=== PATIENT | male | born 1975 | race Asian ===

== ENCOUNTER 2021-06-30 12:46 | Inpatient (IN) | payer OTHER ==
[~2021-06-30] VITALS: Ht 165.1 cm; Wt 54.4 kg
--- NOTE | 2021-06-30 12:55 | NUR ---
[facility] [phone] [facility] [phone]
[2021-06-30] MEDS ORDERED: IV NS 0.9% 1,000 ML BAG IV ONE (13:00)
--- NOTE | 2021-06-30 13:20 | NUR ---
IFC F16 INSERTED. URINE SAMPLE SENT TO LAB
--- NOTE | 2021-06-30 13:24 | NUR ---
MOVE SHEET SUBMITTED.
--- NOTE | 2021-06-30 13:26 | NUR ---
CXR DONE AT BEDSIDE
--- NOTE | 2021-06-30 13:27 | NUR ---
FULL code per charge nurse Hoang De Leon - she will fax the POLST to [phone]
--- NOTE | 2021-06-30 13:30 | NUR ---
COVID ANTIGEN SWAB SENT TO LAB
--- NOTE | 2021-06-30 13:40 | NUR ---
RECTAL TUBE INSERTED
[2021-06-30] MEDS ORDERED: ASCO-352 GT (14:05)
[2021-06-30] MEDS ORDERED: [UNRECOGNIZED DRUG - CODE] SQ (14:05)
[2021-06-30] MEDS ORDERED: AMIO200T5 GT (14:05)
[2021-06-30] MEDS ORDERED: NA P133E RC (14:05)
[2021-06-30] MEDS ORDERED: MAGN400O6 GT (14:05)
[2021-06-30] MEDS ORDERED: NUT.237L67 GT (14:05)
[2021-06-30] MEDS ORDERED: PANT40SU2 GT (14:05)
[2021-06-30] MEDS ORDERED: MELA5TAB GT (14:05)
[2021-06-30] MEDS ORDERED: ALLO100T GT (14:05)
[2021-06-30] MEDS ORDERED: AMIN30LI2 GT (14:05)
[2021-06-30] MEDS ORDERED: ATOR20TA GT (14:05)
[2021-06-30] MEDS ORDERED: HYDR-4076 GT (14:05)
[2021-06-30] MEDS ORDERED: SENN-261 GT (14:05)
[2021-06-30] MEDS ORDERED: CARV3.12 GT (14:05)
[2021-06-30] MEDS ORDERED: BISA10SU11 RC (14:05)
[2021-06-30] MEDS ORDERED: MAG30ORA GT (14:05)
[2021-06-30] MEDS ORDERED: FOLI0.8T2 GT (14:05)
[2021-06-30] MEDS ORDERED: ISOS10TA2 GT (14:05)
[2021-06-30] MEDS ORDERED: AMLO-213 GT (14:05)
[2021-06-30] MEDS ORDERED: PETR113O TP (14:05)
[2021-06-30] MEDS ORDERED: ACET-868 GT (14:05)
[2021-06-30] MEDS ORDERED: ZINC56.713 TP (14:05)
[2021-06-30 14:17] LABS: BASOPHILS # (AUTO) 0.1 K/uL (0.0-0.2); BASOPHILS % (AUTO) 0.7 % (0.0-2.0); EOSINOPHILS % (AUTO) 0.2 % (0.0-6.0); LYMPHOCYTES # (AUTO) 2.9 K/uL (0.8-4.8); LYMPHOCYTES % (AUTO) 14.9 % (20.0-44.0); MEAN CORPUSCULAR HGB CONC 32 g/dl (31.0-36.0); MEAN CORPUSCULAR VOLUME 91 fL (80-96); MONOCYTES # (AUTO) 1.4 K/uL (0.1-1.30); MONOCYTES % (AUTO) 7.3 % (2.0-12.0); NEUTROPHILS # (AUTO) 14.8 K/uL (1.8-8.9); NEUTROPHILS % (AUTO) 76.9 % (43.0-81.0); PLATELET COUNT (AUTO) 366 K/uL (150-450); RED BLOOD CELL COUNT(AUTO) 2.03 MIL/uL (4.5-6.0); WHITE BLOOD COUNT (AUTO) 19.2 K/uL (4.3-11.0)
[2021-06-30] MEDS ORDERED: PANTOPRAZOLE 40 MG VIAL IV ONE (14:30)
[2021-06-30] MEDS ORDERED: PANTOPRAZOLE 40 MG VIAL ONE (14:32)
[2021-06-30 14:47] LABS: ALBUMIN 1.6 g/dL (3.4-5.0); BILIRUBIN,DIRECT 0.1 mg/dL (0.0-0.2); BILIRUBIN,TOTAL 0.3 mg/dL (0.2-1.0); CALCIUM, SERUM 7.7 mg/dL (8.5-10.1); CREATININE 3.1 mg/dL (0.6-1.3); POTASSIUM 3.4 mmol/L (3.5-5.1); TOTAL PROTEIN, SERUM 6.6 g/dL (6.4-8.2)
[2021-06-30 14:51] LABS: BILIRUBIN,URINE NEGATIVE (NEGATIVE); COLOR,URINE YELLOW (YELLOW); LEUKOCYTE ESTERASE ,URINE NEGATIVE (NEGATIVE); NITRITE, URINE NEGATIVE (NEGATIVE); PROTEIN,URINE 30 mg/dl (NEGATIVE); UGLUCOSE NEGATIVE (NEGATIVE); UROBILINOGEN,URINE 0.2 EU/dL (0.2)
[2021-06-30 14:55] LABS: HEMOGLOBIN 5.9 g/dL (13.5-17.5); OCCULT BLOOD STOOL POSITIVE (NEGATIVE)
[2021-06-30 14:56] LABS: HEMATOCRIT 19 % (39-51)
[2021-06-30] MEDS ORDERED: Z GUARD REMEDY 4 OZ OINT TP PRN (15:00)
[2021-06-30] MEDS ORDERED: ONDANSETRON HCL/PF 4 MG/2 ML VIAL IVP PRN (15:00)
[2021-06-30] MEDS ORDERED: ACETAMINOPHEN 325 MG TABLET PO PRN (15:00)
--- NOTE | 2021-06-30 15:01 | NUR ---
RECEIVED A CRITICAL RESULT FROM LAB KAYCEE [id number] BRAY MADE AWARE
[2021-06-30] MEDS ORDERED: VANCOMYCIN 1 GM in IV D5W 250 ML IV ONE (15:30)
[2021-06-30] MEDS ORDERED: CEFEPIME 1 GM in IV D5W 50 ML IV ONE (15:30)
[2021-06-30] MEDS ORDERED: CEFEPIME 1 GM VIAL ONE (15:39)
[2021-06-30] MEDS ORDERED: ONDANSETRON HCL/PF 4 MG/2 ML VIAL ONE (15:40)
[2021-06-30 15:44] LABS: BACTERIA,URINE 1+ /HPF (None Seen); SQUAMOUS EPITHELIAL CELL,UR 0-2 /HPF (None Seen)
[2021-06-30 15:59] LABS: BAND % (MANUAL) 2 % (0.0-5.0); LYMPHOCYTES % (MANUAL) 14 % (16-48); MONOCYTES % (MANUAL) 5 % (0-11.0); NEUTROPHILS % (MANUAL) 78 (42-76); REACTIVE LYMPHOCYTES 1 % (0-0)
--- NOTE | 2021-06-30 16:17 | NUR ---
CALLED NEPHOROLOGY CALLING SELVIN [phone] WILL BE PAGED.
[2021-06-30] MEDS ORDERED: CEFEPIME 1 GM in IV D5W 50 ML IV SCH (16:30)
--- NOTE | 2021-06-30 16:39 | NUR ---
maxipime 1g not administered duplicate order. dr gomes made aware.
[2021-06-30] MEDS ORDERED: VANCOMYCIN 500 MG in IV D5W 100 ML IV PRN (17:00)
--- NOTE | 2021-06-30 17:03 | NUR ---
NEPHOROLOGY DR. ROBYN DOMINGUEZ [phone]
--- NOTE | 2021-06-30 18:42 | NUR ---
GOING TO 312.2 AFTER SHIFT
--- NOTE | 2021-06-30 19:57 | NUR ---
REPORT GIVEN TO AMISHA LUNDBERG.
[2021-06-30 20:00] VITALS: BP 119/75
--- NOTE | 2021-06-30 20:15 | NUR ---
TELE/RN ADMITTING NOTE RECEIVED REPORT FROM MOLDER BENCH ALANA. PATIENT ARRIVED TO UNIT VIA GURNEY AND 2 STAFF MEMBERS. PATIENT IS BEING ADMITTED WITH DX OF ACUTE LOWER GI BLEED. PATIENT IS ALERT AND ORIENTED X 1 AT BASELINE. ABLE TO ANSWER SIMPLE YES/NO QUESTIONS. CONTINUES ON O2 4L VIA NC WITH NO S/SX OF RESPIRATORY DISTRESS NOTED. IV ACCESS TO RIGHT AC #18G, LEFT AC #20G AND LEFT HAND #20G ALL INTACT, PATENT AND SALINE LOCKED. RIGHT CHEST WALL PERMA CATH IN PLACE FOR HD. DRESSING IS CLEAN, DRY AND INTACT. CONTINUES WITH 1ST UNIT OF PRBC WITH NO S/SX OF ADVERSE REACTIONS NOTED. PATIENT IS NPO AT THIS TIME. GTUBE IN PLACE WITH DRESSING CLEAN, DRY AND INTACT. FLUSHED WITH 100CC H2O WITH NO RESISTANCE NOTED. NO RESIDUAL AT THIS TIME. SKIN CHECK PERFORMED ON ADMISSION WITH HEALING ABRASIONS X 3 TO LEFT THIGH. PICTURE TAKEN AND PLACED IN CHART. WOUND CONSULT ORDERED. AREA LEFT OPEN TO AIR - NO DRAINAGE NOTED. CONTACTED [facility] AND SPOKE WITH NURSE RENDON REGARDING PATIENTS STATUS. PATIENT IS VACCINATED AGAINST COVID 19 X 2 DOSES. AT FACILITY, PATIENT HAD GT FEED NEPRO @ 70ML/HR X 14HRS. PATIENT CONNECTED TO TELE MONITOR WITH CURRENT READING SR. PATIENT ORIENTED TO ROOM, CALL LIGHT AND UNIT. CALL LIGHT WITHIN REACH. ASPIRATION, FALL AND SAFETY PRECAUTIONS MAINTAINED. WILL CONTINUE TO MONITOR.
--- NOTE | 2021-06-30 20:17 | NUR ---
pt transferred to 3w per acls protocol.
[2021-06-30 22:00] VITALS: BP 119/75
[2021-06-30 22:21] VITALS: BP 108/65
[2021-06-30 22:36] VITALS: BP 100/60
[2021-06-30 23:21] VITALS: BP 110/65
[2021-07-01] VITALS (8 sets, daily range): BP systolic 102–126; BP diastolic 59–79
--- NOTE | 2021-07-01 05:45 | NUR ---
TELE/RN NOTE CONTACTED PATIENT'S FABY BARRETO. OBTAINED CONSENT FOR HEMODIALYSIS AND GAVE UPDATE ON PATIENT. HD CONSENT COSIGNED WITH KRISTIAN LUNDBERG.
--- NOTE | 2021-07-01 06:30 | NUR ---
TELE/RN NOTE PATIENT CURRENTLY SLEEPING IN BED. ALERT AND ORIENTED TO NAME. ABLE TO ANSWER SIMPLE YES/NO QUESTIONS. CONTINUES ON O2 4L VIA NC WITH NO S/SX OF RESPIRATORY DISTRESS NOTED. IV ACCESS TO RIGHT AC #18G, LEFT AC #20G AND LEFT HAND #20G INTACT, PATENT AND SALINE LOCKED. RIGHT CHEST WALL PERMACATH IN PLACE FOR HD. GOFF CATHETER DRAINING CLEAR, YELLOW URINE TO GRAVITY. OUTPUT THIS SHIFT IS 350ML. FLEXISEAL IN PLACE WITH NO STOOL NOTED. CONTINUES ON NPO STATUS. CALL LIGHT WITHIN REACH. ASPIRATION, FALL AND SAFETY PRECAUTIONS MAINTAINED. WILL ENDORSE PLAN OF CARE TO ONCOMING SHIFT. Addendum: 07/01/21 at 0653 by AMISHA TURNER RN TELE MONITOR CURRENTLY READING SR HR 77
[2021-07-01 06:55] LABS: BASOPHILS # (AUTO) 0.1 K/uL (0.0-0.2); BASOPHILS % (AUTO) 0.8 % (0.0-2.0); EOSINOPHILS % (AUTO) 0.8 % (0.0-6.0); HEMATOCRIT 23 % (39-51); HEMOGLOBIN 7.5 g/dL (13.5-17.5); LYMPHOCYTES # (AUTO) 1.6 K/uL (0.8-4.8); LYMPHOCYTES % (AUTO) 10.2 % (20.0-44.0); MEAN CORPUSCULAR HGB CONC 33 g/dl (31.0-36.0); MEAN CORPUSCULAR VOLUME 89 fL (80-96); MONOCYTES # (AUTO) 1.2 K/uL (0.1-1.30); MONOCYTES % (AUTO) 7.5 % (2.0-12.0); NEUTROPHILS # (AUTO) 12.8 K/uL (1.8-8.9); NEUTROPHILS % (AUTO) 80.7 % (43.0-81.0); PLATELET COUNT (AUTO) 289 K/uL (150-450); RED BLOOD CELL COUNT(AUTO) 2.53 MIL/uL (4.5-6.0); WHITE BLOOD COUNT (AUTO) 15.9 K/uL (4.3-11.0)
--- NOTE | 2021-07-01 07:30 | NUR ---
RN OPENING NOTES PATIENT CURRENTLY SLEEPING IN BED. A/O TO SELF. ABLE TO ANSWER SIMPLE YES/NO QUESTIONS. CONTINUES ON O2 4L VIA NC WITH NO S/SX OF RESPIRATORY DISTRESS NOTED. IV ACCESS TO RIGHT AC #18G, LEFT AC #20G AND LEFT HAND #20G INTACT, PATENT AND SALINE LOCKED. RIGHT CHEST WALL PERMACATH IN PLACE FOR HD. PENDING HD TODAY. GOFF CATHETER DRAINING CLEAR, YELLOW URINE TO GRAVITY. OUTPUT THIS SHIFT IS. FLEXISEAL IN PLACE WITH NO STOOL NOTED. CONTINUES ON NPO STATUS. CALL LIGHT WITHIN REACH. ASPIRATION, FALL AND SAFETY PRECAUTIONS MAINTAINED. WILL CONTINUE TO MONITOR
[2021-07-01] MEDS: CARVEDILOL 3.125 MG TABLET GT SCH ×2 (09:00→17:00)
[2021-07-01] MEDS ORDERED: hydrALAZINE HCL 25 MG TABLET GT PRN (09:00)
[2021-07-01] MEDS: ISOSORBIDE DINITRATE (10MG) 10 MG TABLET GT SCH ×3 (09:00→17:00)
[2021-07-01] MEDS: AMLODIPINE BESYLATE 10 MG TABLET GT SCH (09:00)
[2021-07-01] MEDS: AMIODARONE HCL 200 MG TABLET GT SCH ×2 (09:00→17:00)
[2021-07-01 09:31] LABS: ALBUMIN 1.5 g/dL (3.4-5.0); BILIRUBIN,TOTAL 0.3 mg/dL (0.2-1.0); CALCIUM, SERUM 7.1 mg/dL (8.5-10.1); CREATININE 3.7 mg/dL (0.6-1.3); MAGNESIUM 2.4 mg/dL (1.8-2.4); PHOSPHORUS 7.5 mg/dL (2.5-4.9); POTASSIUM 4.2 mmol/L (3.5-5.1)
[2021-07-01] MEDS: PANTOPRAZOLE 40 MG/PACK PACK GT SCH ×2 (10:46→18:26)
[2021-07-01] MEDS: ALLOPURINOL 100 MG TABLET GT SCH (10:46)
--- NOTE | 2021-07-01 13:11 | NUR ---
RN NOTES MORNING BP MEDS HELD. CURRENT BP 108/60 WITH 62 HR. PATIENT PENDING DIALYSIS ORDER. NO S/SX OF PAIN OR DISTRESS NOTED AT THIS TIME. NO COMPLAINT OF CHEST PAIN. CHARGE NURSE FORTUNATO MADE AWARE. WILL CONTINUE TO MONITOR
--- NOTE | 2021-07-01 17:00 | NUR ---
RN NOTES MEDICATIONS ARE HELD D/T HEMODIALYSIS ONGOING.
[2021-07-01 17:22] LABS: IRON, SERUM 26 ug/dl (50-175); TOTAL IRON BINDING CAPACITY 139 ug/dl (250-450)
--- NOTE | 2021-07-01 17:45 | NUR ---
RN NOTES HEMODIALYSIS COMPLETE. 2L OUTPUT TOTAL. NO COMPLICATIONS NOTED.
[2021-07-01 18:05] LABS: FERRITIN 1827 ng/mL (8-388)
[2021-07-01] MEDS: CEFEPIME 1 GM in IV D5W 50 ML IV SCH (18:26)
--- NOTE | 2021-07-01 18:55 | NUR ---
RN CLOSING NOTES PATIENT CURRENTLY SLEEPING IN BED. ABLE TO BE WAKEN. CONTINUES ON O2 4L VIA NC WITH NO S/SX OF RESPIRATORY DISTRESS NOTED. IV ACCESS TO RIGHT AC #18G, LEFT AC #20G AND LEFT HAND #20G INTACT, PATENT AND SALINE LOCKED. RIGHT CHEST WALL PERMACATH IN PLACE FOR HD. HD DONE TODAY WITH 2L OUTPUT. TOLERATED WELL. GOFF CATHETER DRAINING CLEAR, YELLOW URINE TO GRAVITY. OUTPUT THIS SHIFT IS 400ML. FLEXISEAL IN PLACE WITH NO STOOL OUTPUT TODAY. CONTINUES ON NPO STATUS. PENDING GI CONSULT. ALL ORDERS CARRIED OUT AND NEEDS MET. CALL LIGHT WITHIN REACH. ASPIRATION, FALL AND SAFETY PRECAUTIONS MAINTAINED. WILL ENDORSE PLAN OF CARE TO REGISTERED NURSE RENAL NURSE
--- NOTE | 2021-07-01 19:30 | NUR ---
RN OPENING NOTES PATIENT CURRENTLY SLEEPING IN BED. ABLE TO BE WAKEN. CONTINUES ON O2 4L VIA NC WITH NO S/SX OF RESPIRATORY DISTRESS NOTED. IV ACCESS TO RIGHT AC #18G, LEFT AC #20G AND LEFT HAND #20G INTACT, PATENT AND SALINE LOCKED. RIGHT CHEST WALL PERMACATH IN PLACE FOR HD. HD DONE TODAY WITH 2L OUTPUT. TOLERATED WELL. GOFF CATHETER DRAINING CLEAR, YELLOW URINE TO GRAVITY. FLEXISEAL IN PLACE WITH NO STOOL OUTPUT NOTED AT THIS TIME. NPO STATUS PENDING GI CONSULT DUE TO LOWER ABDOMINAL BLEEDING. ALL NEEDS MET AT THIS TIME. CALL LIGHT WITHIN REACH. ASPIRATION, FALL AND SAFETY PRECAUTIONS MAINTAINED.WILL CONTINUE TO MONITOR.
[2021-07-02] VITALS: BP 120/79
[2021-07-02 04:00] VITALS: BP 122/76
--- NOTE | 2021-07-02 06:48 | NUR ---
RN CLOSING NOTES PATIENT CURRENTLY SLEEPING IN BED. ABLE TO BE WAKEN. ON O2 2L VIA NC WITH NO S/SX OF RESPIRATORY DISTRESS NOTED. IV ACCESS TO RIGHT AC #18G, LEFT AC #20G AND LEFT HAND #20G INTACT, PATENT AND SALINE LOCKED. RIGHT CHEST WALL PERMACATH IN PLACE FOR HD. HD DONE YESTERDAY WITH 2L OUTPUT. TOLERATED WELL. PT TO GAVE DIALYSIS TODAY WELL. GOFF CATHETER DRAINING CLEAR, YELLOW URINE TO GRAVITY. FLEXISEAL IN PLACE WITH NO STOOL OUTPUT NOTED. NPO STATUS PENDING GI CONSULT DUE TO LOWER ABDOMINAL BLEEDING. ALL NEEDS MET AT THIS TIME. CALL LIGHT WITHIN REACH. ASPIRATION, FALL AND SAFETY PRECAUTIONS MAINTAINED.WILL ENDORSE CRAE TO DAY SHIFT NURSE.
--- NOTE | 2021-07-02 07:20 | NUR ---
RN OPENING NOTES RECEIVED PATIENT IN BED WITH EYES CLOSED, ABLE TO BE WAKEN. ON 2L OF O2 VIA NC WITH NO S/SX OF RESPIRATORY DISTRESS NOTED. IV ACCESS TO RIGHT AC #18G, LEFT AC #20G AND LEFT HAND #20G INTACT, PATENT AND SALINE LOCKED. RIGHT CHEST WALL PERMACATH IN PLACE FOR HD. HD DONE TODAY WITH 2L OUTPUT. TOLERATED WELL. GOFF CATHETER DRAINING CLEAR, YELLOW URINE TO GRAVITY. FLEXISEAL IN PLACE WITH NO STOOL OUTPUT NOTED AT THIS TIME. SAFETY MEASURES IN PLACE: BED IN THE LOWEST POSITION, WHEELS LOCKED, SIDE RAILS UP X2, CALL LIGHT WITHIN REACH. WILL CONTINUE TO MONITOR.
[2021-07-02 08:46] LABS: CALCIUM, SERUM 7.4 mg/dL (8.5-10.1); CREATININE 2.3 mg/dL (0.6-1.3)
[2021-07-02] MEDS: AMIODARONE HCL 200 MG TABLET GT SCH ×3 (09:00→17:00)
[2021-07-02] MEDS: ISOSORBIDE DINITRATE (10MG) 10 MG TABLET GT SCH ×4 (09:00→17:00)
[2021-07-02] MEDS: CARVEDILOL 3.125 MG TABLET GT SCH ×3 (09:00→17:00)
[2021-07-02] MEDS: AMLODIPINE BESYLATE 10 MG TABLET GT SCH ×2 (09:00→10:05)
[2021-07-02] MEDS: PROSTAT (PYXIS) 30 ML UDC GT SCH (09:00)
--- NOTE | 2021-07-02 09:00 | NUR ---
RN NOTES PATIENT REMAINS NPO STATUS. RECEIVED ORDER FOR HEMODIALYSIS TODAY. MORNING MEDICATIONS HELD PER NPO STATUS AND EXPECTED HEMODIALYSIS TREATMENT. PATIENTS CURRENT BP 107/70 WITH HR OF 71. NO S/SX OF DISCOMFORT OR DISTRESS NOTED AT THIS TIME. WILL CONTINUE MONITORING
[2021-07-02] MEDS: PANTOPRAZOLE 40 MG/PACK PACK GT SCH ×2 (10:04→17:00)
[2021-07-02] MEDS: ALLOPURINOL 100 MG TABLET GT SCH (10:05)
[2021-07-02] MEDS: CEFEPIME 1 GM in IV D5W 50 ML IV SCH (16:51)
[2021-07-02] MEDS ORDERED: EPOETIN ALFA-EPBX 4,000 UNIT/ML VIAL IV SCH (18:00)
--- NOTE | 2021-07-02 18:50 | NUR ---
RN CLOSING NOTES PATIENT IN BED, AWAKE. HEMODIALYSIS ONGOING. NO COMPLICATIONS NOTED AT THIS TIME. TOLERATING WELL. ALL ORDERS CARRIED OUT TODAY AND NEEDS MET. WILL ENDORSE TO OPERATOR ELECTRONIC WARFARE NURSE FOR JIMY
[2021-07-02] MEDS ORDERED: ALBUMIN 25% 25 GM in PREMIX 1 EA IV PRN (19:00)
[2021-07-02 20:00] VITALS: BP 110/76
[2021-07-02] MEDS ORDERED: VANCOMYCIN 1 GM in IV D5W 250 ML IV ONE (20:00)
--- NOTE | 2021-07-02 20:00 | NUR ---
ELECTRONIC GLUING MACHINE OPERATOR NOTES RECEIVED LAYING COMFORTABLY ON BED,A/O X1,HEMODIALYSIS IN PROGRESS,HD NURSE AT BEDSIDE.SALINE LOCK LEFT AND RIGHT ARM INTACT AND PATENT,WITH RIGHT CHEST WALL PERMA CATH HD ACCESS.GOFF CATH IN PLACE WITH SCANT OUTPUT.FLEXI SEAL IN PLACE.NO OUTPUT NOTED.WILL CONTINUE TO MONITOR STATUS.
--- NOTE | 2021-07-02 21:00 | NUR ---
TOBACCO CHECKOUT CLERK NOTES REPORTED BY JORI REICH,TELE READING CONVERTED TO A-FIB,HR OF 130.HD WITH WILL BE DONE IN 10 MINUTES.
--- NOTE | 2021-07-02 21:15 | NUR ---
EDUCATOR SENIOR CLINICAL NOTES COMPLETED HD TREATMENT TODAY,1 LITER TAKEN OUT.NO SOB NOTED, CALM AND QUIET ON BED.
--- NOTE | 2021-07-02 22:30 | NUR ---
TARE WEIGHER NOTES TELE READING AT THIS TIME [id number],PATIENT RESTING COMFORTABLY ON BED.DENIES ANY CHEST DISCOMFORTS.
[2021-07-03] VITALS: BP 112/71
[2021-07-03 04:00] VITALS: BP 106/71
[2021-07-03] MEDS ORDERED: VANCOMYCIN 500 MG in IV D5W 100 ML IV PRN (06:00)
--- NOTE | 2021-07-03 06:38 | NUR ---
RAILROAD POLICE NOTES FAIRLY RESTED AT NIGHT,HD TREATMENT TOLERATED WELL,GOFF CATH IN PLACE,FLEXI SEAL IN PLACE WITH SCANTY OUTPUT ON TUBE,IN NO ACUTE DISTRESS.WILL ENDORSE TO DAY NURSE FOR JIMY.
[2021-07-03 07:14] LABS: CALCIUM, SERUM 7.4 mg/dL (8.5-10.1); CREATININE 2.1 mg/dL (0.6-1.3); POTASSIUM 3.8 mmol/L (3.5-5.1)
[2021-07-03 08:00] VITALS: BP 118/77
--- NOTE | 2021-07-03 08:00 | NUR ---
RN OPENING NOTE Patient in bed, asleep. Non-verbal. On O2 at 2 LPM via NC, no SOB or s/s of distress noted. IV access on LAC intact and patent. Azevedo catheter in place draining to a blood tinged urine. Felxiseal in place, intact. Safety precautions in place: bed in low, locked position; siderails up x 2; call light within reach. Will continue to monitor.
[2021-07-03] MEDS: PROSTAT (PYXIS) 30 ML UDC GT SCH (09:00)
[2021-07-03 09:32] LABS: BASOPHILS # (AUTO) 0.1 K/uL (0.0-0.2); BASOPHILS % (AUTO) 1.3 % (0.0-2.0); EOSINOPHILS % (AUTO) 2.1 % (0.0-6.0); HEMATOCRIT 25 % (39-51); HEMOGLOBIN 8.4 g/dL (13.5-17.5); LYMPHOCYTES % (AUTO) 11.9 % (20.0-44.0); MEAN CORPUSCULAR HGB CONC 34 g/dl (31.0-36.0); MEAN CORPUSCULAR VOLUME 89 fL (80-96); MONOCYTES # (AUTO) 0.9 K/uL (0.1-1.30); MONOCYTES % (AUTO) 10.7 % (2.0-12.0); NEUTROPHILS # (AUTO) 6.1 K/uL (1.8-8.9); PLATELET COUNT (AUTO) 429 K/uL (150-450); RED BLOOD CELL COUNT(AUTO) 2.78 MIL/uL (4.5-6.0); WHITE BLOOD COUNT (AUTO) 8.3 K/uL (4.3-11.0)
[2021-07-03] MEDS: PANTOPRAZOLE 40 MG/PACK PACK GT SCH ×2 (09:33→17:15)
[2021-07-03] MEDS: ALLOPURINOL 100 MG TABLET GT SCH (09:34)
[2021-07-03] MEDS: CARVEDILOL 3.125 MG TABLET GT SCH ×2 (09:34→17:16)
[2021-07-03] MEDS: AMLODIPINE BESYLATE 10 MG TABLET GT SCH (09:34)
[2021-07-03] MEDS: AMIODARONE HCL 200 MG TABLET GT SCH ×2 (09:34→17:15)
[2021-07-03] MEDS: ISOSORBIDE DINITRATE (10MG) 10 MG TABLET GT SCH ×3 (09:34→17:15)
[2021-07-03] MEDS: CEFEPIME 1 GM in IV D5W 50 ML IV SCH (15:19)
[2021-07-03 16:00] VITALS: BP 118/73
[2021-07-03] MEDS ORDERED: PEG 3350/NA SULF,BICARB,CL/KCL 4,000 ML BOTTLE PO ONE (19:30)
[2021-07-03 20:00] VITALS: BP 121/80
--- NOTE | 2021-07-03 20:00 | NUR ---
MS RN NOTES RECEIVED ON BED SLEEPING,AROUSABLE TO VERBAL STIMULI,BREATHING NON LABORED,GOFF CATH IN PLACE DRAINING CLEAR YELLOW URINE OUTPUT.WITH FLEXI SEAL IN PLACE,DRAINS SMALL OUTPUT.WITH RIGHT CHEST WALL PERMA CATH FOR HD ACCESS.SALINE LOCK RIGHT AND LEFT ARM INTACT AND PATENT.ON CLEAR LIQUID ORDERED,WILL START ON GOLYTELY/GT,GOING FOR COLONOSCOPY TOMORROW BY DR BASURTO.WILL CONTINUE TO MONITOR STATUS,
--- NOTE | 2021-07-03 20:03 | NUR ---
RN CLOSING NOTE Patient in bed, resting. Patient remained stable the whole shift. No active bleeding noted. Due meds given. Patient kept clean and dry. Safety precautions in place: bed in low, locked position; siderails up x 2; call light within reach. Will endorse to cutter and presser nurse for JIMY.
--- NOTE | 2021-07-03 20:05 | NUR ---
MS RN NOTES SPOKE TO HARJIT BARRETO,GOT TELEPHONE CONSENT FOR COLONOCOSPY,WITNESSED BY KELSEY LUNDBERG.
[2021-07-03] MEDS ORDERED: PEG 3350/NA SULF,BICARB,CL/KCL 4,000 ML BOTTLE ONE (20:46)
--- NOTE | 2021-07-03 20:52 | NUR ---
MS RN NOTES STARTED ON TO GIVE GOLYTELY/GT ORDERED.,WILL MONITOR FOR FLUID OVERLOAD
--- NOTE | 2021-07-04 | NUR ---
MS RN NOTES TOLERATED ONLY 1500 ON GOLYTELY,HAD BM,GOFF DRAINS 350ML OF URINE,NPO STATUS GOING FOR COLONOSCOPY UNDER DR BASURTO,CONSENT ON CHART,CALL LIGHT IN REACH,NEEDS ATTENDED.
[2021-07-04 07:42] LABS: CALCIUM, SERUM 8.2 mg/dL (8.5-10.1); CREATININE 3.1 mg/dL (0.6-1.3); POTASSIUM 3.8 mmol/L (3.5-5.1)
--- NOTE | 2021-07-04 07:48 | NUR ---
MS RN OPENING NOTES RECEIVED PATIENT IN BED, AWAKE, A/O X1. PATIENT ON OXYGEN THERAPY AT 2LPM VIA NC WITH NO S/SX OF RESPIRATORY DISTRESS NOTED. IV ACCESS TO RIGHT AC #18G, LEFT AC #20G AND LEFT HAND #20G INTACT, PATENT AND SALINE LOCKED. RIGHT CHEST WALL PERMACATH IN PLACE FOR HD. GOFF CATHETER DRAINING CLEAR, YELLOW URINE TO GRAVITY. FLEXISEAL IN PLACE WITH NO STOOL OUTPUT NOTED AT THIS TIME. SAFETY MEASURES IN PLACE: BED IN THE LOWEST POSITION, WHEELS LOCKED, SIDE RAILS UP X2, CALL LIGHT WITHIN REACH. WILL CONTINUE TO MONITOR PATIENT. NPO STATUS FOR PROCEDURE.
[2021-07-04 07:52] VITALS: BP 112/73
[2021-07-04] MEDS: AMIODARONE HCL 200 MG TABLET GT SCH ×2 (08:42→16:46)
[2021-07-04] MEDS: CARVEDILOL 3.125 MG TABLET GT SCH ×2 (08:43→16:47)
[2021-07-04] MEDS: AMLODIPINE BESYLATE 10 MG TABLET GT SCH (08:44)
[2021-07-04] MEDS: ISOSORBIDE DINITRATE (10MG) 10 MG TABLET GT SCH ×3 (08:44→16:47)
[2021-07-04] MEDS: PANTOPRAZOLE 40 MG/PACK PACK GT SCH ×2 (08:45→16:46)
[2021-07-04] MEDS: PROSTAT (PYXIS) 30 ML UDC GT SCH (08:45)
[2021-07-04] MEDS: ALLOPURINOL 100 MG TABLET GT SCH (08:45)
[2021-07-04] MEDS ORDERED: ANESTHESIA TRAY IN PYXIS 1 EA TRAY MC ONE (10:01)
--- NOTE | 2021-07-04 10:52 | NUR ---
MS RN NOTES PATIENT LEFT FOR PROCEDURE
--- NOTE | 2021-07-04 12:07 | NUR ---
MS RN NOTES PATIENT BACK FROM PROCEDURE. AWAKE, A/O X1. VITAL SIGNS BP: 159/69, HR: 73 O2 100% RR 18 WILL CONTINUE TO MONITOR PATIENT.
[2021-07-04] MEDS: CEFEPIME 1 GM in IV D5W 50 ML IV SCH (14:44)
[2021-07-04 16:39] VITALS: BP 146/63
[2021-07-04 16:47] VITALS: BP 130/74
--- NOTE | 2021-07-04 17:01 | NUR ---
MS TEENAGE BABYSITTER NOTES PATIENT DISCHARGED BACK TO SNF ([facility]). PATIENT IS MEDICALLY STABLE. FAMILY AT BEDSIDE. ALL DISCHARGE PAPERWORK READY AND PROVIDED TO FAMILY TO SIGN. DISCHARGE INSTRUCTIONS PROVIDED. PATIENT HAD NO BELONGINGS. OGFF CATH WILL STAY IN PLACE. ONE IV ACCESS REMAINS WITH PATIENT TO CONTINUE IV ANTIBIOTICS AT THE FACILITY. 2 OTHER IV ACCESSES REMOVED. G-TUBE IN PLACE AND INTACT. PATIENT LEFT THE UNIT VIA GURNEY ACCOMPANIED BY 2 project management it specialist AT 1703.
== END 2021-07-04 18:19 | DRG 254 ==
LOC: ER 12:54 → TELE 19:22 → MED 07-03 15:01
PROVIDERS: ADMIT Internal Medicine; ATTEND Internal Medicine
PROC: 30233N1 Transfusion of Nonautologous Red Blood Cells into Peripheral Vein, Percutaneous Approach (ICD-10-PCS; principal; 2021-06-30)
PROC: 0DJD8ZZ Inspection of Lower Intestinal Tract, Via Natural or Artificial Opening Endoscopic (ICD-10-PCS; 2021-07-04)
PROC: 5A1D70Z Performance of Urinary Filtration, Intermittent, Less than 6 Hours Per Day (ICD-10-PCS; 2021-07-04)
DX: K64.8 Other hemorrhoids (principal); J96.21 Acute and chronic respiratory failure with hypoxia; I21.A1 Myocardial infarction type 2; R53.2 Functional quadriplegia; K57.31 Diverticulosis of large intestine without perforation or abscess with bleeding; D62 Acute posthemorrhagic anemia; G93.1 Anoxic brain damage, not elsewhere classified; I12.0 Hypertensive chronic kidney disease with stage 5 chronic kidney disease or end stage renal disease; I48.91 Unspecified atrial fibrillation; N18.6 End stage renal disease; Z99.2 Dependence on renal dialysis; J45.909 Unspecified asthma, uncomplicated; K62.5 Hemorrhage of anus and rectum; I77.6 Arteritis, unspecified; R13.10 Dysphagia, unspecified; Z86.74 Personal history of sudden cardiac arrest
CPT/HCPCS: 36415; 71045-TC; 80048-TC; 80053-TC; 80076-TC; 80202-TC; 81001; 82272-TC; 82728-TC; 82962-TC; 83540-TC; 83605-TC; 83735-TC; 83880; 84100-TC; 84484-TC; 85025-TC; 85730-TC; 86706; 86850-TC; 87040-TC; 87081-TC; 87340; 90935-TC; 93307-TC; A4216; C9113; C9803; G0378; J0690; J0692; J0885; J2405; J3370; J3490; J7030; J7060; P9016; P9047

== ENCOUNTER 2022-02-27 14:31 | Inpatient (IN) | payer OTHER ==
[~2022-02-27] VITALS: Ht 165.1 cm; Wt 42.2 kg
[~2022-02-27 14:31] MED LIST: ACET-868 GT; ALLO100T GT; AMLO-213 GT; ASPI-1169 GT; ATOR20TA GT; BISA10SU11 RC; CARV3.12 GT; CLON0.1T GT; HEPA50007 SQ; INSU100I47 SQ; LANS30CA56 GT; MAG30ORA GT; MAGN400O6 GT; NA P133E RC; NUT.237L67 GT; [UNRECOGNIZED DRUG - CODE] IV
--- NOTE | 2022-02-27 14:55 | NUR ---
TECH AT BEDSIDE FOR EKG
--- NOTE | 2022-02-27 15:04 | NUR ---
URINE SAMPLE COLLECTED AND SENT TO LAB
--- NOTE | 2022-02-27 15:20 | NUR ---
placed on 2l o2 via nc, saturating at 97%.
[2022-02-27 15:26] LABS: BASOPHILS # (AUTO) 0.1 K/uL (0.0-0.2); BASOPHILS % (AUTO) 1.1 % (0.0-2.0); EOSINOPHILS % (AUTO) 0.2 % (0.0-6.0); HEMATOCRIT 26 % (39-51); HEMOGLOBIN 8.6 g/dL (13.5-17.5); LYMPHOCYTES # (AUTO) 1.9 K/uL (0.8-4.8); LYMPHOCYTES % (AUTO) 15.7 % (20.0-44.0); MEAN CORPUSCULAR HGB CONC 33 g/dl (31.0-36.0); MEAN CORPUSCULAR VOLUME 92 fL (80-96); MONOCYTES # (AUTO) 1.2 K/uL (0.1-1.30); MONOCYTES % (AUTO) 10.4 % (2.0-12.0); NEUTROPHILS # (AUTO) 8.6 K/uL (1.8-8.9); NEUTROPHILS % (AUTO) 72.6 % (43.0-81.0); PLATELET COUNT (AUTO) 764 K/uL (150-450); RED BLOOD CELL COUNT(AUTO) 2.88 MIL/uL (4.5-6.0); WHITE BLOOD COUNT (AUTO) 11.8 K/uL (4.3-11.0)
[2022-02-27 15:32] LABS: ALANINE AMINOTRANSFERASE 54 U/L (12-78); ALBUMIN 3.1 g/dL (3.4-5.0); ALKALINE PHOSPHATASE 80 U/L (46-116); ASPARTATE AMINOTRANSFERASE 44 U/L (15-37); BILIRUBIN,DIRECT 0.1 mg/dL (0.0-0.2); BILIRUBIN,TOTAL 0.3 mg/dL (0.2-1.0); CALCIUM, SERUM 9.2 mg/dL (8.5-10.1); CARBON DIOXIDE 19 mmol/L (21-32); CHLORIDE 107 mmol/L (98-107); CREATININE 3.4 mg/dL (0.6-1.3); GLUCOSE 102 mg/dL (74-106); POTASSIUM 5.5 mmol/L (3.5-5.1); SODIUM SERUM 140 mmol/L (136-145); TOTAL PROTEIN, SERUM 8.6 g/dL (6.4-8.2)
[2022-02-27 15:35] LABS: UREA NITROGEN, BLOOD 87 mg/dL (7-18)
[2022-02-27 15:37] LABS: BILIRUBIN,URINE NEGATIVE (NEGATIVE); COLOR,URINE YELLOW (YELLOW); LEUKOCYTE ESTERASE ,URINE TRACE (NEGATIVE); NITRITE, URINE NEGATIVE (NEGATIVE); PH,URINE 5.5 (5.0-8.0); PROTEIN,URINE 2+ mg/dl (NEGATIVE); UGLUCOSE NEGATIVE (NEGATIVE); UROBILINOGEN,URINE 0.2 EU/dL (0.2)
[2022-02-27 15:48] LABS: BACTERIA,URINE 1+ /HPF (None Seen)
[2022-02-27 15:49] LABS: COARSE GRANULAR CASTS,URINE Few /LPF (None Seen); URINE AMORPHOUS URATE Few /HPF (None Seen)
[2022-02-27 15:50] LABS: YEAST,URINE Few /HPF (None Seen)
[2022-02-27] MEDS ORDERED: CEFTRIAXONE 1GM BAG (ER ONLY) 1 GM/50 ML PIGGYBACK IV ONE (16:30)
--- NOTE | 2022-02-27 16:30 | NUR ---
COVID SWAB COLLECTED AND SENT TO LAB
[2022-02-27] MEDS ORDERED: Z GUARD REMEDY 4 OZ OINT TP PRN (17:30)
[2022-02-27] MEDS ORDERED: ONDANSETRON HCL/PF 4 MG/2 ML VIAL IVP PRN (17:30)
[2022-02-27] MEDS ORDERED: NA PHOS,M-B/NA PHOS,DI-BA 1 EA ENEMA RC PRN (17:30)
[2022-02-27] MEDS ORDERED: BISACODYL SUPP (10 MG) 10 MG/SUPP.RECT SUPP.RECT RC PRN (17:30)
[2022-02-27] MEDS ORDERED: MAGNESIUM HYDROXIDE 30 ML UDC PO PRN (17:30)
[2022-02-27] MEDS ORDERED: DEXTROSE 50%-WATER 50 ML DISP.SYRIN IV PRN (17:30)
[2022-02-27] MEDS ORDERED: NEPRO VAN 237 ML CAN GT PRN (17:30)
[2022-02-27] MEDS ORDERED: ACETAMINOPHEN 325 MG TABLET PO PRN (17:30)
[2022-02-27] MEDS ORDERED: CLONIDINE HCL 0.1 MG TABLET GT PRN (17:30)
[2022-02-27] MEDS ORDERED: MAG HYDROX/AL HYDROX/SIMETH 30 ML UDC PO PRN (17:30)
[2022-02-27 18:43] LABS: BAND % (MANUAL) 1 % (0.0-5.0); LYMPHOCYTES % (MANUAL) 17 % (16-48); MONOCYTES % (MANUAL) 10 % (0-11.0); NEUTROPHILS % (MANUAL) 72 (42-76)
--- NOTE | 2022-02-27 18:43 | NUR ---
GOT BED ASSIGNMENT > CHANGE OF SHIFT 314-2
--- NOTE | 2022-02-27 19:42 | NUR ---
REPORT GIVEN TO SARAVANAN Tolentino RN FOR JIMY
--- NOTE | 2022-02-27 19:50 | NUR ---
TELE ADMISSION NOTE RECEIVED PATIENT FROM ER. REPORT WAS GIVEN BY TOÑO BLEVINS. PATIENT IS NON-VERBAL, UNABLE TO OBTAIN PATIENT'S INFORMATION FROM HIMSELF. PT'S HEALTH INFORMATION WAS OBTAINED THROUGH PATIENT'S CHART. V/S WERE TAKEN WHEN PATIENT ARRIVES. PATIENT IS ON 2 LPM OXYGEN, NO S/S OF DISTRESS, NO SOB; TOLERATES WELL. HE IS ON EXTERNAL TELE MONITOR, SHOWING SINUS RHYTHM AT 90S. PATIENT HAS A GOFF CATHETER, CLEAR YELLOW COLOR URINE DRAINING BY THE GRAVITY INTO THE BAG. SKIN IS INTACT. NO S/S OF HAVING PAIN. IV ACCESS IS AT HIS RIGHT WRIST, #24G, SL. PATIENT HAS A G-TUBE, FLUSHED WITH 30 CC OF WATER. NO KINK OR CLOGGED. WILL CONTINUE MONITOR PATIENT'S CONDITION DURING THE SHIFT.
--- NOTE | 2022-02-27 20:05 | NUR ---
PT TRANSFERRED TO 314-2 VIA ACLS PROTOCOL. VSS. PT TOLERATED TRANSFER WELL.
[2022-02-27] MEDS: MEROPENEM 500 MG in IV NS 0.9% 50 ML IV SCH (20:54)
[2022-02-27] MEDS ORDERED: VANCOMYCIN 0.75 GM in IV D5W 250 ML IV SCH (21:00)
--- NOTE | 2022-02-27 21:51 | NUR ---
CENTRIFUGAL SUPERVISOR NOTE CHECKED PATIENT BS , IT IS 83. GIVE PATIENT 118 ML OF APPLE JUICE THROUGH G-TUBE. WILL RECHECK THE BS IN 30 MINUTES.
[2022-02-27] MEDS: BLOOD SUGAR DIAGNOSTIC 1 EACH STRIP IN SCH ×2 (21:55→23:22)
[2022-02-27] MEDS: HEPARIN SODIUM, PORCINE 5000 UNITS/1 ML VIAL SQ SCH (22:00)
[2022-02-27] MEDS: ATORVASTATIN 10 MG TABLET GT SCH (22:03)
--- NOTE | 2022-02-27 23:23 | NUR ---
LACE BURN OUT TENDER NOTE RECHECK THE BLOOD SUGAR, IT IS 155. PATIENT IS CALM AND SLEEPING.
--- NOTE | 2022-02-27 23:50 | NUR ---
BS IS 155. SLIDING SCALE INSULIN NOT GIVEN BECAUSE PATIENT IS NOT ON FEEDING.; AND HIS BS WAS 83 BEFORE GIVING HIM APPLE JUICE AT 2130 ON .
[2022-02-28 04:00] VITALS: BP 141/91
[2022-02-28] MEDS: BLOOD SUGAR DIAGNOSTIC 1 EACH STRIP IN SCH ×4 (05:59→23:57)
[2022-02-28 06:30] LABS: BASOPHILS # (AUTO) 0.1 K/uL (0.0-0.2); BASOPHILS % (AUTO) 0.9 % (0.0-2.0); EOSINOPHILS % (AUTO) 0.2 % (0.0-6.0); HEMATOCRIT 24 % (39-51); HEMOGLOBIN 7.8 g/dL (13.5-17.5); LYMPHOCYTES # (AUTO) 1.2 K/uL (0.8-4.8); LYMPHOCYTES % (AUTO) 9.2 % (20.0-44.0); MEAN CORPUSCULAR HGB CONC 32 g/dl (31.0-36.0); MEAN CORPUSCULAR VOLUME 92 fL (80-96); MONOCYTES % (AUTO) 7.4 % (2.0-12.0); NEUTROPHILS # (AUTO) 10.7 K/uL (1.8-8.9); NEUTROPHILS % (AUTO) 82.3 % (43.0-81.0); PLATELET COUNT (AUTO) 672 K/uL (150-450); RED BLOOD CELL COUNT(AUTO) 2.63 MIL/uL (4.5-6.0)
[2022-02-28 07:01] LABS: CALCIUM, SERUM 9.1 mg/dL (8.5-10.1); CREATININE 2.8 mg/dL (0.6-1.3); MAGNESIUM 3.3 mg/dL (1.8-2.4); PHOSPHORUS 6.1 mg/dL (2.5-4.9); POTASSIUM 4.8 mmol/L (3.5-5.1)
--- NOTE | 2022-02-28 07:30 | NUR ---
RN Opening Note Patient non verbal, not able to express his own concerns. Patient responds to name and simple questions. Discussed plan of care. Patient with no signs of distress or discomfort, IV with no signs of infiltration. Using FLACC patient score is 0/10. Will continue to monitor throughout shift and provide care as needed. All safety precautions taken, call light and table within reach, bed at lowest position.
--- NOTE | 2022-02-28 07:57 | NUR ---
TELE CLOSING NOTE PATIENT IS SLEEPING IN BED. CONTRACTED FOUR EXTREMITIES. PATIENT IS ON 2 LPM OXYGEN, NO S/S OF DISTRESS, NO SOB; TOLERATES WELL. HE IS ON EXTERNAL TELE MONITOR, SHOWING SINUS RHYTHM AT 90S. PATIENT HAS A GOFF CATHETER, CLEAR YELLOW COLOR URINE DRAINING BY THE GRAVITY INTO THE BAG. SKIN IS INTACT. NO S/S OF HAVING PAIN. IV ACCESS IS AT HIS RIGHT WRIST, #24G, SL. PATENT AND INTACT. PATIENT HAS G-TUBE FEEDING @40 ML/HR. TOLERATED WELL. G-TUBE IS PATENT AND INTACT. NO KINK OR CLOGGED. WILL ENDORSE NEXT SHIFT NURSE FOR CONTINUE PATIENT CARE.
[2022-02-28 08:00] VITALS: BP 142/90
[2022-02-28] MEDS ORDERED: D5W IV SCH ×4 (09:00)
[2022-02-28] MEDS ORDERED: GENTAMICIN IV SCH ×4 (09:00)
[2022-02-28] MEDS: ALLOPURINOL 100 MG TABLET GT SCH (09:34)
[2022-02-28] MEDS: ASPIRIN 81 MG TAB.CHEW GT SCH (09:34)
[2022-02-28] MEDS: PANTOPRAZOLE 40 MG VIAL IV SCH (09:35)
[2022-02-28] MEDS: CARVEDILOL 3.125 MG TABLET GT SCH ×2 (09:35→16:42)
[2022-02-28] MEDS: AMLODIPINE BESYLATE 10 MG TABLET GT SCH (09:35)
[2022-02-28] MEDS: HEPARIN SODIUM, PORCINE 5000 UNITS/1 ML VIAL SQ SCH ×2 (09:37→21:17)
[2022-02-28] MEDS: MEROPENEM 500 MG in IV NS 0.9% 50 ML IV SCH ×2 (10:06→19:58)
[2022-02-28 16:00] VITALS: BP 130/81
--- NOTE | 2022-02-28 18:07 | NUR ---
RN Closing Note Patient responds to name, not able to express his concerns. Will endorse report to night nurse for continuity of care. Patient remained safe and stable throughout shift. Will continue to monitor throughout shift and provide care as needed. All safety precautions taken, call light and table within reach, bed at lowest position.
--- NOTE | 2022-02-28 19:10 | NUR ---
RN OPENING NOTES PATIENT IS IN BED SLEEPING. PATIENT IS NON-VERBAL. EASILY BEING AROUSED BY TOUCHING. IV ACCESS IS AT HIS RIGHT WRIST, #22G, PATENT AND INTACT. G-TUBE IS RUNNING JEVITY 1.2 @40 ML/HR. NO RESIDUAL. TOLERATED WELL. PATIENT IS ON 2 LPM OXYGEN, NO S/S DISTRESS OR SOB. SAFETY MEASURES IN PLACE: BED IN LOW POSITION, LOCKED,; CALL LIGHT IS IN REACH; SIDE RAILS UP X 3. WILL CONTINUE WATCHING THE PATIENT'S CONDITION AND PROVIDE CARE FOR HIS NEEDS.
[2022-02-28 20:00] VITALS: BP 124/82
[2022-02-28] MEDS: ATORVASTATIN 10 MG TABLET GT SCH (21:18)
[2022-02-28] MEDS: VANCOMYCIN 500 MG in IV D5W 100 ML IV SCH (21:19)
[2022-03-01] VITALS: BP 132/86
[2022-03-01] MEDS: JEVITY 1.2 CAL 1,000 ML BOTTLE GT PRN (02:00)
[2022-03-01 04:00] VITALS: BP 144/84
[2022-03-01] MEDS: ACETAMINOPHEN 325 MG TABLET MC PRN ×3 (04:48→15:27)
--- NOTE | 2022-03-01 04:58 | NUR ---
HR GENERALIST NOTE PATIENT IS HAVING FEVER, TEMP: 100.9 F ORALLY. V/S ARE: BP 144/84, HR: 116, RR: 18, O2 SAT IS 99% WITH 2 LPM NC. GIVEN PRN MEDICATION TYLENOL 650 MG FOR FEVER. CHARGE NURSE, AZRA, NOTIFIED.
[2022-03-01] MEDS: BLOOD SUGAR DIAGNOSTIC 1 EACH STRIP IN SCH ×3 (05:21→17:28)
[2022-03-01 07:22] LABS: CALCIUM, SERUM 9.5 mg/dL (8.5-10.1); CREATININE 2.7 mg/dL (0.6-1.3); POTASSIUM 5.4 mmol/L (3.5-5.1)
--- NOTE | 2022-03-01 07:35 | NUR ---
PLANT OPERATOR/SHIFT SUPERVISOR CLOSING NOTES PATIENT IS IN BED SLEEPING. HE IS EASILY BEING AROUSED BY TOUCHING. IV ACCESS IS AT HIS RIGHT WRIST, #22G,SL, PATENT AND INTACT. G-TUBE IS RUNNING JEVITY 1.2 @40 ML/HR. NO RESIDUAL. TOLERATED WELL. PATIENT IS ON 2 LPM OXYGEN, NO S/S DISTRESS OR SOB. PATIENT STARTED HAVING FEVER AT AROUND 0420. TYLENOL 650 MG WAS GIVEN THROUGH G-TUBE. SAFETY MEASURES IN PLACE: BED IN LOW POSITION, LOCKED,; CALL LIGHT IS IN REACH; SIDE RAILS UP X 3. WILL ENDORSE NEXT SHIFT NURSE FOR CONTINUING CARE OF THE PATIENT.
[2022-03-01 08:00] VITALS: BP 134/88
[2022-03-01 08:09] LABS: BASOPHILS # (AUTO) 0.1 K/uL (0.0-0.2); BASOPHILS % (AUTO) 1.9 % (0.0-2.0); EOSINOPHILS % (AUTO) 0.6 % (0.0-6.0); HEMATOCRIT 27 % (39-51); HEMOGLOBIN 8.6 g/dL (13.5-17.5); LYMPHOCYTES % (AUTO) 12.9 % (20.0-44.0); MEAN CORPUSCULAR HGB CONC 32 g/dl (31.0-36.0); MEAN CORPUSCULAR VOLUME 92 fL (80-96); MONOCYTES # (AUTO) 0.6 K/uL (0.1-1.30); MONOCYTES % (AUTO) 8.6 % (2.0-12.0); NEUTROPHILS # (AUTO) 5.7 K/uL (1.8-8.9); PLATELET COUNT (AUTO) 661 K/uL (150-450); RED BLOOD CELL COUNT(AUTO) 2.89 MIL/uL (4.5-6.0); WHITE BLOOD COUNT (AUTO) 7.5 K/uL (4.3-11.0)
[2022-03-01 08:19] LABS: ALBUMIN 2.9 g/dL (3.4-5.0); BILIRUBIN,DIRECT 0.1 mg/dL (0.0-0.2); BILIRUBIN,TOTAL 0.2 mg/dL (0.2-1.0); TOTAL PROTEIN, SERUM 8.1 g/dL (6.4-8.2)
[2022-03-01] MEDS: AMLODIPINE BESYLATE 10 MG TABLET GT SCH (08:33)
[2022-03-01] MEDS: PANTOPRAZOLE 40 MG VIAL IV SCH (08:33)
[2022-03-01] MEDS: ASPIRIN 81 MG TAB.CHEW GT SCH (08:34)
[2022-03-01] MEDS: CARVEDILOL 3.125 MG TABLET GT SCH ×2 (08:34→16:32)
[2022-03-01] MEDS: ALLOPURINOL 100 MG TABLET GT SCH (08:34)
[2022-03-01] MEDS: MEROPENEM 500 MG in IV NS 0.9% 50 ML IV SCH ×2 (08:35→19:32)
[2022-03-01] MEDS: HEPARIN SODIUM, PORCINE 5000 UNITS/1 ML VIAL SQ SCH ×2 (08:37→21:27)
[2022-03-01 11:56] LABS: CALCIUM, SERUM 9.2 mg/dL (8.5-10.1); POTASSIUM 5.5 mmol/L (3.5-5.1)
[2022-03-01 12:03] LABS: ALBUMIN 2.8 g/dL (3.4-5.0); BILIRUBIN,TOTAL 0.2 mg/dL (0.2-1.0)
[2022-03-01] MEDS ORDERED: DEXTROSE 50%-WATER 50 ML DISP.SYRIN IVP ONE (14:00)
[2022-03-01] MEDS ORDERED: INSULIN REGULAR, HUMAN 100 UNIT/ML 3 ML VIAL IV ONE (14:00)
[2022-03-01 15:57] VITALS: BP 135/82
--- NOTE | 2022-03-01 18:33 | NUR ---
RN Closing Note Patient responds to name, not able to express his concerns. Will endorse report to night nurse for continuity of care. Patient remained safe and stable throughout shift. Per physicians orders administered insulin and dextrosed to lower K+. Patient monitored and glucose is stable. All safety precautions taken, will endorse to night nurse for continuity of care. All safety precautions taken, call light and table within reach, bed at lowest position.
--- NOTE | 2022-03-01 19:05 | NUR ---
DIESEL LOCOMOTIVE CRANE OPERATOR OPENING NOTES PATIENT IS IN BED SLEEPING. PATIENT IS NON-VERBAL. EASILY BEING AROUSED BY TOUCHING. IV ACCESS IS AT HIS RIGHT WRIST, #22G, PATENT AND INTACT. G-TUBE IS RUNNING JEVITY 1.2 @40 ML/HR. NO RESIDUAL. TOLERATED WELL. PATIENT IS ON 2 LPM OXYGEN VIA NC, NO S/S DISTRESS OR SOB. SAFETY MEASURES IN PLACE: BED IN LOW POSITION, LOCKED,; CALL LIGHT IS IN REACH; BED ALARM IS ON, SIDE RAILS UP X 3. WILL CONTINUE WATCHING THE PATIENT'S CONDITION AND PROVIDE CARE FOR HIS NEEDS.
[2022-03-01 20:00] VITALS: BP 126/82
[2022-03-01] MEDS: VANCOMYCIN 500 MG in IV D5W 100 ML IV SCH (20:16)
[2022-03-01] MEDS: ATORVASTATIN 10 MG TABLET GT SCH (21:27)
[2022-03-02] VITALS: BP 136/87
[2022-03-02] MEDS: BLOOD SUGAR DIAGNOSTIC 1 EACH STRIP IN SCH ×5 (00:06→23:46)
[2022-03-02] MEDS: JEVITY 1.2 CAL 1,000 ML BOTTLE GT PRN (01:55)
[2022-03-02 04:00] VITALS: BP 139/92
--- NOTE | 2022-03-02 06:00 | NUR ---
COMMUTER PILOT NOTE PATIENT'S HR IS AROUND 110S - 120S. CHECKED THE PATIENT AND VITAL SIGNS WERE TAKEN. TEMP: 102.8 F, AXILLARY; BP: 139/94; HR: 127. PATIENT IS HAVING FEVER. NOTIFIED CHARGE NURSEHERBERT, THAT THE PATIENT IS HAVING FEVER. TYLENOL 650 MG GIVEN TO THE PATIENT THROUGH G-TUB. THREE ICE PACK PROVIDE TO THE PATIENT, TWO OF THE ICE PACK WAS PUT UNDER EACH ARMPIT, ANOTHER ONE IS PUT ON HIS CHEST. BS: 91. PATIENT IS STABLE. CHARGE NURSEHERBERT, NOTIFIED. WILL CONTINUE MONITOR PATIENT'S CONDITION.
[2022-03-02] MEDS: ACETAMINOPHEN 325 MG TABLET MC PRN ×2 (06:06→21:17)
--- NOTE | 2022-03-02 07:45 | NUR ---
COOK 3 PASTRY CLOSING NOTE CHANGE SHIFT REPORT GIVEN TO DAY SHIFT RN. PATIENT IS STAY IN BED, WITH 2 LPM OF OXYGEN. NO S/S OF SOB OR DISTRESS. TUBE FEEDING HAS BEEN RUNNING AT 40 ML/HOUR THROUGHOUT THE SHIFT. ZERO RESIDUE. TOLERATED WELL. SL IS ON HIS RIGHT HAND, PATENT AND INTACT. ENDORSE THE DAY SHIFT NURSE TO PROVIDE CONTINUE PATIENT CARE AND MONITOR PATIENT'S BODY TEMPERATURE CLOSELY.
[2022-03-02 07:52] LABS: ALBUMIN 2.9 g/dL (3.4-5.0); BILIRUBIN,TOTAL 0.3 mg/dL (0.2-1.0); CALCIUM, SERUM 9.3 mg/dL (8.5-10.1); POTASSIUM 4.9 mmol/L (3.5-5.1)
[2022-03-02 07:54] LABS: BASOPHILS # (AUTO) 0.2 K/uL (0.0-0.2); BASOPHILS % (AUTO) 2.5 % (0.0-2.0); EOSINOPHILS % (AUTO) 0.4 % (0.0-6.0); HEMATOCRIT 27 % (39-51); HEMOGLOBIN 8.6 g/dL (13.5-17.5); LYMPHOCYTES # (AUTO) 1.3 K/uL (0.8-4.8); LYMPHOCYTES % (AUTO) 16.4 % (20.0-44.0); MEAN CORPUSCULAR HGB CONC 33 g/dl (31.0-36.0); MEAN CORPUSCULAR VOLUME 92 fL (80-96); MONOCYTES # (AUTO) 0.7 K/uL (0.1-1.30); MONOCYTES % (AUTO) 8.6 % (2.0-12.0); NEUTROPHILS # (AUTO) 5.7 K/uL (1.8-8.9); NEUTROPHILS % (AUTO) 72.1 % (43.0-81.0); PLATELET COUNT (AUTO) 619 K/uL (150-450); RED BLOOD CELL COUNT(AUTO) 2.89 MIL/uL (4.5-6.0)
[2022-03-02] MEDS: MEROPENEM 500 MG in IV NS 0.9% 50 ML IV SCH ×2 (07:57→20:06)
[2022-03-02 08:00] VITALS: BP 126/88
[2022-03-02] MEDS: HEPARIN SODIUM, PORCINE 5000 UNITS/1 ML VIAL SQ SCH ×2 (09:53→21:20)
[2022-03-02] MEDS: PANTOPRAZOLE 40 MG/PACK PACK GT SCH (09:54)
[2022-03-02] MEDS: AMLODIPINE BESYLATE 10 MG TABLET GT SCH (09:54)
[2022-03-02] MEDS: ASPIRIN 81 MG TAB.CHEW GT SCH (09:55)
[2022-03-02] MEDS: ALLOPURINOL 100 MG TABLET GT SCH (09:55)
[2022-03-02] MEDS: CARVEDILOL 3.125 MG TABLET GT SCH ×2 (09:55→16:42)
[2022-03-02 12:00] VITALS: BP 134/86
[2022-03-02 16:00] VITALS: BP 128/89
--- NOTE | 2022-03-02 18:32 | NUR ---
New Azevedo Insertion Inserted new Azevedo as ordered by physician. Followed instructions and included sterile technique. 650 ml urine output in old Azevedo. Will monitor for urine output.
--- NOTE | 2022-03-02 18:34 | NUR ---
RN Closing Note Patient responds to name, not able to express his concerns. Will endorse report to night nurse for continuity of care. Patient remained safe and stable throughout shift. Per physicians orders changed urine koo cath., urine output is under 50ml. Monitored throughout shift and administered medications as ordered. All safety precautions taken, will endorse to night nurse for continuity of care. All safety precautions taken, call light and table within reach, bed at lowest position.
[2022-03-02 20:00] VITALS: BP 144/80
--- NOTE | 2022-03-02 20:00 | NUR ---
AIRPLANE REFUELER OPENING NOTES RECEIVED PATIENT IS IN BED SLEEPING. PATIENT IS NON-VERBAL. EASILY BEING AROUSED BY TOUCHING. IV ACCESS IS AT HIS RIGHT WRIST, #22G, PATENT AND INTACT. G-TUBE IS RUNNING JEVITY 1.2 @40 ML/HR. NO RESIDUAL. TOLERATED WELL. PATIENT IS ON 2 LPM OXYGEN VIA NC, NO S/S DISTRESS OR SOB. SAFETY MEASURES IN PLACE: BED IN LOW POSITION, LOCKED,; CALL LIGHT IS IN REACH; BED ALARM IS ON, SIDE RAILS UP X 3. WILL CONTINUE WATCHING THE PATIENT'S CONDITION AND PROVIDE CARE FOR HIS NEEDS.
[2022-03-02] MEDS: ATORVASTATIN 10 MG TABLET GT SCH (21:13)
--- NOTE | 2022-03-02 22:00 | NUR ---
PATIENT HAS FEVER 103.8. GIVEN SPONGE BATH AND ICE PACK PLACED ON AXILLA AND GROIN AREA. MINIMAL DRAPES. KEPT COMFORTABLE. WILL CONTINUE TO MONITOR. Addendum: 03/03/22 at 0123 by CORA CAMPBELL RN GIVEN TYLENOL 650MG TABLET PRN FOR FEVER VIA G-TUBE.
--- NOTE | 2022-03-03 01:43 | NUR ---
RN NOTES TEMPERATURE TAKEN ORALLY, 97 F. NO FEVER. KEPT COMFORTABLE.
[2022-03-03] MEDS: BLOOD SUGAR DIAGNOSTIC 1 EACH STRIP IN SCH ×3 (06:05→18:12)
[2022-03-03] MEDS ORDERED: DOSE PER PHARMACY MICAFUNGIN 1 EA XX PRN (07:00)
[2022-03-03 07:08] LABS: BASOPHILS # (AUTO) 0.2 K/uL (0.0-0.2); BASOPHILS % (AUTO) 2.2 % (0.0-2.0); EOSINOPHILS % (AUTO) 0.3 % (0.0-6.0); HEMATOCRIT 27 % (39-51); HEMOGLOBIN 8.7 g/dL (13.5-17.5); LYMPHOCYTES # (AUTO) 1.5 K/uL (0.8-4.8); LYMPHOCYTES % (AUTO) 17.5 % (20.0-44.0); MEAN CORPUSCULAR HGB CONC 32 g/dl (31.0-36.0); MEAN CORPUSCULAR VOLUME 94 fL (80-96); MONOCYTES # (AUTO) 0.7 K/uL (0.1-1.30); MONOCYTES % (AUTO) 8.3 % (2.0-12.0); NEUTROPHILS # (AUTO) 6.1 K/uL (1.8-8.9); NEUTROPHILS % (AUTO) 71.7 % (43.0-81.0); PLATELET COUNT (AUTO) 586 K/uL (150-450); WHITE BLOOD COUNT (AUTO) 8.6 K/uL (4.3-11.0)
--- NOTE | 2022-03-03 07:30 | NUR ---
INSTANTIZER OPERATOR OPENING NOTE RECEIVED PATIENT IN BED AWAKE, NON VERBAL. NO S/S OF SOB OR DISTRESS NOTED. ON GTUBE FEEDING OF JEVITY 1.2 AT RUNNING AT 40 ML/HOUR . PLACEMENT CHECKED.INTACT. NO RESIDUAL NOTED. TOLERATED WELL. IV ACCESS ON RIGHT WRIST #24 PATENT AND INTACT.ALL NEEDS ATTENDED. ALL SAFETY MEASURES IN PLACE. BED LOCKED IN THE LOWEST POSITION. CALL LIGHT AND TABLE IN EASY REACH. HOB ELEVATED FOR ASPIRATION PRECAUTION. WILL CONTINUE TO MONITOR CLOSELY.
[2022-03-03 07:34] LABS: ALBUMIN 3.1 g/dL (3.4-5.0); BILIRUBIN,TOTAL 0.3 mg/dL (0.2-1.0); CALCIUM, SERUM 9.7 mg/dL (8.5-10.1); CREATININE 3.2 mg/dL (0.6-1.3); POTASSIUM 5.1 mmol/L (3.5-5.1); TOTAL PROTEIN, SERUM 8.3 g/dL (6.4-8.2)
--- NOTE | 2022-03-03 07:56 | NUR ---
SENIOR CLINICAL RESEARCH SCIENTIST CLOSING NOTE PATIENT IS LYING AWAKE IN BED. A/O X1, NON VERBAL. BREATHING ROOM AIR, EVEN AND UNLABORED WITH NO S/S OF SOB OR DISTRESS. G-TUBE FEEDING RUNNING AT 40 ML/HOUR THROUGHOUT THE SHIFT. ZERO RESIDUE. TOLERATED WELL. IV ACCESS AT RIGHT WRIST #24 SALINE LOCK, PATENT AND INTACT. ENDORSE TO DAY SHIFT NURSE FOR JIMY.
[2022-03-03] MEDS: MEROPENEM 500 MG in IV NS 0.9% 50 ML IV SCH ×2 (08:24→20:39)
[2022-03-03] MEDS: ASPIRIN 81 MG TAB.CHEW GT SCH (08:33)
[2022-03-03] MEDS: PANTOPRAZOLE 40 MG/PACK PACK GT SCH (08:33)
[2022-03-03] MEDS: ALLOPURINOL 100 MG TABLET GT SCH (08:34)
[2022-03-03] MEDS: CARVEDILOL 3.125 MG TABLET GT SCH ×2 (08:34→16:30)
[2022-03-03] MEDS: AMLODIPINE BESYLATE 10 MG TABLET GT SCH (08:34)
[2022-03-03] MEDS: HEPARIN SODIUM, PORCINE 5000 UNITS/1 ML VIAL SQ SCH ×2 (08:41→21:22)
[2022-03-03 09:57] VITALS: BP 134/91
[2022-03-03] MEDS: MICAFUNGIN SODIUM 100 MG in IV NS 0.9% 100 ML IV SCH (10:27)
[2022-03-03] MEDS ORDERED: IV 1/2NS 1000 ML 1,000 ML IV ONE (14:00)
[2022-03-03] MEDS: NEPRO 1,000 ML BOTTLE GT SCH (15:17)
[2022-03-03] MEDS: ACETAMINOPHEN 325 MG TABLET MC PRN (16:29)
[2022-03-03] MEDS: INSULIN REGULAR, HUMAN 100 UNIT/ML 3 ML VIAL SQ PRN (18:32)
--- NOTE | 2022-03-03 19:15 | NUR ---
RN OPENING: RECEIVED AWAKE ON BED, ON SEMI FOWLERS POSITION, CONTACT PRECAUTION OBSERVED, A/OX1 TO SELF ONLY, NON VERBAL,ON ROOM AIR, ON TELE MONITOR SINUS RHYTHM 85, INCONTINENT/CONTINENT B/B, ON GOFF CATH DRAINING INTO DARK YELLOWISH COLORED URINE, SLIGHTLY CLOUDY, IV CANNULA RW G#24 WITH IVF 1/2 NS AT 75 ML/HR, G-TUBE IN SITE WITH FEEDING OF NEPHRO 1.8 AT 50 ML/HR STARTED AT 1518 THIS AFTERNOON, NPO ,ASPIRATION PRECAUTION OBSERVED. K AND NA RESULTS NEPHRO WAS AWARE, EKG WAS DONE IN MORNING,PER ENDORSEMENT. NON LABORED BREATHING, NO FACIAL GRIMACE, ORIENTED TO UNIT AND STAFF, KEPT CALL LIGHT WITHIN EASY REACH.
--- NOTE | 2022-03-03 19:30 | NUR ---
SELF PAY SPECIALIST CLOSING NOTE PATIENT IN BED AWAKE, NON VERBAL. NO S/S OF SOB OR DISTRESS NOTED. ON GTUBE FEEDING OF NEPRO 1.8 AT 50 ML/HR. PLACEMENT CHECKED.INTACT. NO RESIDUAL NOTED. TOLERATED WELL. IV ACCESS ON RIGHT WRIST #24 PATENT AND INTACT.RUNNING 1/2 NS AT 75 ML/HR. ORDER WAS OBTAIND FROM DR DOMINGUEZ FOR POTASSIUM AND SODIUM ELEVATION AND BEING TACHYCARDIC. ALL DUE MEDS GIVEN ORDERED.ALL NEEDS ATTENDED. ALL SAFETY MEASURES IN PLACE. BED LOCKED IN THE LOWEST POSITION. CALL LIGHT AND TABLE IN EASY REACH. HOB ELEVATED FOR ASPIRATION PRECAUTION. WILL ENDORSE FOR JIMY.
[2022-03-03 20:00] VITALS: BP 115/76
[2022-03-03] MEDS: ATORVASTATIN 10 MG TABLET GT SCH (21:23)
[2022-03-04] VITALS: BP 111/81
[2022-03-04] MEDS: BLOOD SUGAR DIAGNOSTIC 1 EACH STRIP IN SCH ×4 (00:45→17:13)
--- NOTE | 2022-03-04 00:45 | NUR ---
RN NOTES: TURNING AND REPOSITIONING DONE, BLOOD SUGAR CHECK-84, NO INSULIN PER SCALE.
[2022-03-04 04:00] VITALS: BP 123/81
--- NOTE | 2022-03-04 05:31 | NUR ---
RN NOTES: BLOOD SUGAR CHECKED-92, MORNING CARE DONE, CLEAN, CHANGE AND REPOSITIONED.
[2022-03-04 06:45] LABS: BASOPHILS # (AUTO) 0.2 K/uL (0.0-0.2); BASOPHILS % (AUTO) 1.7 % (0.0-2.0); EOSINOPHILS % (AUTO) 0.3 % (0.0-6.0); HEMATOCRIT 26 % (39-51); HEMOGLOBIN 8.2 g/dL (13.5-17.5); LYMPHOCYTES # (AUTO) 1.6 K/uL (0.8-4.8); LYMPHOCYTES % (AUTO) 16.7 % (20.0-44.0); MEAN CORPUSCULAR HGB CONC 32 g/dl (31.0-36.0); MEAN CORPUSCULAR VOLUME 94 fL (80-96); MONOCYTES # (AUTO) 0.7 K/uL (0.1-1.30); MONOCYTES % (AUTO) 7.4 % (2.0-12.0); NEUTROPHILS % (AUTO) 73.9 % (43.0-81.0); PLATELET COUNT (AUTO) 468 K/uL (150-450); RED BLOOD CELL COUNT(AUTO) 2.73 MIL/uL (4.5-6.0); WHITE BLOOD COUNT (AUTO) 9.5 K/uL (4.3-11.0)
--- NOTE | 2022-03-04 06:45 | NUR ---
RN NOTES: AWAKE MOST OF THE TIME, WATCHING TV, G-TUBE FEEDING IS ONGOING NEPHRO 1.8 AT 50 ML/HR, IVF STILL ONGOING, REPOSITIONED,BLOOD TEST DONE IN THE MORNING, ASPIRATION PRECAUTION OBSERVED, TO F/U CXR, IV/ATB GIVEN ORDERED, NO RESPIRATORY DISTRESS, ENDORSED FOR CONTINUITY OF CARE.
[2022-03-04 07:07] LABS: ALBUMIN 2.8 g/dL (3.4-5.0); BILIRUBIN,TOTAL 0.2 mg/dL (0.2-1.0); CALCIUM, SERUM 9.4 mg/dL (8.5-10.1); CREATININE 3.1 mg/dL (0.6-1.3); POTASSIUM 4.7 mmol/L (3.5-5.1); TOTAL PROTEIN, SERUM 7.7 g/dL (6.4-8.2)
--- NOTE | 2022-03-04 07:25 | NUR ---
LONG LINE TEAMSTER OPENING: RECEIVED AWAKE ON BED, NO VERBAL , ON SEMI FOWLERS POSITION, CONTACT PRECAUTION OBSERVED, A/OX1 TO SELF ONLY, NON VERBAL,ON ROOM AIR, ON TELE MONITOR SINUS RHYTHM 82, INCONTINENT/CONTINENT B/B, ON GOFF CATH DRAINING WITH CLEAR YELLOW COLORED , IV CANNULA RW G#24 WITH IVF 1/2 NS AT 75 ML/HR, G-TUBE IN SITE WITH FEEDING OF NEPHRO 1.8 AT 50 ML/HR ,ASPIRATION PRECAUTION OBSERVED. NON LABORED BREATHING, NO FACIAL GRIMACE, SAFETY PRECAUTIONS , SR UP X 21 , BED IN LOWEST POSITION , WILL CONTINUE TO MONITOR
[2022-03-04 08:00] VITALS: BP 125/81
[2022-03-04] MEDS: MEROPENEM 500 MG in IV NS 0.9% 50 ML IV SCH ×2 (08:31→20:20)
[2022-03-04] MEDS: AMLODIPINE BESYLATE 10 MG TABLET GT SCH (09:17)
[2022-03-04] MEDS: PANTOPRAZOLE 40 MG/PACK PACK GT SCH (09:17)
[2022-03-04] MEDS: CARVEDILOL 3.125 MG TABLET GT SCH ×2 (09:18→17:11)
[2022-03-04] MEDS: ALLOPURINOL 100 MG TABLET GT SCH (09:18)
[2022-03-04] MEDS: ASPIRIN 81 MG TAB.CHEW GT SCH (09:19)
[2022-03-04] MEDS: HEPARIN SODIUM, PORCINE 5000 UNITS/1 ML VIAL SQ SCH ×2 (09:20→21:09)
[2022-03-04] MEDS: MICAFUNGIN SODIUM 100 MG in IV NS 0.9% 100 ML IV SCH (09:22)
[2022-03-04 12:00] VITALS: BP 132/82
[2022-03-04] MEDS: INSULIN REGULAR, HUMAN 100 UNIT/ML 3 ML VIAL SQ PRN (13:29)
[2022-03-04 16:00] VITALS: BP 122/74
[2022-03-04] MEDS: NEPRO 1,000 ML BOTTLE GT SCH (17:59)
--- NOTE | 2022-03-04 18:31 | NUR ---
MERCHANDISE BUYER CLOSING NOTES : PATIENT AWAKE ON BED, NON VERBAL , ON SEMI FOWLERS POSITION, CONTACT PRECAUTION OBSERVED, A/OX1 TO SELF ONLY, ,ON ROOM AIR, ON TELE MONITOR SINUS RHYTHM 87, INCONTINENT/CONTINENT B/B, ON GOFF CATH DRAINING WITH CLEAR YELLOW COLORED , IV CANNULA RW G#24 SL , ALL DUE MEDS ORDERED , SEEN BY ID WITH NEW ORDER , G-TUBE IN SITE WITH FEEDING OF NEPHRO 1.8 AT 50 ML/HR ,ASPIRATION PRECAUTION OBSERVED. NON LABORED BREATHING, NO FACIAL GRIMACE, SAFETY PRECAUTIONS , SR UP X 21 , BED IN LOWEST POSITION , ENDORSED TO NEXT SHIFT
--- NOTE | 2022-03-04 19:30 | NUR ---
noc rn opening received patient in bed, with eyes closed, easy to arouse. patient no s/s of apparent distress on room air. not exhibiting pain via flacc. patient contracted. tele monitor reading sr with 87 bpm. GTF running Nepro @50 mls/hr. IV antibiotic just finished running at this time. call light within reach. safety in place. will continue with the plan of care for patient.
[2022-03-04 20:00] VITALS: BP 107/68
[2022-03-04] MEDS: ATORVASTATIN 10 MG TABLET GT SCH (22:06)
[2022-03-05] VITALS: BP 114/72
[2022-03-05] MEDS: BLOOD SUGAR DIAGNOSTIC 1 EACH STRIP IN SCH ×4 (00:04→17:32)
[2022-03-05] MEDS: INSULIN REGULAR, HUMAN 100 UNIT/ML 3 ML VIAL SQ PRN ×2 (00:29→06:13)
[2022-03-05] MEDS: ACETAMINOPHEN 325 MG TABLET MC PRN ×2 (04:24→16:35)
--- NOTE | 2022-03-05 04:24 | NUR ---
noc rn note low grade fever of 99.9. given tylenol PRN as ordered. cooling measures in place.
[2022-03-05 05:00] VITALS: BP 139/83
[2022-03-05 07:07] LABS: BASOPHILS # (AUTO) 0.1 K/uL (0.0-0.2); EOSINOPHILS % (AUTO) 0.6 % (0.0-6.0); HEMATOCRIT 25 % (39-51); HEMOGLOBIN 8.3 g/dL (13.5-17.5); LYMPHOCYTES # (AUTO) 1.4 K/uL (0.8-4.8); LYMPHOCYTES % (AUTO) 18.5 % (20.0-44.0); MEAN CORPUSCULAR HGB CONC 33 g/dl (31.0-36.0); MEAN CORPUSCULAR VOLUME 93 fL (80-96); MONOCYTES # (AUTO) 0.5 K/uL (0.1-1.30); MONOCYTES % (AUTO) 7.3 % (2.0-12.0); NEUTROPHILS # (AUTO) 5.3 K/uL (1.8-8.9); NEUTROPHILS % (AUTO) 71.6 % (43.0-81.0); PLATELET COUNT (AUTO) 369 K/uL (150-450); RED BLOOD CELL COUNT(AUTO) 2.71 MIL/uL (4.5-6.0); WHITE BLOOD COUNT (AUTO) 7.4 K/uL (4.3-11.0)
--- NOTE | 2022-03-05 07:41 | NUR ---
NOC RN CLOSING NOTE NEEDS ATTENDED. REPORT GIVEN TO TOÑO LAL FOR CONTINUITY OF PATIENT CARE.
--- NOTE | 2022-03-05 08:01 | NUR ---
BACK JOINER OPENING NOTE Patietn in bed, asleep. A/O x 1. On room air, breathing evenly and unlabored. Iv access on Right wrist #24 SL, intact and patent. Azevedo catheter in place draining to a yellow colored urine. G-tube in place running Nepro at 50 ml/hr. On tele monitoring showing SR, HR 84. Patient remains on contact isolation. Safety precautions in place: be din low, locked position; siderails up x 2; call light within reach. Will continue to monitor.
[2022-03-05 08:18] VITALS: BP 135/90
[2022-03-05] MEDS: MEROPENEM 500 MG in IV NS 0.9% 50 ML IV SCH (08:28)
[2022-03-05 08:52] LABS: ALANINE AMINOTRANSFERASE 391 U/L (12-78); ALBUMIN 2.8 g/dL (3.4-5.0); ALKALINE PHOSPHATASE 161 U/L (46-116); ASPARTATE AMINOTRANSFERASE 526 U/L (15-37); BILIRUBIN,TOTAL 0.2 mg/dL (0.2-1.0); CALCIUM, SERUM 9.6 mg/dL (8.5-10.1); CARBON DIOXIDE 22 mmol/L (21-32); CREATININE 2.9 mg/dL (0.6-1.3); GLUCOSE 110 mg/dL (74-106); POTASSIUM 4.4 mmol/L (3.5-5.1); SODIUM SERUM 155 mmol/L (136-145); TOTAL PROTEIN, SERUM 7.4 g/dL (6.4-8.2); UREA NITROGEN, BLOOD 71 mg/dL (7-18)
[2022-03-05] MEDS: CARVEDILOL 3.125 MG TABLET GT SCH ×2 (09:02→16:17)
[2022-03-05] MEDS: ALLOPURINOL 100 MG TABLET GT SCH (09:02)
[2022-03-05] MEDS: ASPIRIN 81 MG TAB.CHEW GT SCH (09:02)
[2022-03-05] MEDS: PANTOPRAZOLE 40 MG/PACK PACK GT SCH (09:02)
[2022-03-05] MEDS: AMLODIPINE BESYLATE 10 MG TABLET GT SCH (09:03)
[2022-03-05] MEDS: HEPARIN SODIUM, PORCINE 5000 UNITS/1 ML VIAL SQ SCH ×2 (09:04→21:15)
[2022-03-05 10:42] LABS: BILIRUBIN,DIRECT 0.1 mg/dL (0.0-0.2); BILIRUBIN,TOTAL 0.2 mg/dL (0.2-1.0)
[2022-03-05 12:12] VITALS: BP 115/68
--- NOTE | 2022-03-05 14:00 | NUR ---
RN NOTE DTI noted on patient's Right foot, great toe and 2nd toe. Area feels warm to touch, pulse present. Photos taken and placed in chart. Wound care consult requested.
[2022-03-05] MEDS: IV D5W 1,000 ML IV SCH (14:38)
[2022-03-05 16:01] VITALS: BP 129/52
--- NOTE | 2022-03-05 18:48 | NUR ---
LEAD PASTOR CLOSING NOTE Patient in bed, resting. A/O x 1. On room air, breathing evenly and unlabored. IV access on Right wrist #24 infusing D5W at 75 ml/hr. Azevedo catheter in place draining to a yellow colored urine with an output of 600 cc. G-tube in place running Nepro at 50 ml/hr. On tele monitoring showing SR, HR 92. Patient remains on contact isolation. Kept clean and dry. Due meds given. Turned and repositioned, as tolerated. Safety precautions in place: be din low, locked position; siderails up x 2; call light within reach. Will endorse to hotel night auditor nurse for JIMY.
--- NOTE | 2022-03-05 19:30 | NUR ---
noc rn opening received patient in bed, with eyes closed, easy to arouse. patient no s/s of apparent distress on room air. not exhibiting pain via flacc. patient contracted. tele monitor reading sr with 95 bpm. GTF running Nepro @50 mls/hr. IV D5W running @75mls/hr. call light within reach. safety in place. will continue with the plan of care for patient.
[2022-03-05 20:00] VITALS: BP 126/79
[2022-03-06] VITALS: BP 128/79
[2022-03-06] MEDS: BLOOD SUGAR DIAGNOSTIC 1 EACH STRIP IN SCH ×5 (00:25→23:43)
[2022-03-06] MEDS: INSULIN REGULAR, HUMAN 100 UNIT/ML 3 ML VIAL SQ PRN ×3 (00:26→23:43)
[2022-03-06 04:00] VITALS: BP 119/73
[2022-03-06] MEDS: ACETAMINOPHEN 325 MG TABLET MC PRN (04:54)
--- NOTE | 2022-03-06 04:55 | NUR ---
noc rn note given tylenol at this time for pain.
[2022-03-06] MEDS: IV D5W 1,000 ML IV SCH ×2 (04:58→17:59)
--- NOTE | 2022-03-06 06:29 | NUR ---
noc rn note patient G tube got ripped while rn trying to pull Pilo valve. Made Charge nurse Martina aware. Per Charge will call GI this am. G-tube remains intact in the stoma. D5W running at this time.
[2022-03-06 07:08] LABS: CALCIUM, SERUM 9.2 mg/dL (8.5-10.1); CREATININE 2.5 mg/dL (0.6-1.3); POTASSIUM 4.5 mmol/L (3.5-5.1)
--- NOTE | 2022-03-06 07:30 | NUR ---
RN Receiving Report. Not able to assess patients mental status. Pt sleeping not easily aroused. IV with no signs of infiltration. Patient looks comfortable and clean, no signs of distress or discomfort. All safety precautions taken, call light and table within reach, bed at lowest position.
[2022-03-06 07:34] LABS: BASOPHILS # (AUTO) 0.2 K/uL (0.0-0.2); BASOPHILS % (AUTO) 1.8 % (0.0-2.0); EOSINOPHILS % (AUTO) 0.8 % (0.0-6.0); HEMATOCRIT 25 % (39-51); HEMOGLOBIN 8.4 g/dL (13.5-17.5); LYMPHOCYTES # (AUTO) 1.3 K/uL (0.8-4.8); LYMPHOCYTES % (AUTO) 15.5 % (20.0-44.0); MEAN CORPUSCULAR HGB CONC 33 g/dl (31.0-36.0); MEAN CORPUSCULAR VOLUME 93 fL (80-96); MONOCYTES # (AUTO) 0.6 K/uL (0.1-1.30); MONOCYTES % (AUTO) 7.7 % (2.0-12.0); NEUTROPHILS # (AUTO) 6.3 K/uL (1.8-8.9); NEUTROPHILS % (AUTO) 74.2 % (43.0-81.0); PLATELET COUNT (AUTO) 335 K/uL (150-450); RED BLOOD CELL COUNT(AUTO) 2.71 MIL/uL (4.5-6.0); WHITE BLOOD COUNT (AUTO) 8.4 K/uL (4.3-11.0)
[2022-03-06 08:00] VITALS: BP 121/81
[2022-03-06 08:09] LABS: ALBUMIN 2.8 g/dL (3.4-5.0); BILIRUBIN,TOTAL 0.2 mg/dL (0.2-1.0); TOTAL PROTEIN, SERUM 7.5 g/dL (6.4-8.2)
--- NOTE | 2022-03-06 08:13 | NUR ---
Non Admin Meds Not able to administer GTube meds, Gtube not available at the moment. Per night nurse, and charge nurse were made aware
[2022-03-06] MEDS: AMLODIPINE BESYLATE 10 MG TABLET GT SCH (09:00)
[2022-03-06] MEDS: ASPIRIN 81 MG TAB.CHEW GT SCH (09:00)
[2022-03-06] MEDS: PANTOPRAZOLE 40 MG/PACK PACK GT SCH (09:00)
[2022-03-06] MEDS: CARVEDILOL 3.125 MG TABLET GT SCH ×2 (09:00→17:00)
[2022-03-06] MEDS: ALLOPURINOL 100 MG TABLET GT SCH (09:00)
[2022-03-06] MEDS: HEPARIN SODIUM, PORCINE 5000 UNITS/1 ML VIAL SQ SCH (09:11)
--- NOTE | 2022-03-06 09:33 | NUR ---
WOUND CARE CONSULT: PT PRESENTS CACHECTIC WITH SACRAL SCARRING, INCONTINENCE ASSOCIATED SKIN DAMAGE OVER SCARRING, MULTIPLE AREAS OF SCARRING AND SKIN DISCOLORATION WELL OPEN AREAS TO RT GREAT TOE AND 2ND TOE. PT NOTED TO BE MOVING HIS FEET IN THE BED AND ALSO NOTED TO HAVE SEVERE LOWER EXTREMITY CONTRACTURES. DPM CONSULT CALLED TO DR BROWN. RECOMMENDATIONS MADE FOR SKIN PROTECTION. DISCUSSED WITH NURSING STAFF. IN AGREEMENT WITH PLAN OF CARE. Addendum: 03/06/22 at 0943 by DONNA ALONZO WNDNU FIRST STEP LOW AIRLOSS MATTRESS ORDERED.
[2022-03-06 16:00] VITALS: BP 113/76
--- NOTE | 2022-03-06 18:38 | NUR ---
RN Closing Note Patient responds to name, not able to express his concerns. Will endorse report to night nurse for continuity of care. Patient remained safe and stable throughout shift. Monitored throughout shift and administered medications as ordered. All safety precautions taken, will endorse to night nurse for continuity of care. All safety precautions taken, call light and table within reach, bed at lowest position.
[2022-03-06 20:00] VITALS: BP 123/79
--- NOTE | 2022-03-06 20:18 | NUR ---
CHIEF FISHERY DIVISION OPENING NOTE PATIENT AWAKE IN BED, ALERT TO NAME. PT STABLE ON RA, NO S/S OF DISTRESS OR SOB NOTED, BREATHING EVEN AND UNLABORED. PATIENT ON EXTERNAL VELOCITY SHOOTER READING SINUS RHYTHM, HR: 85. IV ACCESS ON RIGHT WRIST #24G INTACT AND INFUSING D52 @ 75 ML/HR. PT GT FEEDING ON HOLD AWAITING GTUBE REPLACEMENT. SAFETY MEASURES IN PLACE: CALL LIGHT WITHIN REACH, SIDE RAILS UP X 3, BED LOCKED IN LOWEST POSITION, BED ALARM ON. WILL CONTINUE TO MONITOR PATIENT
[2022-03-07] VITALS: BP 130/83
[2022-03-07 04:00] VITALS: BP 132/78
[2022-03-07] MEDS: IV D5W 1,000 ML IV SCH (06:02)
[2022-03-07 06:18] LABS: BILIRUBIN,DIRECT 0.1 mg/dL (0.0-0.2); BILIRUBIN,TOTAL 0.4 mg/dL (0.2-1.0); TOTAL PROTEIN, SERUM 7.7 g/dL (6.4-8.2)
[2022-03-07 06:27] LABS: BASOPHILS # (AUTO) 0.1 K/uL (0.0-0.2); BASOPHILS % (AUTO) 1.9 % (0.0-2.0); HEMATOCRIT 25 % (39-51); HEMOGLOBIN 8.3 g/dL (13.5-17.5); LYMPHOCYTES # (AUTO) 1.3 K/uL (0.8-4.8); LYMPHOCYTES % (AUTO) 17.9 % (20.0-44.0); MEAN CORPUSCULAR HGB CONC 33 g/dl (31.0-36.0); MEAN CORPUSCULAR VOLUME 91 fL (80-96); MONOCYTES # (AUTO) 0.6 K/uL (0.1-1.30); MONOCYTES % (AUTO) 8.4 % (2.0-12.0); NEUTROPHILS # (AUTO) 5.2 K/uL (1.8-8.9); NEUTROPHILS % (AUTO) 70.8 % (43.0-81.0); PLATELET COUNT (AUTO) 332 K/uL (150-450); RED BLOOD CELL COUNT(AUTO) 2.74 MIL/uL (4.5-6.0); WHITE BLOOD COUNT (AUTO) 7.3 K/uL (4.3-11.0)
[2022-03-07] MEDS: INSULIN REGULAR, HUMAN 100 UNIT/ML 3 ML VIAL SQ PRN (06:48)
[2022-03-07] MEDS: BLOOD SUGAR DIAGNOSTIC 1 EACH STRIP IN SCH ×3 (06:48→17:53)
--- NOTE | 2022-03-07 06:53 | NUR ---
STAFFING MGR CLOSING NOTE PATIENT AWAKE IN BED, ALERT TO NAME. PT STABLE ON RA, NO S/S OF DISTRESS OR SOB NOTED, BREATHING EVEN AND UNLABORED. PATIENT ON EXTERNAL MILL WORK READING SINUS RHYTHM, HR:82. IV ACCESS ON RIGHT WRIST #24G LEAKING, ATTEMPTED TO INSERT NEW IV X 2, UNSUCCESSFUL. PT GT FEEDING ON HOLD AWAITING GTUBE REPLACEMENT, PATIENT KEPT NPO. NO SIGNIFICANT CHANGES THIS SHIFT, PT SLEPT WELL. PATIENT NEEDS MET THROUGHOUT SHIFT. SAFETY MEASURES IN PLACE: CALL LIGHT WITHIN REACH, SIDE RAILS UP X 3, BED LOCKED IN LOWEST POSITION, BED ALARM ON. WILL ENDORSE TO DAYSHIFT RN FOR CONTINUITY OF CARE
--- NOTE | 2022-03-07 07:45 | NUR ---
RN Opening Note. Patient AOx1, not able to assess patients status. Pt sleeping not easily aroused. IV with no signs of infiltration. Patient looks comfortable and clean, no signs of distress or discomfort. All safety precautions taken, call light and table within reach, bed at lowest position. Made patient aware of plan of care, he says "ok".
[2022-03-07 08:00] VITALS: BP 124/84
[2022-03-07 08:28] LABS: ALBUMIN 3.1 g/dL (3.4-5.0); BILIRUBIN,TOTAL 0.4 mg/dL (0.2-1.0); CALCIUM, SERUM 10.1 mg/dL (8.5-10.1); CREATININE 2.5 mg/dL (0.6-1.3); MAGNESIUM 2.4 mg/dL (1.8-2.4); PHOSPHORUS 3.5 mg/dL (2.5-4.9); POTASSIUM 4.4 mmol/L (3.5-5.1); TOTAL PROTEIN, SERUM 7.9 g/dL (6.4-8.2)
[2022-03-07] MEDS: ALLOPURINOL 100 MG TABLET GT SCH (09:00)
[2022-03-07] MEDS: PANTOPRAZOLE 40 MG/PACK PACK GT SCH (09:00)
[2022-03-07] MEDS: CARVEDILOL 3.125 MG TABLET GT SCH ×2 (09:00→17:00)
[2022-03-07] MEDS: ASPIRIN 81 MG TAB.CHEW GT SCH (09:00)
[2022-03-07] MEDS: AMLODIPINE BESYLATE 10 MG TABLET GT SCH (09:00)
[2022-03-07 16:14] VITALS: BP 116/79
--- NOTE | 2022-03-07 18:23 | NUR ---
RN Closing Note Patient responds to name, not able to express his concerns. Pending GTube placement and evaluation. Some medications were not administered due to G-Tube not available. Will endorse report to night nurse for continuity of care. Patient remained safe and stable throughout shift. Monitored throughout shift and administered medications as ordered. All safety precautions taken, will endorse to night nurse for continuity of care. All safety precautions taken, call light and table within reach, bed at lowest position.
[2022-03-07 20:00] VITALS: BP 129/95
--- NOTE | 2022-03-07 20:00 | NUR ---
MUFFLE WORKER OPENING NOTE PATIENT AWAKE IN BED, ALERT TO NAME. PT STABLE ON RA, NO S/S OF DISTRESS OR SOB NOTED, BREATHING EVEN AND UNLABORED. PATIENT ON EXTERNAL COMMERCIAL HORTICULTURE INSTRUCTOR READING SINUS RHYTHM, HR: 90. PATIENT STILL NPO, AWAITING G-TUBE REPLACEMENT. IV ACCESS ON LEFT FOREARM #22G INTACT AND SALINE LOCKED. GOFF CATHETER IN PLACE AND DRAINING YELLOW URINE. SAFETY MEASURES IN PLACE: CALL LIGHT WITHIN REACH, SIDE RAILS UP X 2, BED LOCKED IN LOWEST POSITION, BED ALARM ON, HOB ELEVATED. WILL CONTINUE TO MONITOR PATIENT
--- NOTE | 2022-03-07 20:14 | NUR ---
ELECTROPLATER AUTOMATIC NOTE PATIENT STILL AWAITING GTUBE REPLACEMENT, PATIENT NPO. IV FLUIDS DC'ED DURING DAYSHIFT AND PATIENT IS DIABETIC. CONTACTED SEWING MACHINE MECHANIC MD GWEN REYES REGARDING THIS, ORDER FOR D5 1/2 NS @ 75 ML/HR AND DC FLUIDS AFTER THAT. ORDER CONFIRMED AND CARRIED OUT
[2022-03-07] MEDS ORDERED: IV D5/0.45 NACL 1,000 ML IV ONE (20:30)
[2022-03-08] VITALS: BP 133/86
[2022-03-08] MEDS: BLOOD SUGAR DIAGNOSTIC 1 EACH STRIP IN SCH ×5 (00:17→23:43)
[2022-03-08] MEDS: INSULIN REGULAR, HUMAN 100 UNIT/ML 3 ML VIAL SQ PRN ×3 (00:17→23:43)
[2022-03-08 04:00] VITALS: BP 134/91
[2022-03-08 06:28] LABS: BASOPHILS # (AUTO) 0.1 K/uL (0.0-0.2); BASOPHILS % (AUTO) 1.1 % (0.0-2.0); EOSINOPHILS % (AUTO) 1.5 % (0.0-6.0); HEMATOCRIT 26 % (39-51); HEMOGLOBIN 8.5 g/dL (13.5-17.5); LYMPHOCYTES % (AUTO) 17.1 % (20.0-44.0); MEAN CORPUSCULAR HGB CONC 33 g/dl (31.0-36.0); MEAN CORPUSCULAR VOLUME 91 fL (80-96); MONOCYTES # (AUTO) 0.6 K/uL (0.1-1.30); MONOCYTES % (AUTO) 9.3 % (2.0-12.0); NEUTROPHILS # (AUTO) 4.3 K/uL (1.8-8.9); PLATELET COUNT (AUTO) 321 K/uL (150-450); RED BLOOD CELL COUNT(AUTO) 2.83 MIL/uL (4.5-6.0)
--- NOTE | 2022-03-08 06:57 | NUR ---
MANAGER IT TRAINING CLOSING NOTE PATIENT SLEEPING IN BED, ALERT TO NAME. PT STABLE ON RA, NO S/S OF DISTRESS OR SOB NOTED, BREATHING EVEN AND UNLABORED. PATIENT ON EXTERNAL WINDLASSER READING SINUS RHYTHM, HR:78. IV ACCESS ON LEFT FOREARM #22G INTACT. PT GT FEEDING ON HOLD AWAITING GTUBE REPLACEMENT, PATIENT KEPT NPO. CONSENT FOR GTUBE REPLACEMENT OBTAINED FROM VIA PHONE CONSENT. NO SIGNIFICANT CHANGES THIS SHIFT, PT SLEPT WELL. PATIENT NEEDS MET THROUGHOUT SHIFT. SAFETY MEASURES IN PLACE: CALL LIGHT WITHIN REACH, SIDE RAILS UP X 3, BED LOCKED IN LOWEST POSITION, BED ALARM ON. WILL ENDORSE TO DAYSHIFT RN FOR CONTINUITY OF CARE
[2022-03-08 07:09] LABS: BILIRUBIN,TOTAL 0.4 mg/dL (0.2-1.0); CALCIUM, SERUM 9.4 mg/dL (8.5-10.1); CREATININE 2.3 mg/dL (0.6-1.3); MAGNESIUM 2.2 mg/dL (1.8-2.4); PHOSPHORUS 4.1 mg/dL (2.5-4.9); POTASSIUM 4.1 mmol/L (3.5-5.1); TOTAL PROTEIN, SERUM 7.6 g/dL (6.4-8.2)
[2022-03-08 07:17] LABS: BILIRUBIN,DIRECT 0.1 mg/dL (0.0-0.2); BILIRUBIN,TOTAL 0.4 mg/dL (0.2-1.0); TOTAL PROTEIN, SERUM 7.7 g/dL (6.4-8.2)
[2022-03-08 08:00] VITALS: BP 131/93
[2022-03-08] MEDS: ASPIRIN 81 MG TAB.CHEW GT SCH ×2 (08:15→08:57)
[2022-03-08] MEDS: AMLODIPINE BESYLATE 10 MG TABLET GT SCH ×2 (08:15→08:57)
[2022-03-08] MEDS: PANTOPRAZOLE 40 MG/PACK PACK GT SCH ×2 (08:15→08:57)
[2022-03-08] MEDS: ALLOPURINOL 100 MG TABLET GT SCH ×2 (08:16→08:57)
[2022-03-08] MEDS: CARVEDILOL 3.125 MG TABLET GT SCH ×3 (08:16→17:00)
[2022-03-08 15:55] VITALS: BP 124/81
--- NOTE | 2022-03-08 18:39 | NUR ---
RN Closing Note Patient responds to name, not able to express his concerns. Pending GTube placement and evaluation. Some medications were not administered due to G-Tube not available, MD notified. Will endorse report to night nurse for continuity of care. Patient remained safe and stable throughout shift. Monitored throughout shift and administered medications as ordered. All safety precautions taken, will endorse to night nurse for continuity of care. All safety precautions taken, call light and table within reach, bed at lowest position.
--- NOTE | 2022-03-08 19:30 | NUR ---
CLINICAL BIOSTATISTICS DIRECTOR OPENING NOTE RECEIVED PATIENT IN BED, AWAKE, A/O X 1, RESPONDS TO TOUCH AND NAME. CURRENTLY ON RA, TOLERATING WELL. NO S/SX OF ACUTE RESPI DISTRESS NOTED. NO SOB UPON ASSESSMENT. BREATHING IS EVEN AND UNLABORED. ON EXTERNAL FLOOR HAND READING SINUS RHYTHM, HR 90s. IV ACCESS NOTED ON LEFT FOREARM #22G, PATENT AND INTACT, SL. PATIENT STILL NPO, FOR G-TUBE REPLACEMENT TOMORROW MORNING. GOFF CATHETER IN PLACE, DRAINING YELLOW URINE BY GRAVITY. ALL SAFETY MEASURES IN PLACE: CALL LIGHT WITHIN REACH, SIDE RAILS UP X 2, BED LOCKED IN LOWEST POSITION, BED ALARM ON, HOB ELEVATED. WILL CONTINUE TO MONITOR PATIENT
[2022-03-08 20:00] VITALS: BP 120/86
[2022-03-09] VITALS: BP 120/85
[2022-03-09 04:00] VITALS: BP 127/84
[2022-03-09] MEDS: BLOOD SUGAR DIAGNOSTIC 1 EACH STRIP IN SCH ×4 (05:11→23:16)
[2022-03-09] MEDS: INSULIN REGULAR, HUMAN 100 UNIT/ML 3 ML VIAL SQ PRN (05:11)
--- NOTE | 2022-03-09 06:04 | NUR ---
RN NOTE NO SIGNIFICANT CHANGES T/O THE NIGHT. ALL NEEDS ATTENDED TO. TURNED AND REPOSITIONED. WILL ENDORSE TO AM SHIFT NURSE FOR JIMY.
--- NOTE | 2022-03-09 07:50 | NUR ---
RN OPENING NOTE PATIENT AWAKE IN BED RESTING A/O X 1. NO S/S OF PAIN NOTED AT THIS TIME. ON ROOM AIR, NO DISTRESS OR SHORTNESS OF BREATH NOTED. IV ACCESS LFA #22G, INTACT, PATENT AND FLUSHING WELL. PATIENT WITH EXTERNAL CHANNEL MARKETING PROGRAM MANAGER WITH CURRENT READING OF SR AND HR OF 95, NO CARDIAC DISTRESS NOTED. PATIENT HAVE A GOFF CATHETER, IN PLACE AND DRAINING WELL. FALL AND SAFETY MEASURES IN PLACE, BED ALARM ON, BED IN LOW AND LOCK POSITION, CALL LIGHT AND TABLE WITHIN EASY REACH, SIDE RAILS X2. WILL CONTINUE TO MONITOR.
[2022-03-09 08:00] VITALS: BP 120/85
[2022-03-09] MEDS: METOCLOPRAMIDE HCL 10 MG/2 ML VIAL IV SCH ×3 (08:56→17:05)
[2022-03-09] MEDS: ALLOPURINOL 100 MG TABLET GT SCH (10:21)
[2022-03-09] MEDS: AMLODIPINE BESYLATE 10 MG TABLET GT SCH (10:22)
[2022-03-09] MEDS: CARVEDILOL 3.125 MG TABLET GT SCH ×2 (10:22→17:05)
[2022-03-09] MEDS: NEPRO 1,000 ML BOTTLE GT SCH (10:23)
[2022-03-09] MEDS: PANTOPRAZOLE 40 MG/PACK PACK GT SCH (10:23)
[2022-03-09] MEDS: ASPIRIN 81 MG TAB.CHEW GT SCH (10:23)
[2022-03-09 16:00] VITALS: BP 123/80
--- NOTE | 2022-03-09 18:52 | NUR ---
RN CLOSING NOTE PATIENT AWAKE IN BED RESTING A/O X 1. NO S/S OF PAIN NOTED AT THIS TIME. ON ROOM AIR, NO DISTRESS OR SHORTNESS OF BREATH NOTED. IV ACCESS LFA #22G, INTACT, PATENT AND FLUSHING WELL. PATIENT WITH EXTERNAL FIRESETTER WITH CURRENT READING OF ST AND HR OF 105, NO CARDIAC DISTRESS NOTED. PATIENT HAVE A GOFF CATHETER, IN PLACE AND DRAINING WELL, OUTPUT 250ML. PATIENT HAVE A G-TUBE, IN PLACE, FEEDING RUNNING NEPRO @ 30ML/HR GOAL 50ML/HR. PATIENT WAS TURNED AND REPOSITIONED PER PROTOCOL. WOUND CARE IMPLEMENTED. SCHEDULE MEDICATIONS ADMINISTERED. FALL AND SAFETY MEASURES IN PLACE, BED ALARM ON, BED IN LOW AND LOCK POSITION, CALL LIGHT AND TABLE WITHIN EASY REACH, SIDE RAILS X2. WILL ENDORSE TO AUTO ELECTRICIAN.
--- NOTE | 2022-03-09 19:30 | NUR ---
CHIMNEY MECHANIC OPENING NOTE RECEIVED PATIENT IN BED, WITH HOB ELEVATED, ALERT AND ORIENTED X1. AFEBRILE AND NOT IN ANY FORM OF ACUTE DISTRESS. BREATHING EVEN AND NON LABORED. WITH INTACT G-TUBE RUNNING WITH NEPHRO AT 50ML/HR. WITH GOFF CATHETER, DRAINING WITH YELLOW URINE OUTPUT, NO HEMATURIA OR SEDIMENTS NOTED. WITH IV ACCESS ON LEFT FOREARM 22G SL. SAFETY MEASURES IN PLACE. KEPT BED IN LOCKED AND IN LOW POSITION. SIDE RAILS UP X2. CALL LIGHT WITHIN EASY REACH.
[2022-03-09 20:00] VITALS: BP 122/78
[2022-03-10] VITALS: BP 128/87
[2022-03-10 04:00] VITALS: BP 121/83
[2022-03-10] MEDS: BLOOD SUGAR DIAGNOSTIC 1 EACH STRIP IN SCH ×3 (05:34→17:43)
--- NOTE | 2022-03-10 06:43 | NUR ---
DRY KILN LOADER CLOSING NOTE PATIENT IN BED, WITH HOB ELEVATED, ASLEEP BUT EASY TO AROUSE AND RESPONDS TO VERBAL AND TACTILE STIMULI. AFEBRILE AND NOT IN ANY FORM OF ACUTE DISTRESS. BREATHING EVEN AND NON LABORED. WITH INTACT G-TUBE RUNNING WITH NEPHRO AT 35ML/HR. WITH GOFF CATHETER, INTACT AND DRAINING WELL WITH YELLOW URINE OUTPUT, NO HEMATURIA OR SEDIMENTS NOTED. WITH IV ACCESS ON LEFT FOREARM 22G SL. ON TELE MONITORING WITH CURRENT READING OF ST 110. MONITORED FOR ANY S/SX. OF HYPO/HYPERGLYCEMIA. SAFETY MEASURES IN PLACE. KEPT BED IN LOCKED AND IN LOW POSITION. SIDE RAILS UP X2. CALL LIGHT WITHIN EASY REACH. CONSTANT VISUAL CHECK DONE TO ENSURE SAFETY. ALL NURSING NEEDS ATTENDED. ENDORSED TO INCOMING SHIFT FOR CONTINUITY OF CARE.
[2022-03-10 06:58] LABS: ALBUMIN 3.3 g/dL (3.4-5.0); BILIRUBIN,DIRECT 0.1 mg/dL (0.0-0.2); BILIRUBIN,TOTAL 0.2 mg/dL (0.2-1.0); TOTAL PROTEIN, SERUM 8.3 g/dL (6.4-8.2)
[2022-03-10 08:00] VITALS: BP 129/88
--- NOTE | 2022-03-10 08:10 | NUR ---
RN OPENING NOTE PATIENT AWAKE IN BED RESTING A/O X 1. NO S/S OF PAIN NOTED AT THIS TIME. ON ROOM AIR, NO DISTRESS OR SHORTNESS OF BREATH NOTED. IV ACCESS LFA #22G, INTACT, PATENT AND FLUSHING WELL. PATIENT WITH EXTERNAL OUTER DIAMETER GRINDER WITH CURRENT READING OF ST AND HR OF 110, NO CARDIAC DISTRESS NOTED. PATIENT HAVE A GOFF CATHETER, IN PLACE AND DRAINING WELL. PATIENT HAVE A G-TUBE, FEEDING RUNNING NEPHRO AT 35ML/HR, TOLERATING WELL. FALL AND SAFETY MEASURES IN PLACE, BED ALARM ON, BED IN LOW AND LOCK POSITION, CALL LIGHT AND TABLE WITHIN EASY REACH, SIDE RAILS X2. WILL CONTINUE TO MONITOR.
[2022-03-10] MEDS: METOCLOPRAMIDE HCL 10 MG/2 ML VIAL IV SCH ×3 (09:02→17:42)
[2022-03-10] MEDS: ASPIRIN 81 MG TAB.CHEW GT SCH (09:02)
[2022-03-10] MEDS: PANTOPRAZOLE 40 MG/PACK PACK GT SCH (09:02)
[2022-03-10] MEDS: CARVEDILOL 3.125 MG TABLET GT SCH ×2 (09:03→17:42)
[2022-03-10] MEDS: AMLODIPINE BESYLATE 10 MG TABLET GT SCH (09:03)
[2022-03-10] MEDS: ALLOPURINOL 100 MG TABLET GT SCH (09:03)
[2022-03-10 11:33] LABS: BASOPHILS # (AUTO) 0.1 K/uL (0.0-0.2); BASOPHILS % (AUTO) 1.1 % (0.0-2.0); EOSINOPHILS % (AUTO) 0.4 % (0.0-6.0); HEMATOCRIT 30 % (39-51); HEMOGLOBIN 9.8 g/dL (13.5-17.5); LYMPHOCYTES # (AUTO) 1.4 K/uL (0.8-4.8); LYMPHOCYTES % (AUTO) 15.3 % (20.0-44.0); MEAN CORPUSCULAR HGB CONC 32 g/dl (31.0-36.0); MEAN CORPUSCULAR VOLUME 91 fL (80-96); MONOCYTES # (AUTO) 0.7 K/uL (0.1-1.30); MONOCYTES % (AUTO) 7.4 % (2.0-12.0); NEUTROPHILS # (AUTO) 7.2 K/uL (1.8-8.9); NEUTROPHILS % (AUTO) 75.8 % (43.0-81.0); PLATELET COUNT (AUTO) 433 K/uL (150-450); RED BLOOD CELL COUNT(AUTO) 3.33 MIL/uL (4.5-6.0); WHITE BLOOD COUNT (AUTO) 9.5 K/uL (4.3-11.0)
--- NOTE | 2022-03-10 15:15 | NUR ---
called pt's Breanna Sebastian for update about RR no answer, left msg to call back.
--- NOTE | 2022-03-10 15:40 | NUR ---
pt's spouse called back, updated with pt's condition and new orders. She conformed that pt is DNR/DNI.
--- NOTE | 2022-03-10 15:40 | NUR ---
RN NOTE WHILE ID WAS AT BED SIDE WE ASSESSED PATIENT AND PATIENT WAS DIAPHORETIC AND SATURATION WAS DECREASING. RESPIRATORY THERAPIST WAS CALLED. RAPID RESPONSE WAS CALLED AT 1557. PATIENT SATURATION WAS ON THE 80'S, BLOOD SUGAR 156, HR:150. BP WAS TAKEN MANUALLY 106/78. ON MONITOR PATIENT WAS ST HR 140. PATIENT WAS PUT ON NON-REBREATHER MASK SATURATION INCREASED TO 92% AT 1510. PATIENT WAS SUCTION BY RT, PATIENT HAD A LOT OF SECRETION, BY 1520 PATIENT SATURATION IMPROVE TO 97%, BP WAS STABLE, HR 125, CHEST X-RAY, ARTERIAL BLOOD GAS, BLOOD CULTURE, EKG, LACTIC ACID AND PROCALCITONIN WAS ORDERED. FAMILY WAS CONTACTED AND INFORMED. AT THE MOMENT PATIENT IS IN BED RESTING COMFORTABLY. WILL CONTINUE TO MONITOR.
[2022-03-10 16:00] VITALS: BP 112/83
[2022-03-10 17:17] LABS: CREATININE 3.5 mg/dL (0.6-1.3)
[2022-03-10] MEDS: VANCOMYCIN 500 MG in IV D5W 100 ML IV SCH (17:42)
--- NOTE | 2022-03-10 17:45 | NUR ---
TOÑO NOTES PATIENT IS HAVING FEVER 100.3 F. APPLIED ICE PACK AT [place] AREA. TOLERATED WELL. GIVEN TYLENOL 650MG VIA G-TUBE. WILL CONTINUE TO MONITOR. Addendum: 03/10/22 at 2032 by CORA CAMPBELL RN TIME CORRECTION: 19:45
--- NOTE | 2022-03-10 18:09 | NUR ---
ABG order canceled by dr. Hartman.
[2022-03-10] MEDS: LEVOFLOXACIN 500 MG /D5W 100ML 500 MG in PREMIX 1 EA IV SCH (19:08)
--- NOTE | 2022-03-10 19:27 | NUR ---
RN CLOSING NOTE PATIENT AWAKE IN BED RESTING A/O X 1. NO S/S OF PAIN NOTED AT THIS TIME. ON 12L OXYGEN VIA MASK, NO DISTRESS OR SHORTNESS OF BREATH NOTED. IV ACCESS LFA #22G, INTACT, PATENT AND FLUSHING WELL. PATIENT WITH EXTERNAL PROCESS INSPECTOR WITH CURRENT READING OF ST AND HR OF 102, NO CARDIAC DISTRESS NOTED. PATIENT HAVE A GOFF CATHETER, IN PLACE AND DRAINING WELL. PATIENT HAVE A G-TUBE, IN PLACE, FEEDING HELD FOR NOW. PATIENT WAS TURNED AND REPOSITIONED PER PROTOCOL. WOUND CARE IMPLEMENTED. SCHEDULE MEDICATIONS ADMINISTERED. FALL AND SAFETY MEASURES IN PLACE, BED ALARM ON, BED IN LOW AND LOCK POSITION, CALL LIGHT AND TABLE WITHIN EASY REACH, SIDE RAILS X2. WILL ENDORSE TO PRICING LEAD.
[2022-03-10 19:51] VITALS: BP 106/78
[2022-03-10] MEDS: ACETAMINOPHEN 325 MG TABLET MC PRN (19:56)
[2022-03-10 20:00] VITALS: BP 114/81
--- NOTE | 2022-03-10 20:00 | NUR ---
BACK TENDER INSULATION BOARD OPENING NOTE RECEIVED PATIENT AWAKE IN BED RESTING, WITH AT BEDSIDE. A/O X 1. NO S/S OF PAIN NOTED AT THIS TIME. ON 12L OXYGEN VIA MASK, NO DISTRESS OR SHORTNESS OF BREATH NOTED. IV ACCESS LFA #22G, INTACT, PATENT AND FLUSHING WELL. PATIENT WITH EXTERNAL SAMPLE TESTER GRINDER WITH CURRENT READING OF ST AND HR OF 100, NO CARDIAC DISTRESS NOTED. PATIENT HAVE A GOFF CATHETER, IN PLACE AND DRAINING WELL. PATIENT HAVE A G-TUBE, IN PLACE, FEEDING HELD FOR NOW. FALL AND SAFETY MEASURES IN PLACE, BED ALARM ON, BED IN LOW AND LOCK POSITION, CALL LIGHT AND TABLE WITHIN EASY REACH, SIDE RAILS X2. WILL CONTINUE TO MONITOR.
--- NOTE | 2022-03-10 22:10 | NUR ---
PATIENT'S TEMP 98.7. KEPT COMFORTABLE. WILL CONTINUE TO MONITOR.
[2022-03-11] VITALS: BP 106/88
[2022-03-11] MEDS: BLOOD SUGAR DIAGNOSTIC 1 EACH STRIP IN SCH ×5 (06:41→23:25)
[2022-03-11 07:06] LABS: CALCIUM, SERUM 10.4 mg/dL (8.5-10.1); POTASSIUM 4.5 mmol/L (3.5-5.1)
[2022-03-11 07:07] LABS: ALBUMIN 3.2 g/dL (3.4-5.0); BILIRUBIN,TOTAL 0.5 mg/dL (0.2-1.0); MAGNESIUM 2.6 mg/dL (1.8-2.4); TOTAL PROTEIN, SERUM 8.2 g/dL (6.4-8.2)
--- NOTE | 2022-03-11 07:31 | NUR ---
CABLE ASSEMBLER AND SWAGER CLOSING NOTE PATIENT IN BED, WITH HOB ELEVATED, ASLEEP BUT EASY TO AROUSE AND RESPONDS TO VERBAL AND TACTILE STIMULI. AFEBRILE AND NOT IN ANY FORM OF ACUTE DISTRESS. BREATHING EVEN AND NON LABORED. HOLD FEEDING AT THIS TIME. WITH GOFF CATHETER, INTACT AND DRAINING WELL WITH YELLOW URINE OUTPUT, NO HEMATURIA OR SEDIMENTS NOTED. WITH IV ACCESS ON LEFT FOREARM 22G SL. ON TELE MONITORING WITH CURRENT READING OF ST 103. MONITORED FOR ANY S/SX. OF HYPO/HYPERGLYCEMIA. SAFETY MEASURES IN PLACE. KEPT BED IN LOCKED AND IN LOW POSITION. SIDE RAILS UP X2. CALL LIGHT WITHIN EASY REACH. CONSTANT VISUAL CHECK DONE TO ENSURE SAFETY. ALL NURSING NEEDS ATTENDED. ENDORSED TO INCOMING SHIFT FOR CONTINUITY OF CARE.
--- NOTE | 2022-03-11 07:44 | NUR ---
MEN'S AND BOYS' CLOTHING SALESPERSON OPENING NOTE RECEIVED PATIENT AWAKE IN BED RESTING. A/O X 1. NO S/S OF PAIN VIA FLACC, NO ACUTE DISTRESS NOTED AT THIS TIME, AFEBRILE. PT IS ON 15L OXYGEN VIA MASK, NO S/S OF SOB NOTED. IV ACCESS LFA #22G, INTACT, PATENT AND FLUSHING WELL. TELE MONITOR READS SINUS TACH, HR- 104. FC CATH NOTED DRAINING CLEAR YELLOW URINE. G-TUBE IN PLACE NOTED, FEEDING HELD FOR NOW PER MD. SAFETY MEASURES IN PLACE, HOB ELEVATED AT 40 DEGREES AT ALL TIMES, LOCKED AT LOWEST POSITION. CALL LIGHT AND TABLE WITHIN EASY REACH, SIDE RAILS X2. WILL CONTINUE WITH PLAN OF CARE DURING SHIFT.
[2022-03-11 08:00] VITALS: BP 121/84
[2022-03-11] MEDS: ALLOPURINOL 100 MG TABLET GT SCH (08:39)
[2022-03-11] MEDS: METOCLOPRAMIDE HCL 10 MG/2 ML VIAL IV SCH ×3 (08:39→16:11)
[2022-03-11] MEDS: ASPIRIN 81 MG TAB.CHEW GT SCH (08:39)
[2022-03-11] MEDS: AMLODIPINE BESYLATE 10 MG TABLET GT SCH (08:39)
[2022-03-11] MEDS: PANTOPRAZOLE 40 MG/PACK PACK GT SCH (08:39)
[2022-03-11] MEDS: CARVEDILOL 3.125 MG TABLET GT SCH ×2 (08:40→16:08)
[2022-03-11 09:21] LABS: BASOPHILS # (AUTO) 0.1 K/uL (0.0-0.2); BASOPHILS % (AUTO) 0.4 % (0.0-2.0); HEMATOCRIT 29 % (39-51); HEMOGLOBIN 9.3 g/dL (13.5-17.5); LYMPHOCYTES # (AUTO) 1.6 K/uL (0.8-4.8); LYMPHOCYTES % (AUTO) 8.3 % (20.0-44.0); MEAN CORPUSCULAR HGB CONC 32 g/dl (31.0-36.0); MEAN CORPUSCULAR VOLUME 92 fL (80-96); MONOCYTES # (AUTO) 0.9 K/uL (0.1-1.30); MONOCYTES % (AUTO) 4.7 % (2.0-12.0); NEUTROPHILS # (AUTO) 17.1 K/uL (1.8-8.9); NEUTROPHILS % (AUTO) 86.6 % (43.0-81.0); PLATELET COUNT (AUTO) 398 K/uL (150-450); RED BLOOD CELL COUNT(AUTO) 3.16 MIL/uL (4.5-6.0); WHITE BLOOD COUNT (AUTO) 19.7 K/uL (4.3-11.0)
[2022-03-11 12:00] VITALS: BP 107/74
[2022-03-11] MEDS: INSULIN REGULAR, HUMAN 100 UNIT/ML 3 ML VIAL SQ PRN ×3 (12:06→23:25)
[2022-03-11] MEDS: IPRATROPIUM NEB FS 0.5 MG/2.5 ML AMPUL.NEB NEB SCH ×2 (13:54→19:57)
[2022-03-11] MEDS: LEVALBUTEROL HCL NEB 1.25 MG/0.5 ML VIAL.NEB NEB SCH ×2 (13:54→19:58)
--- NOTE | 2022-03-11 14:45 | NUR ---
ELECTRICAL PROSPECTING SUPERVISOR NOTES: TUBE FEEDING RESUMED, OK PER MD NEPHANDREW AT 35ML/HR.
[2022-03-11 16:00] VITALS: BP 120/86
[2022-03-11] MEDS: VANCOMYCIN 500 MG in IV D5W 100 ML IV SCH (16:10)
--- NOTE | 2022-03-11 19:19 | NUR ---
SET BUILDER CLOSING NOTES: PATIENT SLEEPING, EASILY ROUSED. A/O X 1. NO S/S OF PAIN VIA FLACC, NO ACUTE DISTRESS NOTED AT THIS TIME, AFEBRILE. PT IS ON 15L OXYGEN VIA MASK, NO S/S OF SOB NOTED. IV ACCESS LFA #22G, INTACT, PATENT AND FLUSHING WELL. TELE MONITOR READS SINUS TACH, HR- 102. FC CATH NOTED DRAINING CLEAR YELLOW URINE, DRAINED 400 CC DURING SHIFT. G-TUBE FEEDING RESUMED AT 35ML/HR PER MD. SCHEDULED MEDS GIVEN, KEPT PT CLEAN, DRY AND COMFORTABLE. SAFETY MEASURES IN PLACE, HOB ELEVATED AT 40 DEGREES AT ALL TIMES, LOCKED AT LOWEST POSITION. CALL LIGHT AND TABLE WITHIN EASY REACH, SIDE RAILS X2, WILL ENDORSED TO PM SHIFT.
--- NOTE | 2022-03-11 19:34 | NUR ---
CONSULTING PSYCHIATRIST OPENING NOTE RECEIVED PATIENT AWAKE IN BED RESTING. A/O X 1. NO S/S OF PAIN VIA FLACC, NO ACUTE DISTRESS NOTED AT THIS TIME, AFEBRILE. PT IS ON 15L OXYGEN VIA MASK, NO S/S OF SOB NOTED. IV ACCESS LFA #22G, INTACT, PATENT AND FLUSHING WELL. TELE MONITOR READS SINUS TACH, HR- 104. FC CATH NOTED DRAINING CLEAR YELLOW URINE. G-TUBE IN PLACE NOTED, FEEDING RESUMED TO NEPHRO 35ML/HR. SAFETY MEASURES IN PLACE, HOB ELEVATED AT 40 DEGREES AT ALL TIMES, LOCKED AT LOWEST POSITION. CALL LIGHT AND TABLE WITHIN EASY REACH, SIDE RAILS X2. WILL CONTINUE WITH PLAN OF CARE DURING SHIFT.
--- NOTE | 2022-03-11 20:00 | NUR ---
RN NOTES PATIENT IS DESATURATING 02SAT OF 78-80% USING SIMPLE FACEMASK AT 8LPM. SWITCHED TO NON-REBREATHER MASK AT 15LPM. 02 SAT 88-90% AT THIS TIME. BREATHING TREATMENT DONE BY RT. 02 SAT REMAINS THE SAME. PATIENT IS TRYING TO COUGH SECRETIONS BUT UNABLE TO EXPECTORATE. WILL DO NASOTRACHEAL SUCTION BY RT NEEDED, MD ORDERED.
--- NOTE | 2022-03-11 21:35 | NUR ---
RT Stat ABG completed, Results given to utility bag assembler Grace and TOÑO Albright
--- NOTE | 2022-03-11 21:46 | NUR ---
RT * late entry * Pt recvd at start of shift just placed on NRB 100% Fio2 because pt had taken of his simple mask. Pt desaturated, slowly improved, scheduled breathing tx given and CPT performed on Left and Right side at this time. RN at bedside.
[2022-03-11 21:58] LABS: ABG BASE EXCESS -7.5 mmol/L; ABG OXYGEN SATURATION 84.5 % (92.0-98.5); ABG PCO2 26.9 mmHg (35.0-45.0); ABG PH 7.395 (7.350-7.450); ABG PO2 49.2 mmHg (75.0-100.0); AaDO2 636.9 mmHg; COHb 0.3 % (0.5-1.5); O2Hb 84.2 % (94.0-97.0); SITE, ABG Right Radial; VENT MODE, BG NRB 100%
--- NOTE | 2022-03-11 22:02 | NUR ---
RN NOTES RECEIVED ENDORSEMENT REPORT FROM [facility] FROM 3W. ALL PERTINENT ADMISSION INFO REGARDING PT NOTED. WILL WAIT FOR PT TO BE TRANSFERRED TO UNIT AND ADDRESS NEEDS ACCORDINGLY. WHEEL CUTTER MADE AWARE.
[2022-03-11 22:10] VITALS: BP 108/75
--- NOTE | 2022-03-11 22:15 | NUR ---
PATIENT STILL DESATURATING, 02 SATURATION READS 88% WITH 02 SUPPLEMENTATION OF 15LPM VIA NON-REBREATHER MASK. WILL TRANSFER TO [facility] TO INITIATE HIGH FLOW NASAL CANNULA, MD ORDERED.
--- NOTE | 2022-03-11 22:15 | NUR ---
RN NOTES RECEIVED PT FROM 3W VIA BED ACCOMPANIED BY 2 3W STAFF AND TRANSFERRED TO BED VIA 2-3 PERSON ASSIST. PT IS A/OX1; NON VERBAL AND CONTRACTED; WITH RESPIRATIONS NOTED TO BE LABORED. RT INTIIAL HOOKED PT ON HIGH FLOW 40L AND FIO2 100%, SATURATION REMAINS BELOW 90%;87%. NRB MASK ON 15L PLACED TO BY RT. COMPREHENSIVE PHYSICAL ASSESSMENT AND PATIENT CARE DONE. CALL LIGHT WITHIN REACH, SAFETY MEASURES AND ISOLATION PRECAUTION IN PLACE, WILL CONTINUE MONITOR AND ASSESS THROUGHOUT THE SHIFT. WILL CARRY OUT MD ORDERS ACCORDINGLY. BUSINESS MACHINE OPERATOR MADE AWARE.
[2022-03-11] MEDS: NEPRO 1,000 ML BOTTLE GT SCH (22:19)
--- NOTE | 2022-03-11 22:30 | NUR ---
RT PT WAS TRANSFERRED TO [facility], I PLACED PT ON HFNC PER MD ORDER WITH SETTINGS OF 40 LPM 100% FIO2. NRB 100% ADDED IN ADDITION TO HFNC. TOÑO SORIANO AT BEDSIDE.
--- NOTE | 2022-03-11 22:45 | NUR ---
RN NOTES INFORMED ONCALL (DR. REYES) REGARDING PT STATUS UPDATE, ON HIGH FLOW 40L 100% AND NRB MASK 15L SATURATION RUNNING BETWEEN 85-90%, MOSTLY SUSTAINING AT 87% AT THIS TIME, PT DNR. NO NEW ORDERS AT THIS TIME. WILL CONTINUE TO MONITOR AND ASSESS THROUGHOUT THE SHIFT. SALESPERSON SHOES WELL AWARE.
--- NOTE | 2022-03-11 22:50 | NUR ---
RN NOTES PT FEEDING HELD AT THIS TIME, PT STILL UNSTABLE. WILL RESUME ONCE PT NOT IN DISTRESS AND STABLE TO TOLERATE FEEDING. WILL CONTINUE TO ASSESS AND MONITOR THROUGHOUT THE SHIFT. WIRED MUSIC OPERATOR MADE AWARE.
[2022-03-11] MEDS: IV D5/0.45 NACL 1,000 ML IV PRN (22:53)
[2022-03-11] MEDS: ACETAMINOPHEN 325 MG TABLET MC PRN (22:54)
--- NOTE | 2022-03-11 23:00 | NUR ---
RN NOTES OLD IV ACCESS NO LONGER WORKING. SECURED NEW IV LINE ON L FA#22, PATENT INTACT AND FLUSHING WELL. MAINTAINER OPERATOR WELL AWARE.
[2022-03-12] VITALS: BP 117/84
[2022-03-12] MEDS: LEVALBUTEROL HCL NEB 1.25 MG/0.5 ML VIAL.NEB NEB SCH ×4 (01:59→20:33)
[2022-03-12] MEDS: IPRATROPIUM NEB FS 0.5 MG/2.5 ML AMPUL.NEB NEB SCH ×4 (01:59→20:33)
[2022-03-12 04:00] VITALS: BP 111/79
--- NOTE | 2022-03-12 04:00 | NUR ---
RN NOTES PATIENT REMAINED TO BE IN NO SIGNS OF ACUTE RESPIRATORY DISTRESS , VITAL SIGNS STABLE AT THIS TIME. REGULAR TURNING AND REPOSITIONING DONE AND AM PATIENT CARE RENDERED WILL CONTINUE TO MONITOR AND REASSESS FOR ANY CHANGES THROUGHOUT THE SHIFT.
--- NOTE | 2022-03-12 05:15 | NUR ---
RN NOTES RT COORDINATED HIGHFLOW NEW SETTINGS: 40L 70%FIO2; TOLERATING WELL >95%. RN ACKNOWLEDGED. WILL CONTINUE TO MONITOR AND ASSESS.
[2022-03-12] MEDS: BLOOD SUGAR DIAGNOSTIC 1 EACH STRIP IN SCH ×3 (05:25→17:34)
[2022-03-12] MEDS: INSULIN REGULAR, HUMAN 100 UNIT/ML 3 ML VIAL SQ PRN (05:28)
--- NOTE | 2022-03-12 05:31 | NUR ---
Fio2 titrated to 70%, TOÑO camarillo informed.
--- NOTE | 2022-03-12 06:48 | NUR ---
RN CLOSING NOTE: PATIENT REMAINS IN ROOM IN NO SIGNS OF RESPIRATORY DISTRESS, PATIENT NOW ON HIGH FLOW WITH SETTINGS OF 40L 70%FIO2; TOLERATING WELL SATURATING @ >95% SP02. SAFETY MEASURES IMPLEMENTED, BED IN LOWEST POSITION, LOCKED, SIDE RAILS UP, CALL LIGHT WITHIN REACH. ALL NEEDS AND ORDERS ADDRESSED DURING THE SHIFT. IV ACCESS MAINTAINED INTACT, SECURED AND FLUSHING WELL. IV FLUIDS TUBE FEEDING RUNNING PER ORDER. ALL DUE MEDS GIVEN ORDERED & SCHEDULED ; PATIENT TOLERATED WELL. PATIENT KEPT CLEAN AND COMFORTABLE WITHIN THE SHIFT. PATIENT ENDORSED TO INCOMING SHIFT RN WITH STABLE VITAL SIGN AND FOR CONTINUITY OF CARE.
[2022-03-12 07:15] LABS: CALCIUM, SERUM 9.5 mg/dL (8.5-10.1); CREATININE 4.1 mg/dL (0.6-1.3); MAGNESIUM 2.8 mg/dL (1.8-2.4); PHOSPHORUS 5.4 mg/dL (2.5-4.9); POTASSIUM 4.4 mmol/L (3.5-5.1)
[2022-03-12 07:56] LABS: BASOPHILS % (AUTO) 0.1 % (0.0-2.0); HEMATOCRIT 30 % (39-51); HEMOGLOBIN 9.4 g/dL (13.5-17.5); LYMPHOCYTES # (AUTO) 0.7 K/uL (0.8-4.8); LYMPHOCYTES % (AUTO) 3.4 % (20.0-44.0); MEAN CORPUSCULAR HGB CONC 32 g/dl (31.0-36.0); MEAN CORPUSCULAR VOLUME 92 fL (80-96); MONOCYTES # (AUTO) 0.9 K/uL (0.1-1.30); MONOCYTES % (AUTO) 4.2 % (2.0-12.0); NEUTROPHILS # (AUTO) 19.3 K/uL (1.8-8.9); NEUTROPHILS % (AUTO) 92.3 % (43.0-81.0); PLATELET COUNT (AUTO) 405 K/uL (150-450); RED BLOOD CELL COUNT(AUTO) 3.22 MIL/uL (4.5-6.0); WHITE BLOOD COUNT (AUTO) 20.9 K/uL (4.3-11.0)
[2022-03-12 08:00] VITALS: BP 117/76
--- NOTE | 2022-03-12 08:00 | NUR ---
DEMETRIUS RN NOTE PATIENT IN BED , ALERT ORIENTED X1 , ON TELE MONITOR SR HR 80 . WITH HIGH FLOW O2 ORDERED 40% FIO2 70% AT THIS TIME, SATURATION 100 % AT THIS TIME, LT FA HL INTACT AND FLUSHED HD WELL ON IVF ORDERED BED IN LOWEST AND LOCKED POSITION CALL LIGHT WITHIN REACH , WILL CONT TO MONITOR CLOSELY, WITH GOFF CATH TO GRAVITY WIT YELLOW COLOR URINE,BED IN LOWEST AND LOCKED POSITION
[2022-03-12] MEDS: CARVEDILOL 3.125 MG TABLET GT SCH ×2 (09:06→16:21)
[2022-03-12] MEDS: PANTOPRAZOLE 40 MG/PACK PACK GT SCH (09:07)
[2022-03-12] MEDS: METOCLOPRAMIDE HCL 10 MG/2 ML VIAL IV SCH ×3 (09:07→16:22)
[2022-03-12] MEDS: ALLOPURINOL 100 MG TABLET GT SCH (09:07)
[2022-03-12] MEDS: ASPIRIN 81 MG TAB.CHEW GT SCH (09:07)
[2022-03-12] MEDS: AMLODIPINE BESYLATE 10 MG TABLET GT SCH (09:08)
[2022-03-12] MEDS: IV D5/0.45 NACL 1,000 ML IV PRN (09:29)
--- NOTE | 2022-03-12 11:56 | NUR ---
DEMETRIUS RN NOTES MID LINE NURSE AT BEDSIDE RIGHT UPPER ARM MIDLINE INSERTED
[2022-03-12 12:00] VITALS: BP 101/64
--- NOTE | 2022-03-12 12:21 | NUR ---
DEMETRIUS NURSE NOTE RT AT BEDSIDE CHANGED FIO2 TO 50%, SATURATION 100% AT THIS TIME, WILL MONITOR
--- NOTE | 2022-03-12 13:55 | NUR ---
DEMETRIUS RN NOTE REPORTED TO DR HAMMER TROPONIN 92 ORDERED REPAY IN 6 HOUR, NEXT TIME WILL DO AT 1999, ORDER CARRIED OUT
--- NOTE | 2022-03-12 14:42 | NUR ---
DEMETRIUS RN NOTE DR MADRID NOTIFIED THAT BNP IS [id number]. ORDERED 2DECHO AND STOP IVF. ORDER CARRIED OUT.
--- NOTE | 2022-03-12 15:01 | NUR ---
DEMETRIUS RN NOTE NOTIFIED TO [facility] PHARMACY CASHIER THAT WBC TODAY 20.9 ON VANCO AND LEVAQUIN, BLOOD CX DONE ON 03/10/22 ,NO NEW ORDER GIVEN AT THIS TIME WILL F\U
[2022-03-12] MEDS: VANCOMYCIN 500 MG in IV D5W 100 ML IV SCH (15:04)
[2022-03-12 16:00] VITALS: BP 100/65
[2022-03-12] MEDS: LEVOFLOXACIN 500 MG /D5W 100ML 500 MG in PREMIX 1 EA IV SCH (16:22)
--- NOTE | 2022-03-12 16:43 | NUR ---
lulú rn note dr fagan embedded software manager notified that bun 94 creat 4.1 aware that urine out put 1200 ml for today no new order given at this time Addendum: 03/12/22 at 1732 by NATHAN JOSE RN correction charting urine output for today 600 ml ,will inform dr fagan
--- NOTE | 2022-03-12 17:38 | NUR ---
DEMETRIUS RN NOTE DUPLEX STUDY DONE AND 2D ECHO DONE , NOT IN DISTRESS
[2022-03-12] MEDS: ACETAMINOPHEN 325 MG TABLET MC PRN (17:48)
--- NOTE | 2022-03-12 18:30 | NUR ---
DEMETRIUS RN NOTES PT IN A BAD RESTING, ON HIGH FLOW, 40L FIO2 50%, SATURATION 100%. PT ON TELEMONITOR, SR HR 80. PT HAS GOFF CATHETER WITH YELLOW COLOR URINE NOTED. YULIANA MIDLINE INPLACE AND FLUSH WELL.T 100.0, TYLENOL GIVEN, COOLING MEASURES PROVIDED. CONTINUING ON G -TUBE FEEDING ORDERED,TOLERATING WELL. CALL LIGHT WITHIN REACH. BED IN LOWEST POSITION, SAFETY MEASURES IMPLEMENTED. CONTINUE MONITORING.
[2022-03-12 20:00] VITALS: BP 122/82
--- NOTE | 2022-03-12 20:00 | NUR ---
DEMETRIUS RN NOTE PT IN BED AWAKE. A/O X 1, NO DISTRESS OR DISCOMFORT NOTED. NO S/S OF PAIN NOTED. ON HF 40L 50% FIO2 O2 SAT 100%. ON TELE SR HR 88. PT ON GT FEEDING 40 ML/HR, 0 ML RESIDUAL NOTED. YULIANA WITH MIDLINE INTACT AND PATENT. F/C INTACT AND PATENT DRAINING YELLOWISH COLOR URINE. ALL NEEDS ATTENDED. KEPT HIS HOB ELEVATED. KEPT HIM DRY AND CLEAN. VSS. CONTINUE TO MONITOR HIM.
--- NOTE | 2022-03-12 20:38 | NUR ---
DEMETRIUS RN NOTE TRANSPORT DRIVER MARTÍNEZ INFORMED TROP IS 82 WHICH IS TRENDING DOWN.
--- NOTE | 2022-03-12 20:45 | NUR ---
DEMETRIUS RN NOTE PT RT HF SETTINGS CHANGED TO 30L FIO2 40% O2 SAT 100%.
[2022-03-12] MEDS: HEPARIN SODIUM, PORCINE 5000 UNITS/1 ML VIAL SQ SCH (21:23)
--- NOTE | 2022-03-12 22:00 | NUR ---
DEMETRIUS RN NOTE RT CHANGED THE HF SETTINGS TO 25L FIO2 40%, O2 SAT 100%.
--- NOTE | 2022-03-12 22:00 | NUR ---
DEMETRIUS RN NOTE PT IS KEPT ON GETTING CONGESTED. DEEP SUCTIONING DONE MODERATE AMOUNT OF WHITISH/YELLOWISH SECRETION NOTED. KEPT HIS HOB ELEVATED TO 40 DEGREES. RT ALSO DID FREQUENT SUCTIONING.
[2022-03-13] VITALS: BP 113/83
[2022-03-13] MEDS: BLOOD SUGAR DIAGNOSTIC 1 EACH STRIP IN SCH ×4 (00:23→17:45)
[2022-03-13] MEDS: IPRATROPIUM NEB FS 0.5 MG/2.5 ML AMPUL.NEB NEB SCH ×4 (02:25→19:58)
[2022-03-13] MEDS: LEVALBUTEROL HCL NEB 1.25 MG/0.5 ML VIAL.NEB NEB SCH ×4 (02:25→19:58)
--- NOTE | 2022-03-13 02:35 | NUR ---
DEMETRIUS RN NOTE RT READJUSTED HF RATE TO 30L 40% FIO2 DUE TO PT DESATURATING TO 89. NOW IS 95%
[2022-03-13 04:00] VITALS: BP 118/76
[2022-03-13 06:01] LABS: CALCIUM, SERUM 9.7 mg/dL (8.5-10.1); CREATININE 3.4 mg/dL (0.6-1.3); MAGNESIUM 2.5 mg/dL (1.8-2.4); PHOSPHORUS 3.4 mg/dL (2.5-4.9); POTASSIUM 3.4 mmol/L (3.5-5.1)
[2022-03-13 06:56] LABS: BASOPHILS % (AUTO) 0.1 % (0.0-2.0); EOSINOPHILS % (AUTO) 0.1 % (0.0-6.0); HEMATOCRIT 25 % (39-51); HEMOGLOBIN 8.1 g/dL (13.5-17.5); LYMPHOCYTES # (AUTO) 0.4 K/uL (0.8-4.8); LYMPHOCYTES % (AUTO) 2.6 % (20.0-44.0); MEAN CORPUSCULAR HGB CONC 33 g/dl (31.0-36.0); MEAN CORPUSCULAR VOLUME 91 fL (80-96); MONOCYTES # (AUTO) 0.8 K/uL (0.1-1.30); MONOCYTES % (AUTO) 5.5 % (2.0-12.0); NEUTROPHILS # (AUTO) 12.6 K/uL (1.8-8.9); NEUTROPHILS % (AUTO) 91.7 % (43.0-81.0); PLATELET COUNT (AUTO) 429 K/uL (150-450); RED BLOOD CELL COUNT(AUTO) 2.69 MIL/uL (4.5-6.0); WHITE BLOOD COUNT (AUTO) 13.7 K/uL (4.3-11.0)
[2022-03-13 08:00] VITALS: BP 114/69
[2022-03-13] MEDS: AMLODIPINE BESYLATE 10 MG TABLET GT SCH (09:07)
[2022-03-13] MEDS: ALLOPURINOL 100 MG TABLET GT SCH (09:07)
[2022-03-13] MEDS: PANTOPRAZOLE 40 MG/PACK PACK GT SCH (09:07)
[2022-03-13] MEDS: CARVEDILOL 3.125 MG TABLET GT SCH ×2 (09:08→16:35)
[2022-03-13] MEDS: HEPARIN SODIUM, PORCINE 5000 UNITS/1 ML VIAL SQ SCH ×2 (09:08→21:46)
[2022-03-13] MEDS: METOCLOPRAMIDE HCL 10 MG/2 ML VIAL IV SCH ×3 (09:08→16:35)
[2022-03-13] MEDS: ASPIRIN 81 MG TAB.CHEW GT SCH (09:10)
[2022-03-13 12:00] VITALS: BP 102/69
[2022-03-13] MEDS: IV D5/0.45 NACL 1,000 ML IV PRN (12:07)
[2022-03-13 16:00] VITALS: BP 106/74
[2022-03-13] MEDS: VANCOMYCIN 500 MG in IV D5W 100 ML IV SCH (16:29)
[2022-03-13] MEDS: NEPRO 1,000 ML BOTTLE GT SCH (17:29)
[2022-03-13 20:00] VITALS: BP 110/69
[2022-03-14] VITALS: BP 117/74
[2022-03-14] MEDS: BLOOD SUGAR DIAGNOSTIC 1 EACH STRIP IN SCH ×5 (01:14→23:58)
[2022-03-14] MEDS: INSULIN REGULAR, HUMAN 100 UNIT/ML 3 ML VIAL SQ PRN ×3 (01:15→18:13)
[2022-03-14] MEDS: IPRATROPIUM NEB FS 0.5 MG/2.5 ML AMPUL.NEB NEB SCH ×2 (02:17→07:32)
[2022-03-14] MEDS: LEVALBUTEROL HCL NEB 1.25 MG/0.5 ML VIAL.NEB NEB SCH ×2 (02:18→07:32)
[2022-03-14] MEDS: IV D5/0.45 NACL 1,000 ML IV PRN ×2 (02:28→16:49)
[2022-03-14 04:00] VITALS: BP 117/75
[2022-03-14 06:36] LABS: BASOPHILS % (AUTO) 0.4 % (0.0-2.0); EOSINOPHILS % (AUTO) 0.6 % (0.0-6.0); HEMATOCRIT 23 % (39-51); HEMOGLOBIN 7.3 g/dL (13.5-17.5); LYMPHOCYTES # (AUTO) 0.8 K/uL (0.8-4.8); LYMPHOCYTES % (AUTO) 8.9 % (20.0-44.0); MEAN CORPUSCULAR HGB CONC 33 g/dl (31.0-36.0); MEAN CORPUSCULAR VOLUME 92 fL (80-96); MONOCYTES # (AUTO) 0.6 K/uL (0.1-1.30); MONOCYTES % (AUTO) 6.1 % (2.0-12.0); NEUTROPHILS # (AUTO) 7.6 K/uL (1.8-8.9); PLATELET COUNT (AUTO) 376 K/uL (150-450); RED BLOOD CELL COUNT(AUTO) 2.46 MIL/uL (4.5-6.0)
[2022-03-14 06:58] LABS: CALCIUM, SERUM 9.2 mg/dL (8.5-10.1); CREATININE 2.6 mg/dL (0.6-1.3); MAGNESIUM 2.4 mg/dL (1.8-2.4); PHOSPHORUS 2.6 mg/dL (2.5-4.9); POTASSIUM 3.2 mmol/L (3.5-5.1)
--- NOTE | 2022-03-14 07:37 | NUR ---
RN CLOSING NOTE A/OX1, NODES, MUMBLES. ON HF 30l AT 40%. TITRATED DOWN TO 25L 40%. O2 SAT 100%. NO SOB NOTED. PATIENT SECRETIONS ARE VERY THICK CHEUNG/ YELLOW. ORAL CARE DONE. SINUS RHYTHM ON THE MONITOR. NO S/S PAIN NOTED. TURNED Q2, WOUND CARE DONE ORDERED. GT NO RESIDUAL, INCREASED NEPRO TO 50ML/HR. BLOOD SUGAR MONITOR. IVF RUNNING. GOFF CATH MAINTAINED. NO BM. PLAN OF CARE TO CONTINUE TO TITRATE O2 AT TOLERATED, ABX ORDERED.
--- NOTE | 2022-03-14 07:49 | NUR ---
RN OPENING NOTE PT IN BED AWAKE. A/O X 1, NO DISTRESS OR DISCOMFORT NOTED. NO S/S OF PAIN NOTED. ON HF 40L 50% FIO2 O2 SAT 100%. ON TELE. PT ON GT FEEDING 40 ML/HR, 0 ML RESIDUAL NOTED. YULIANA WITH MIDLINE INTACT AND PATENT. F/C INTACT AND PATENT DRAINING YELLOWISH COLOR URINE. ALL SAFETY MEASURES IN PLACE PER HOSPITAL POLICY.
[2022-03-14 08:00] VITALS: BP 123/75
[2022-03-14] MEDS: METOCLOPRAMIDE HCL 10 MG/2 ML VIAL IV SCH ×3 (08:27→16:52)
[2022-03-14] MEDS: PANTOPRAZOLE 40 MG/PACK PACK GT SCH (08:27)
[2022-03-14] MEDS: CARVEDILOL 3.125 MG TABLET GT SCH ×2 (08:28→16:53)
[2022-03-14] MEDS: ASPIRIN 81 MG TAB.CHEW GT SCH (08:28)
[2022-03-14] MEDS: AMLODIPINE BESYLATE 10 MG TABLET GT SCH (08:28)
[2022-03-14] MEDS: ALLOPURINOL 100 MG TABLET GT SCH (08:28)
[2022-03-14] MEDS: HEPARIN SODIUM, PORCINE 5000 UNITS/1 ML VIAL SQ SCH ×2 (08:31→22:00)
[2022-03-14 08:56] LABS: ALBUMIN 2.5 g/dL (3.4-5.0); BILIRUBIN,DIRECT 0.1 mg/dL (0.0-0.2); BILIRUBIN,TOTAL 0.1 mg/dL (0.2-1.0)
[2022-03-14 12:00] VITALS: BP 101/57
[2022-03-14] MEDS ORDERED: POTASSIUM CHLORIDE 20 MEQ POWDER PACKET GT ONE (12:00)
[2022-03-14 16:00] VITALS: BP 115/68
[2022-03-14] MEDS: LEVOFLOXACIN 500 MG /D5W 100ML 500 MG in PREMIX 1 EA IV SCH (16:51)
[2022-03-14] MEDS: NEPRO 1,000 ML BOTTLE GT SCH (18:03)
--- NOTE | 2022-03-14 18:42 | NUR ---
RN CLOSING NOTED AOX1, NODES, MUMBLES. ON HF 30l AT 40%. . O2 SAT 100%. NO SOB NOTED. PATIENT SECRETIONS ARE VERY THICK CHEUNG/ YELLOW. ORAL CARE DONE. SINUS RHYTHM ON THE MONITOR. NO S/S PAIN NOTED. TURNED Q2, WOUND CARE DONE ORDERED. GT NO RESIDUAL, INCREASED NEPRO TO 50ML/HR. BLOOD SUGAR MONITOR. IVF RUNNING. GOFF CATH MAINTAINED. NO BM. PLAN OF CARE TO CONTINUE TO TITRATE O2 AT TOLERATED, SAFETY MEASURES FOR HOSPITAL POLICY IN PLACE.
--- NOTE | 2022-03-14 19:40 | NUR ---
DEMETRIUS RN OPENING NOTE RECEIVED PT IN BED AWAKE. A/O X 1, NO DISTRESS OR DISCOMFORT NOTED. NO S/S OF PAIN NOTED. ON HF 40L 50% FIO2 O2 SAT 100%. ON TELE. PT ON GT FEEDING 50 ML/HR, 0 ML RESIDUAL NOTED. YULIANA WITH MIDLINE INTACT AND PATENT. RUNNING D5 1/2 NS AT 75 ML/HR, F/C INTACT AND PATENT DRAINING YELLOWISH COLOR URINE. NOTED WITH L HAND RESTRAINTS, ALL SAFETY MEASURES IN PLACE, BED IN LOWEST AND LOCKED POSITION, BED ALARM ON, WILL CONTINUE TO MONITOR THROUGHOUT THE SHIFT.
[2022-03-14 20:00] VITALS: BP 109/66
[2022-03-14] MEDS: ACETAMINOPHEN 325 MG TABLET MC PRN (23:58)
[2022-03-15] VITALS: BP 123/77
--- NOTE | 2022-03-15 | NUR ---
RN NOTE BS CHECKED AT 97 MG/DL, NO COVERAGE GIVEN PER SLIDING SCALE. WILL CONT TO MONITOR.
--- NOTE | 2022-03-15 03:45 | NUR ---
RN NOTE NOTED PT DESATING LOW 81%, CALLED RT, PT WAS SUCTION AND O2 SENSOR CHANGED. PT TOLERATED WELL NOW SATING 100% VIA HFNC AT 20L/MN
[2022-03-15 04:00] VITALS: BP 101/64
[2022-03-15] MEDS: IV D5/0.45 NACL 1,000 ML IV PRN ×2 (04:27→18:54)
[2022-03-15] MEDS: BLOOD SUGAR DIAGNOSTIC 1 EACH STRIP IN SCH ×3 (06:02→17:28)
[2022-03-15 06:37] LABS: BASOPHILS # (AUTO) 0.1 K/uL (0.0-0.2); BASOPHILS % (AUTO) 0.7 % (0.0-2.0); EOSINOPHILS % (AUTO) 1.1 % (0.0-6.0); HEMATOCRIT 23 % (39-51); HEMOGLOBIN 7.6 g/dL (13.5-17.5); LYMPHOCYTES # (AUTO) 0.9 K/uL (0.8-4.8); LYMPHOCYTES % (AUTO) 10.2 % (20.0-44.0); MEAN CORPUSCULAR HGB CONC 33 g/dl (31.0-36.0); MEAN CORPUSCULAR VOLUME 91 fL (80-96); MONOCYTES # (AUTO) 0.7 K/uL (0.1-1.30); MONOCYTES % (AUTO) 7.1 % (2.0-12.0); NEUTROPHILS # (AUTO) 7.5 K/uL (1.8-8.9); NEUTROPHILS % (AUTO) 80.9 % (43.0-81.0); PLATELET COUNT (AUTO) 407 K/uL (150-450); RED BLOOD CELL COUNT(AUTO) 2.57 MIL/uL (4.5-6.0); WHITE BLOOD COUNT (AUTO) 9.3 K/uL (4.3-11.0)
--- NOTE | 2022-03-15 06:42 | NUR ---
DEMETRIUS RN CLOSING NOTE PT REMAINS ON BED AWAKE. A/O X 1, NOT IN DISTRESS OR DISCOMFORT, NO S/S OF PAIN NOTED. ON HF 20L 50% FIO2 O2 SAT 100%. ON TELE. PT ON GT FEEDING 50 ML/HR, 0 ML RESIDUAL NOTED. YULIANA MIDLINE AND K HAND IV #22G INTACT AND PATENT RUNNING D5 1/2 NS AT 75 ML/HR, F/C INTACT AND PATENT DRAINING URINE TO GRAVITY. NOTED WITH L HAND RESTRAINTS, ALL DUE MEDS GIVEN, KEPT DRY AND CLEAN, ALL SAFETY MEASURES IN PLACE, BED IN LOWEST AND LOCKED POSITION, BED ALARM ON, WILL ENDORSE TO AM SHIFT NURSE FOR CONTINUITY OF CARE.
[2022-03-15 06:57] LABS: ALBUMIN 2.5 g/dL (3.4-5.0); BILIRUBIN,DIRECT 0.1 mg/dL (0.0-0.2); BILIRUBIN,TOTAL 0.2 mg/dL (0.2-1.0); CALCIUM, SERUM 9.5 mg/dL (8.5-10.1); CREATININE 2.4 mg/dL (0.6-1.3); MAGNESIUM 2.2 mg/dL (1.8-2.4); PHOSPHORUS 2.2 mg/dL (2.5-4.9); POTASSIUM 3.9 mmol/L (3.5-5.1); TOTAL PROTEIN, SERUM 6.9 g/dL (6.4-8.2)
--- NOTE | 2022-03-15 07:54 | NUR ---
rn notes received patient on HF 20l/40%, no acute respiratory distress, RT with the patient after breathing treatment patient now NC 4l fio2-99%. No residual, patient contracted, koo draining via gravity. hob elevaterd, assist turn and reposition q 2 hr. patient DNR, call light within to reach, will follow up.
[2022-03-15 08:00] VITALS: BP 132/74
[2022-03-15] MEDS: PANTOPRAZOLE 40 MG/PACK PACK GT SCH (09:54)
[2022-03-15] MEDS: METOCLOPRAMIDE HCL 10 MG/2 ML VIAL IV SCH ×3 (09:54→17:22)
[2022-03-15] MEDS: ASPIRIN 81 MG TAB.CHEW GT SCH (09:55)
[2022-03-15] MEDS: AMLODIPINE BESYLATE 10 MG TABLET GT SCH (09:55)
[2022-03-15] MEDS: ALLOPURINOL 100 MG TABLET GT SCH (09:55)
[2022-03-15] MEDS: HEPARIN SODIUM, PORCINE 5000 UNITS/1 ML VIAL SQ SCH ×2 (09:56→22:21)
[2022-03-15] MEDS: CARVEDILOL 3.125 MG TABLET GT SCH ×2 (10:14→17:22)
[2022-03-15 12:00] VITALS: BP 109/70
--- NOTE | 2022-03-15 15:00 | NUR ---
RN NOTES SEEN PATIENT VIA WOUND MD , NO NEW ORDER. DRESSING CHANGED ON RIGHT TOES.
[2022-03-15 16:00] VITALS: BP 118/78
[2022-03-15] MEDS ORDERED: NEUTRA PHOS 1 POWD.PACKET GT ONE (17:00)
[2022-03-15] MEDS: NEPRO 1,000 ML BOTTLE GT SCH (17:21)
--- NOTE | 2022-03-15 18:30 | NUR ---
RN NOtes Pm care is done, suction, mouth care, blood sugar 93 mg/bl, no coverage given, running feeding 50 ml/hr, patient tolerating well, infusing D5 1/2 at 75ml/hr, midline is intact, assisted turn and reposition every 2 hours, checked wrist restrain circulation Q2H. endorsed oncoming nurse follow plan of care.
--- NOTE | 2022-03-15 19:10 | NUR ---
RN OPENING NOTES PATIENT RECEIVED ON BED AWAKE, ON NASAL CANULA @ 4LPM, SATTING AT 96%, RESPIRATORY EVEN AND UNLABORED NO SOB NOTED, AFEBRILE, NO S/S OF DISTRESS NOTED. NOTED WITH YULIANA ML, FLUSHED WITH NS. RUNNING WITH D5 1/2NS @ 75 ML/HR. G-TUBE PATENT AND INTACT, VERIFIED PLACEMENT BY AUSCULTATION, NO RESIDUAL NOTED UPON ASPIRATION. RUNNING WITH NEPHRO @ 50 ML/HR. ON GOFF CATHETER PATENT, DRAINING WITH CLEAR YELLOW URINE VIA GRAVITY. NOTED WITH LEFT SOFT WRIST RESTRAINT, RELEASE AND REASSESS Q2H FOR CIRCULATION. ALL SAFETY MEASURE PROVIDED. BED IN LOWEST POSITION, LOCKED. CONTINUE TO MONITOR.
[2022-03-15 20:00] VITALS: BP 119/73
[2022-03-16] VITALS: BP 117/72
[2022-03-16] MEDS: BLOOD SUGAR DIAGNOSTIC 1 EACH STRIP IN SCH ×4 (00:23→17:27)
[2022-03-16] MEDS: INSULIN REGULAR, HUMAN 100 UNIT/ML 3 ML VIAL SQ PRN ×2 (00:24→05:54)
--- NOTE | 2022-03-16 00:24 | NUR ---
RN NOTES BLOOD SUGAR 112 mg/dL, NO INSULIN COVERAGE PER SLIDING SCALE, NO S/S OF HYPOGLYCEMIA NOTED.
[2022-03-16 04:00] VITALS: BP 121/75
--- NOTE | 2022-03-16 05:54 | NUR ---
RN NOTES BLOOD SUGAR 83 mg/dL, NO INSULIN COVERAGE PER SLIDING SCALE, NO S/S OF HYPOGLYCEMIA NOTED.
--- NOTE | 2022-03-16 07:10 | NUR ---
RN notes Received patient in bed. Facial expression is normal and not in distress. Spo2 100% with 5L oxygen given via NC. Telemetry showed SR with HR 750/min. Right UA midline is dry, intact and patent. Call navarro is placed within reach. Bed is locked and placed in the lowest position. All safety measures have been implemented. Will continue monitoring and care
[2022-03-16 07:32] LABS: BASOPHILS # (AUTO) 0.2 K/uL (0.0-0.2); BASOPHILS % (AUTO) 1.6 % (0.0-2.0); EOSINOPHILS % (AUTO) 2.2 % (0.0-6.0); HEMATOCRIT 23 % (39-51); HEMOGLOBIN 7.4 g/dL (13.5-17.5); LYMPHOCYTES % (AUTO) 10.4 % (20.0-44.0); MEAN CORPUSCULAR HGB CONC 32 g/dl (31.0-36.0); MEAN CORPUSCULAR VOLUME 92 fL (80-96); MONOCYTES # (AUTO) 0.6 K/uL (0.1-1.30); MONOCYTES % (AUTO) 6.6 % (2.0-12.0); NEUTROPHILS # (AUTO) 7.5 K/uL (1.8-8.9); NEUTROPHILS % (AUTO) 79.2 % (43.0-81.0); PLATELET COUNT (AUTO) 389 K/uL (150-450); RED BLOOD CELL COUNT(AUTO) 2.52 MIL/uL (4.5-6.0); WHITE BLOOD COUNT (AUTO) 9.5 K/uL (4.3-11.0)
[2022-03-16 07:40] LABS: CALCIUM, SERUM 8.2 mg/dL (8.5-10.1); CREATININE 1.8 mg/dL (0.6-1.3); MAGNESIUM 1.8 mg/dL (1.8-2.4); PHOSPHORUS 2.1 mg/dL (2.5-4.9); POTASSIUM 3.2 mmol/L (3.5-5.1)
[2022-03-16 08:00] VITALS: BP 124/86
--- NOTE | 2022-03-16 08:00 | NUR ---
RN notes Noted good oxygen saturation with 5L oxygen, reduced oxygen to 4L via NC. Will monitor Spo2.
--- NOTE | 2022-03-16 08:00 | NUR ---
lulú grover note reordered glucose level to due to blood sugar 105 mg\dl Addendum: 03/16/22 at 1110 by NATHAN JOSE RN correction blood sugar 406
[2022-03-16 08:01] LABS: ALBUMIN 2.2 g/dL (3.4-5.0); BILIRUBIN,DIRECT 0.1 mg/dL (0.0-0.2); BILIRUBIN,TOTAL 0.2 mg/dL (0.2-1.0); TOTAL PROTEIN, SERUM 6.2 g/dL (6.4-8.2)
[2022-03-16] MEDS: ASPIRIN 81 MG TAB.CHEW GT SCH (08:43)
[2022-03-16] MEDS: PANTOPRAZOLE 40 MG/PACK PACK GT SCH (08:43)
[2022-03-16] MEDS: ALLOPURINOL 100 MG TABLET GT SCH (08:43)
[2022-03-16] MEDS: AMLODIPINE BESYLATE 10 MG TABLET GT SCH (08:43)
[2022-03-16] MEDS: METOCLOPRAMIDE HCL 10 MG/2 ML VIAL IV SCH ×3 (08:44→17:26)
[2022-03-16] MEDS: CARVEDILOL 3.125 MG TABLET GT SCH ×2 (08:44→17:27)
[2022-03-16] MEDS: HEPARIN SODIUM, PORCINE 5000 UNITS/1 ML VIAL SQ SCH ×2 (08:51→20:48)
[2022-03-16] MEDS: IV D5/0.45 NACL 1,000 ML IV PRN (09:41)
[2022-03-16] MEDS ORDERED: NEUTRA PHOS 1 POWD.PACKET GT ONE (10:00)
--- NOTE | 2022-03-16 10:00 | NUR ---
Rn notes SpO2 100% with 4L oxygen via NC, NO SOB noted. Decreased oxygen to 2L.
[2022-03-16] MEDS: POTASSIUM CL. PREMIX PERIPHER. 50 ML IV SCH ×3 (10:46→12:26)
--- NOTE | 2022-03-16 11:10 | NUR ---
lulú rn note glucose level 87 mg\dl ,will f\u cont on ivf and g tube feeding
[2022-03-16 12:00] VITALS: BP 120/77
--- NOTE | 2022-03-16 14:00 | NUR ---
RN notes Tail down oxygen to room air. Spo2 98%. No SOB noted.
[2022-03-16 16:00] VITALS: BP 129/80
[2022-03-16] MEDS: NEPRO 1,000 ML BOTTLE GT SCH ×2 (16:22→16:29)
[2022-03-16] MEDS: LEVOFLOXACIN 500 MG /D5W 100ML 500 MG in PREMIX 1 EA IV SCH (17:27)
--- NOTE | 2022-03-16 17:51 | NUR ---
lulú rn note patient now more moves more rt arm ,at risk to remove all lines ,per dr sewell ok to place soft restrain on rt arm and remove on lt arm, order carried out
--- NOTE | 2022-03-16 18:30 | NUR ---
RN notes Nasal swab for COVID 19 is collected and sent to lab.
--- NOTE | 2022-03-16 18:51 | NUR ---
RN notes Patient is resting in bed without active complaint. Telemetry showed SR with HR 74/min. IV site is dry and intact. G-tube running at 50mL/hr. Call navarro is placed within reach. Bed is locked and placed in the lowest position. All safety measures have been implemented. Will endorse PM nurse to continue monitoring and care.
[2022-03-16 20:00] VITALS: BP 110/71
--- NOTE | 2022-03-16 20:00 | NUR ---
DEMETRIUS RN OPENING NOTES RECEIVED PTS IN BED AWAKE, ALERTX 1 , ON R/A SATING 98% V/S STABLE AFEBRILE NO SOB NO DISTRESS NOTED RESPIRATORY EVEN AND UNLABORED NO SOB NOTED. NOTED WITH YULIANA ML, FLUSHED WITH NS. RUNNING WITH D5 1/2NS @ 75 ML/HR. G-TUBE PATENT AND INTACT, VERIFIED PLACEMENT BY AUSCULTATION, NO RESIDUAL NOTED UPON ASPIRATION. RUNNING WITH NEPHRO @ 50 ML/HR. ON GOFF CATHETER PATENT, DRAINING WITH CLEAR YELLOW URINE VIA GRAVITY. NOTED WITH RIGHT SOFT WRIST RESTRAINT, RELEASE AND REASSESS Q2H FOR CIRCULATION. ALL DUE MEDS GIVEN ORDER NO ASE NOTED ALL SAFETY MEASURE PROVIDED. BED IN LOWEST POSITION, LOCKED. CONTINUE TO MONITOR.
[2022-03-17] VITALS: BP 118/73
[2022-03-17] MEDS: INSULIN REGULAR, HUMAN 100 UNIT/ML 3 ML VIAL SQ PRN ×3 (01:08→23:49)
[2022-03-17] MEDS: BLOOD SUGAR DIAGNOSTIC 1 EACH STRIP IN SCH ×5 (01:09→23:49)
--- NOTE | 2022-03-17 01:10 | NUR ---
lulú rn notes Blood sugar for 12mn is 98 no coverage given per sliding scale pts on gtfeeding
[2022-03-17 04:00] VITALS: BP 118/79
[2022-03-17] MEDS: NEPRO 1,000 ML BOTTLE GT SCH (05:44)
[2022-03-17] MEDS: IV D5/0.45 NACL 1,000 ML IV PRN ×2 (06:03→20:08)
--- NOTE | 2022-03-17 06:06 | NUR ---
lulú rn notes Blood sugar at 6am is 89mg/dl no insulin coveragre given per sliding scale
--- NOTE | 2022-03-17 07:04 | NUR ---
lulú rn notes Pts remains in bed r/a sating 99% no sob no distress noted , for possible discharge today , will endorse to rn day shift for continuity of care.
--- NOTE | 2022-03-17 07:15 | NUR ---
RN NOTES RECEIVED PT ON BED, ALERT/ DOES NOT FOLLOW COMMAND, ON RA, O2 SAT WNL, ON TELE SR HR IN 80'S , TF AT 50CC/HR RUNNING , IV SITE CDI, SR UP x3, CALL LIGHT WITHIN EASY REACH, BED LOCKED AND IN LOWEST POSITION, CONTINUE TO MONITOR.
[2022-03-17 07:56] LABS: BASOPHILS # (AUTO) 0.1 K/uL (0.0-0.2); BASOPHILS % (AUTO) 0.9 % (0.0-2.0); EOSINOPHILS % (AUTO) 3.6 % (0.0-6.0); HEMATOCRIT 23 % (39-51); HEMOGLOBIN 7.6 g/dL (13.5-17.5); LYMPHOCYTES # (AUTO) 1.1 K/uL (0.8-4.8); LYMPHOCYTES % (AUTO) 14.4 % (20.0-44.0); MEAN CORPUSCULAR HGB CONC 33 g/dl (31.0-36.0); MEAN CORPUSCULAR VOLUME 90 fL (80-96); MONOCYTES # (AUTO) 0.7 K/uL (0.1-1.30); MONOCYTES % (AUTO) 9.1 % (2.0-12.0); NEUTROPHILS # (AUTO) 5.4 K/uL (1.8-8.9); PLATELET COUNT (AUTO) 434 K/uL (150-450); RED BLOOD CELL COUNT(AUTO) 2.58 MIL/uL (4.5-6.0); WHITE BLOOD COUNT (AUTO) 7.6 K/uL (4.3-11.0)
[2022-03-17 08:00] VITALS: BP 128/88
[2022-03-17] MEDS: ASPIRIN 81 MG TAB.CHEW GT SCH (08:57)
[2022-03-17] MEDS: ALLOPURINOL 100 MG TABLET GT SCH (08:57)
[2022-03-17] MEDS: AMLODIPINE BESYLATE 10 MG TABLET GT SCH (08:59)
[2022-03-17] MEDS: CARVEDILOL 3.125 MG TABLET GT SCH ×2 (09:00→16:49)
[2022-03-17] MEDS: METOCLOPRAMIDE HCL 10 MG/2 ML VIAL IV SCH ×3 (09:00→16:49)
[2022-03-17] MEDS: PANTOPRAZOLE 40 MG/PACK PACK GT SCH (09:00)
[2022-03-17] MEDS: HEPARIN SODIUM, PORCINE 5000 UNITS/1 ML VIAL SQ SCH ×2 (09:01→20:12)
[2022-03-17 11:01] LABS: ALBUMIN 2.3 g/dL (3.4-5.0); BILIRUBIN,DIRECT 0.1 mg/dL (0.0-0.2); BILIRUBIN,TOTAL 0.2 mg/dL (0.2-1.0); CALCIUM, SERUM 9.1 mg/dL (8.5-10.1); CREATININE 1.8 mg/dL (0.6-1.3); MAGNESIUM 1.7 mg/dL (1.8-2.4); PHOSPHORUS 2.4 mg/dL (2.5-4.9); POTASSIUM 3.7 mmol/L (3.5-5.1); TOTAL PROTEIN, SERUM 6.4 g/dL (6.4-8.2)
[2022-03-17 12:00] VITALS: BP 107/67
[2022-03-17 16:00] VITALS: BP 117/76
[2022-03-17] MEDS ORDERED: NEUTRA PHOS 1 POWD.PACKET GT ONE (16:00)
--- NOTE | 2022-03-17 17:00 | NUR ---
RN NOTES O2 SAT IN MID 80'S, PT CONGESTED, NT SUCTIONING DONE, O2 SAT UP TO HIGH 90'S AFTER SUCTIONING , PT PLACED ON 2L O2 N/C . CONTINUE TO MONITOR
--- NOTE | 2022-03-17 18:00 | NUR ---
RN NOTES PT AT REST , WILL ENDORSE TO CNC MACHINE SETTER NURSE FOR CONTINUITY OF CARE
[2022-03-17 20:00] VITALS: BP 114/75
--- NOTE | 2022-03-17 20:00 | NUR ---
DEMETRIUS RN OPENING NOTES RECEIVED PTS IN BED AWAKE, ALERTX 1 , ON 2 LITERS 02 VIA NC SATING 98% V/S STABLE AFEBRILE NO SOB NO DISTRESS NOTED RESPIRATORY EVEN AND UNLABORED NO SOB NOTED. NOTED WITH YULIANA ML, FLUSHED WITH NS. RUNNING WITH D5 1/2NS @ 75 ML/HR. G-TUBE PATENT AND INTACT, VERIFIED PLACEMENT BY AUSCULTATION, NO RESIDUAL NOTED UPON ASPIRATION. RUNNING WITH NEPHRO @ 50 ML/HR. ON GOFF CATHETER PATENT, DRAINING WITH CLEAR YELLOW URINE VIA GRAVITY. NOTED WITH RIGHT SOFT WRIST RESTRAINT, RELEASE AND REASSESS Q2H FOR CIRCULATION. ALL DUE MEDS GIVEN ORDER NO ASE NOTED ALL SAFETY MEASURE PROVIDED. BED IN LOWEST POSITION, LOCKED. CONTINUE TO MONITOR. Addendum: 03/18/22 at 2019 by HAWA GREEN RN TELE STATUS NOT DEMETRIUS STATUS
[2022-03-18] VITALS: BP 126/80
[2022-03-18 04:00] VITALS: BP 115/82
[2022-03-18] MEDS: INSULIN REGULAR, HUMAN 100 UNIT/ML 3 ML VIAL SQ PRN ×2 (05:42→23:17)
[2022-03-18] MEDS: BLOOD SUGAR DIAGNOSTIC 1 EACH STRIP IN SCH ×4 (05:42→23:18)
--- NOTE | 2022-03-18 05:45 | NUR ---
ROUND KILN DRAWER NOTES BLOOD SUGAR AT 6AM IS 97MG/DL NO COVERAGE GIVEN PER SLIDING KORI
--- NOTE | 2022-03-18 06:20 | NUR ---
e learning specialist notes Pts remains in bed 0N 2 LITERS 02 VIA NC sating 99% no sob no distress noted , for possible discharge today , will endorse to rn day shift for continuity of care.
[2022-03-18 06:55] LABS: BASOPHILS # (AUTO) 0.1 K/uL (0.0-0.2); EOSINOPHILS % (AUTO) 2.6 % (0.0-6.0); HEMATOCRIT 28 % (39-51); HEMOGLOBIN 9.1 g/dL (13.5-17.5); LYMPHOCYTES # (AUTO) 1.5 K/uL (0.8-4.8); LYMPHOCYTES % (AUTO) 14.8 % (20.0-44.0); MEAN CORPUSCULAR HGB CONC 33 g/dl (31.0-36.0); MEAN CORPUSCULAR VOLUME 92 fL (80-96); MONOCYTES # (AUTO) 0.7 K/uL (0.1-1.30); MONOCYTES % (AUTO) 7.2 % (2.0-12.0); NEUTROPHILS # (AUTO) 7.4 K/uL (1.8-8.9); NEUTROPHILS % (AUTO) 74.4 % (43.0-81.0); PLATELET COUNT (AUTO) 478 K/uL (150-450); RED BLOOD CELL COUNT(AUTO) 3.07 MIL/uL (4.5-6.0); WHITE BLOOD COUNT (AUTO) 9.9 K/uL (4.3-11.0)
[2022-03-18 07:16] LABS: CALCIUM, SERUM 9.1 mg/dL (8.5-10.1); CREATININE 1.6 mg/dL (0.6-1.3); MAGNESIUM 1.9 mg/dL (1.8-2.4); PHOSPHORUS 3.9 mg/dL (2.5-4.9); POTASSIUM 3.9 mmol/L (3.5-5.1)
--- NOTE | 2022-03-18 07:26 | NUR ---
AQUATIC PERFORMER OPENING NOTES: RECEIVED PATIENT IN BED ASLEEP BUT EASILY AROUSES TO VERBAL AND TACTILE STIMULI. PATIENT IS NON-VERBAL BUT RESPONDS TO NAME WHEN CALLED. NO RESPIRATORY DISTRESS NOTED AT THIS TIME, BREATHING EVEN AND UNLABORED, ON OXYGEN SATURATION OF 100% ON OXYGEN @ 2L/MIN VIA N/C. ON SR ON TELE MONITOR WITH HR OF 78. IV ACCESS ON RIGHT UPPER ARM MIDLINE, INTACT, PATENT AND INFUSING WITH IVF OF D5 1/2 NS @ 75 ML/HR. NO S/S INFILTRATION NOTED ON THE IV SITE. CALL LIGHT WITHIN REACH. BED LOCKED AND IN LOWEST POSITION. HOB KEPT ELEVATED. ALL SAFETY MEASURES IN PLACE. WILL CONTINUE TO MONITOR PATIENT THROUGHOUT SHIFT.
[2022-03-18 08:00] VITALS: BP 135/81
[2022-03-18] MEDS: METOCLOPRAMIDE HCL 10 MG/2 ML VIAL IV SCH ×3 (08:12→16:07)
[2022-03-18] MEDS: HEPARIN SODIUM, PORCINE 5000 UNITS/1 ML VIAL SQ SCH ×2 (08:12→21:10)
[2022-03-18] MEDS: PANTOPRAZOLE 40 MG/PACK PACK GT SCH (08:12)
[2022-03-18] MEDS: ALLOPURINOL 100 MG TABLET GT SCH (08:12)
[2022-03-18] MEDS: CARVEDILOL 3.125 MG TABLET GT SCH ×2 (08:13→16:08)
[2022-03-18] MEDS: ASPIRIN 81 MG TAB.CHEW GT SCH (08:13)
[2022-03-18] MEDS: AMLODIPINE BESYLATE 10 MG TABLET GT SCH (08:14)
[2022-03-18] MEDS: IV D5/0.45 NACL 1,000 ML IV PRN (10:32)
[2022-03-18] MEDS: NEPRO 1,000 ML BOTTLE GT SCH (10:33)
[2022-03-18] MEDS: ACETAMINOPHEN 325 MG TABLET MC PRN (10:48)
[2022-03-18 12:00] VITALS: BP 130/51
[2022-03-18 16:00] VITALS: BP 115/80
--- NOTE | 2022-03-18 18:55 | NUR ---
MAINTENANCE DEPARTMENT MANAGER CLOSING NOTES: PATIENT IN BED, AWAKE BUT NONVERBAL. ON RA WITH OXYGEN SATURATION ON 97%. ON SR ON TELE MONITOR WITH HR OF 83. PATIENT REMAINS STABLE THE ENTIRE SHIFT. IV SITE INTACT, INFUSING WITH D5 1/2 NS @ 75 ML/HR, SITE WITH NO S/S INFILTRATION NOTED. G-TUBE ON HOLD PER MD'S ORDER, G-TUBE PATENT, IN PLACE, NO RESIDUAL AND FLUSHES WELL. EMPTIED 700 ML OF YELLOW COLORED URINE. HOB KEPT ELEVATED. ALL NEEDS MET AND ANTICIPATED. BED LOCKED AND IN LOWEST POSITION. WILL ENDORSE TO NEXT SHIFT NURSE FOR CONTINUITY OF CARE.
[2022-03-18 20:00] VITALS: BP 124/76
--- NOTE | 2022-03-18 20:09 | NUR ---
IRRIGATION PUMP INSTALLER OPENING NOTES RECEIVED PTS IN BED AWAKE, ALERTX 1 , ON R/A SATING 98% V/S STABLE AFEBRILE NO SOB NO DISTRESS NOTED RESPIRATORY EVEN AND UNLABORED NO SOB NOTED. NOTED WITH YULIANA ML, FLUSHED WITH NS. RUNNING WITH D5 1/2NS @ 75 ML/HR. G-TUBE PATENT AND INTACT, VERIFIED PLACEMENT BY AUSCULTATION, NO RESIDUAL NOTED UPON ASPIRATION. RUNNING WITH NEPHRO @ 50 ML/HR. ON AT 9PM TONITE .ON GOFF CATHETER PATENT, DRAINING WITH CLEAR YELLOW URINE VIA GRAVITY. NOTED WITH RIGHT SOFT WRIST RESTRAINT, RELEASE AND REASSESS Q2H FOR CIRCULATION. ALL DUE MEDS GIVEN ORDER NO ASE NOTED ALL SAFETY MEASURE PROVIDED. BED IN LOWEST POSITION, LOCKED. CONTINUE TO MONITOR.
--- NOTE | 2022-03-18 23:20 | NUR ---
SECRETARY BOOKKEEPER NOTES Blood sugar at 12mn is 94mg/dl no coverage given per sliding scale pts on gt feeding
[2022-03-19] VITALS: BP 121/87
[2022-03-19 04:00] VITALS: BP 130/76
[2022-03-19] MEDS: IV D5/0.45 NACL 1,000 ML IV PRN ×2 (04:27→17:31)
[2022-03-19] MEDS: INSULIN REGULAR, HUMAN 100 UNIT/ML 3 ML VIAL SQ PRN (05:12)
[2022-03-19] MEDS: BLOOD SUGAR DIAGNOSTIC 1 EACH STRIP IN SCH ×3 (05:13→17:32)
--- NOTE | 2022-03-19 05:15 | NUR ---
television service engineer notes blood sugar at 6am is 104mg/dl no coverage given per sliding scale pts on gt feeding
--- NOTE | 2022-03-19 06:28 | NUR ---
rn transfer notes Pts remains in bed 0N r/a sating 99% no sob no distress noted , will endorse to rn day shift for continuity of care.
--- NOTE | 2022-03-19 07:30 | NUR ---
LAW ENFORCEMENT OFFICER AM NOTES PT IN BED, AO X 1, BLANK STARE, ON R/A, O2 SAT >97%. NO DISTRESS, NO SOB, RESPIRATION UNLABORED. SR ON MONITOR. NO SIGNS OF PAIN. NO GRIMACINGS. YULIANA ML, WITH D5 1/2NS @ 75 ML/HR INFUSING WELL. G-TUBE PATENT AND INTACT, VERIFIED PLACEMENT BY AUSCULTATION, NO RESIDUAL NOTED UPON ASPIRATION. RUNNING WITH NEPHRO @ 50 ML/HR X 20 HRS. ON AT 9PM TONITE OFF 1700 .ON GOFF CATHETER PATENT, DRAINING WITH CLEAR YELLOW URINE VIA GRAVITY. NOTED WITH RIGHT SOFT WRIST RESTRAINT, RELEASE AND REASSESS Q2H FOR CIRCULATION. THEN Q [address] MEASURE [address] PL[address]. BED IN LOWEST POSITION, LOCKED. WILL CONTINUE TO MONITOR.
[2022-03-19 08:00] VITALS: BP 114/70
[2022-03-19 08:24] LABS: BASOPHILS # (AUTO) 0.1 K/uL (0.0-0.2); BASOPHILS % (AUTO) 0.7 % (0.0-2.0); EOSINOPHILS % (AUTO) 3.4 % (0.0-6.0); HEMATOCRIT 23 % (39-51); LYMPHOCYTES # (AUTO) 1.3 K/uL (0.8-4.8); LYMPHOCYTES % (AUTO) 15.8 % (20.0-44.0); MEAN CORPUSCULAR HGB CONC 35 g/dl (31.0-36.0); MEAN CORPUSCULAR VOLUME 89 fL (80-96); MONOCYTES # (AUTO) 0.6 K/uL (0.1-1.30); MONOCYTES % (AUTO) 7.9 % (2.0-12.0); NEUTROPHILS % (AUTO) 72.2 % (43.0-81.0); PLATELET COUNT (AUTO) 418 K/uL (150-450); RED BLOOD CELL COUNT(AUTO) 2.62 MIL/uL (4.5-6.0); WHITE BLOOD COUNT (AUTO) 8.3 K/uL (4.3-11.0)
[2022-03-19 08:35] LABS: CALCIUM, SERUM 8.7 mg/dL (8.5-10.1); CREATININE 1.6 mg/dL (0.6-1.3); MAGNESIUM 1.8 mg/dL (1.8-2.4); POTASSIUM 3.5 mmol/L (3.5-5.1)
[2022-03-19] MEDS: METOCLOPRAMIDE HCL 10 MG/2 ML VIAL IV SCH ×3 (09:09→17:32)
[2022-03-19] MEDS: PANTOPRAZOLE 40 MG/PACK PACK GT SCH (09:10)
[2022-03-19] MEDS: HEPARIN SODIUM, PORCINE 5000 UNITS/1 ML VIAL SQ SCH (09:10)
[2022-03-19] MEDS: CARVEDILOL 3.125 MG TABLET GT SCH ×2 (09:10→17:32)
[2022-03-19] MEDS: AMLODIPINE BESYLATE 10 MG TABLET GT SCH (09:11)
[2022-03-19] MEDS: ASPIRIN 81 MG TAB.CHEW GT SCH (09:11)
[2022-03-19] MEDS: ALLOPURINOL 100 MG TABLET GT SCH (09:11)
--- NOTE | 2022-03-19 09:30 | NUR ---
RN NOTES DUE MEDS GIVEN
[2022-03-19] MEDS: NEPRO 1,000 ML BOTTLE GT SCH (11:41)
[2022-03-19 12:00] VITALS: BP 106/75
[2022-03-19 16:00] VITALS: BP 110/70
--- NOTE | 2022-03-19 18:46 | NUR ---
AUTOMATION TENDER CLOSING NOTES PT IN BED RESTING, AO X 1, BLANK STARE, ON R/A, O2 SAT >97%. NO DISTRESS, NO SOB, RESPIRATION UNLABORED. SR ON MONITOR. NO SIGNS OF PAIN. NO GRIMACINGS. YULIANA ML, WITH D5 1/2NS @ 75 ML/HR INFUSING WELL. G-TUBE PATENT AND INTACT, VERIFIED PLACEMENT BY AUSCULTATION, NO RESIDUAL NOTED UPON ASPIRATION. RUNNING WITH NEPHRO @ 50 ML/HR X 20 HRS. ON AT 9PM TONITE OFF 1700 .ON GOFF CATHETER PATENT, DRAINING WITH CLEAR YELLOW URINE VIA GRAVITY. NOTED WITH RIGHT SOFT WRIST RESTRAINT, RELEASE AND REASSESS Q2H FOR CIRCULATION. THEN Q [address] MEASURE [address] PLACE. BED IN LOWEST POSITION, LOCKED. WILL ENDORSE TO NEXT SHIFT FOR JIMY ALL NEEDS MET FOR NOW. PM CARE DONE EARLIER. NO OTHER SIGNIFICANT CHANGE IN CONDITION.
--- NOTE | 2022-03-19 19:20 | NUR ---
BUSINESS BANKING SALES ASSISTANT OPEN NOTE: AWAKE, NON VERBAL. ON TELE MONITOR AND A READING OF SINUS RHYTHM 74. GT IN PLACE PATENT NO RESIDUAL. GOFF CATHETER IN PLACE WITH YELLOW URINE. IVF OF D5 1/2 NS AT 75 ML/HR. ASPIRATION PRECAUTIONS MAINTAINED. BILATERAL HALF SIDE RAILS UPX2. HOB ELEVATED SEMI FOWLERS POSITION. BED IN LOW POSITION, LOCKED, BED EXIT ALARM ON. CALL LIGHT IN REACH.
[2022-03-19 20:00] VITALS: BP 125/65
[2022-03-20] VITALS: BP 114/78
[2022-03-20] MEDS: BLOOD SUGAR DIAGNOSTIC 1 EACH STRIP IN SCH ×4 (01:02→17:02)
[2022-03-20 04:00] VITALS: BP 113/72
[2022-03-20] MEDS: ACETAMINOPHEN 325 MG TABLET MC PRN (05:39)
[2022-03-20] MEDS: IV D5/0.45 NACL 1,000 ML IV PRN ×2 (06:05→21:03)
--- NOTE | 2022-03-20 06:50 | NUR ---
CREDIT SPECIALIST CLOSING NOTE: AWAKE, NON VERBAL. ON TELE MONITOR AND A READING OF SINUS RHYTHM 94. GT IN PLACE PATENT NO RESIDUAL. GOFF CATHETER IN PLACE WITH YELLOW URINE. IVF OF D5 1/2 NS AT 75 ML/HR. ASPIRATION PRECAUTIONS MAINTAINED. TURNED AND REPOSITION. WOUND CARE PROVIDED ORDERED. TYLENOL GIVEN ORDERED FOR PAIN AND EFFECTIVE. BILATERAL HALF SIDE RAILS UPX2. HOB ELEVATED SEMI FOWLERS POSITION. BED IN LOW POSITION, LOCKED, BED EXIT ALARM ON. CALL LIGHT IN REACH.
[2022-03-20 07:24] LABS: BASOPHILS # (AUTO) 0.1 K/uL (0.0-0.2); BASOPHILS % (AUTO) 0.7 % (0.0-2.0); EOSINOPHILS % (AUTO) 2.2 % (0.0-6.0); HEMATOCRIT 28 % (39-51); HEMOGLOBIN 8.9 g/dL (13.5-17.5); LYMPHOCYTES # (AUTO) 1.8 K/uL (0.8-4.8); LYMPHOCYTES % (AUTO) 14.2 % (20.0-44.0); MEAN CORPUSCULAR HGB CONC 31 g/dl (31.0-36.0); MEAN CORPUSCULAR VOLUME 93 fL (80-96); MONOCYTES # (AUTO) 1.4 K/uL (0.1-1.30); MONOCYTES % (AUTO) 10.6 % (2.0-12.0); NEUTROPHILS # (AUTO) 9.4 K/uL (1.8-8.9); NEUTROPHILS % (AUTO) 72.3 % (43.0-81.0); PLATELET COUNT (AUTO) 382 K/uL (150-450); RED BLOOD CELL COUNT(AUTO) 3.04 MIL/uL (4.5-6.0)
[2022-03-20 08:00] VITALS: BP 124/81
[2022-03-20 08:01] LABS: CALCIUM, SERUM 8.9 mg/dL (8.5-10.1); CREATININE 1.5 mg/dL (0.6-1.3); MAGNESIUM 1.8 mg/dL (1.8-2.4); PHOSPHORUS 3.6 mg/dL (2.5-4.9); POTASSIUM 4.4 mmol/L (3.5-5.1)
[2022-03-20] MEDS: PANTOPRAZOLE 40 MG/PACK PACK GT SCH (08:28)
[2022-03-20] MEDS: ASPIRIN 81 MG TAB.CHEW GT SCH (08:28)
[2022-03-20] MEDS: CARVEDILOL 3.125 MG TABLET GT SCH ×2 (08:29→16:52)
[2022-03-20] MEDS: ALLOPURINOL 100 MG TABLET GT SCH (08:30)
[2022-03-20] MEDS: METOCLOPRAMIDE HCL 10 MG/2 ML VIAL IV SCH ×3 (08:30→16:51)
[2022-03-20] MEDS: AMLODIPINE BESYLATE 10 MG TABLET GT SCH (08:30)
[2022-03-20 08:38] LABS: ALBUMIN 2.4 g/dL (3.4-5.0); BILIRUBIN,DIRECT 0.1 mg/dL (0.0-0.2); BILIRUBIN,TOTAL 0.1 mg/dL (0.2-1.0); TOTAL PROTEIN, SERUM 6.4 g/dL (6.4-8.2)
[2022-03-20 09:17] LABS: BAND % (MANUAL) 8 % (0.0-5.0); EOSINOPHILS % (MANUAL) 2 % (0-4); LYMPHOCYTES % (MANUAL) 15 % (16-48); METAMYELOCYTES % 2 % (0-0); MONOCYTES % (MANUAL) 6 % (0-11.0); MYELOCYTES % 2 % (0-0); NEUTROPHILS % (MANUAL) 65 (42-76)
[2022-03-20 12:00] VITALS: BP 116/71
[2022-03-20 16:00] VITALS: BP 114/61
--- NOTE | 2022-03-20 18:43 | NUR ---
RN NOTES NO SIGNIFCANT CHANGES NOTED ON THIS SHIFT, WILL ENDORSE TO RETAIL MARKETING MANAGER NURSE FOR CONTINUITY OF CARE
[2022-03-20 20:00] VITALS: BP 137/69
[2022-03-20] MEDS: NEPRO 1,000 ML BOTTLE GT SCH (21:04)
--- NOTE | 2022-03-20 21:10 | NUR ---
RN NOTE PT RESPONDS TO STIMULI, NONVERBAL. NO SIGNS OF DISTRESS NOTED. TOLERATES ROOM AIR. GT PATENT AND IN PLACE. NO RESIDUALS NOTED. GT FEEDING NEPRO AT 50ML/HR STARTED ORDERED TO RUN FOR 20HRS. HOB ELEVATED. YULIANA ML PATENT AND INTACT, D51/2NS RUNNING. GOFF DRAINING CLEAR URINE OUTPUT. WRIST RESTRAINTS ON DUE TO PT PULLING OUT TUBINGS, GOOD CIRCULATION. ALL SAFETY MEASURES IN PLACE. WILL CONTINUE TO MONITOR.
[2022-03-21] VITALS: BP 136/72
[2022-03-21] MEDS: BLOOD SUGAR DIAGNOSTIC 1 EACH STRIP IN SCH ×4 (00:25→17:08)
[2022-03-21 04:00] VITALS: BP 129/85
--- NOTE | 2022-03-21 06:59 | NUR ---
RN NOTE NO SIGNIFICANT CHANGES NOTED DURINGSHIFT. PTTOLERATES GT FEEDING WITH NO RESIDUALS NOTED.KEPT HOB ELEVATED. ADEQUATE AMOUNT OF URINE OUTPUT. REMAIN AFEBRILE. ENDORSED TO AM SHIFT NURSE FOR JIMY.
--- NOTE | 2022-03-21 07:10 | NUR ---
RN NOTES RECEIVED PT ON BED, ALERT/ DOES NOT FOLLOW COMMAND, ON RA, O2 SAT WNL, ON TELE SR HR IN 90'S , TF AT 50CC/HR RUNNING , NO RESIDUAL NOTED, IV SITE CDI, SR UP x3, CALL LIGHT WITHIN EASY REACH, BED LOCKED AND IN LOWEST POSITION, CONTINUE TO MONITOR.
[2022-03-21 07:34] LABS: BASOPHILS # (AUTO) 0.1 K/uL (0.0-0.2); BASOPHILS % (AUTO) 0.6 % (0.0-2.0); EOSINOPHILS % (AUTO) 2.3 % (0.0-6.0); HEMATOCRIT 24 % (39-51); LYMPHOCYTES # (AUTO) 1.3 K/uL (0.8-4.8); LYMPHOCYTES % (AUTO) 12.1 % (20.0-44.0); MEAN CORPUSCULAR HGB CONC 33 g/dl (31.0-36.0); MEAN CORPUSCULAR VOLUME 91 fL (80-96); MONOCYTES # (AUTO) 0.7 K/uL (0.1-1.30); MONOCYTES % (AUTO) 6.1 % (2.0-12.0); NEUTROPHILS # (AUTO) 8.5 K/uL (1.8-8.9); NEUTROPHILS % (AUTO) 78.9 % (43.0-81.0); PLATELET COUNT (AUTO) 384 K/uL (150-450); RED BLOOD CELL COUNT(AUTO) 2.68 MIL/uL (4.5-6.0); WHITE BLOOD COUNT (AUTO) 10.8 K/uL (4.3-11.0)
[2022-03-21 08:00] VITALS: BP 111/73
[2022-03-21 08:14] LABS: ALBUMIN 2.4 g/dL (3.4-5.0); BILIRUBIN,TOTAL 0.1 mg/dL (0.2-1.0); CREATININE 1.5 mg/dL (0.6-1.3); MAGNESIUM 1.8 mg/dL (1.8-2.4); PHOSPHORUS 3.2 mg/dL (2.5-4.9); POTASSIUM 3.3 mmol/L (3.5-5.1); TOTAL PROTEIN, SERUM 6.2 g/dL (6.4-8.2)
[2022-03-21 08:30] LABS: BILIRUBIN,DIRECT 0.1 mg/dL (0.0-0.2)
[2022-03-21] MEDS: ALLOPURINOL 100 MG TABLET GT SCH (09:04)
[2022-03-21] MEDS: PANTOPRAZOLE 40 MG/PACK PACK GT SCH (09:04)
[2022-03-21] MEDS: METOCLOPRAMIDE HCL 10 MG/2 ML VIAL IV SCH ×3 (09:04→16:05)
[2022-03-21] MEDS: CARVEDILOL 3.125 MG TABLET GT SCH ×2 (09:05→16:04)
[2022-03-21] MEDS: AMLODIPINE BESYLATE 10 MG TABLET GT SCH (09:05)
[2022-03-21] MEDS: ASPIRIN 81 MG TAB.CHEW GT SCH (09:05)
[2022-03-21] MEDS: IV D5/0.45 NACL 1,000 ML IV PRN (10:27)
[2022-03-21] MEDS ORDERED: POTASSIUM CL. PREMIX PERIPHER. 50 ML IV SCH (11:00)
[2022-03-21 16:00] VITALS: BP 123/87
--- NOTE | 2022-03-21 18:42 | NUR ---
RN NOTES NO SIGNIFCANT CHANGES NOTED ON THIS SHIFT, WILL ENDORSE TO ELEVATOR CONDUCTOR NURSE FOR CONTINUITY OF CARE
--- NOTE | 2022-03-21 19:40 | NUR ---
MS RN OPENING NOTE RECEIVED PT IN BED AWAKE. A/O X 1, NO DISTRESS OR DISCOMFORT NOTED. NO S/S OF PAIN NOTED. ON RA TOLERATING WELL. PT ON GT FEEDING 50 ML/HR, 0 ML RESIDUAL NOTED. YULIANA WITH MIDLINE INTACT AND PATENT. RUNNING D5 1/2 NS AT 75 ML/HR, F/C INTACT AND PATENT DRAINING YELLOWISH COLOR URINE. NOTED WITH B SOFT WRIST RESTRAINTS, ALL SAFETY MEASURES IN PLACE, BED IN LOWEST AND LOCKED POSITION, BED ALARM ON, WILL CONTINUE TO MONITOR THROUGHOUT THE SHIFT.
[2022-03-21] MEDS: NEPRO 1,000 ML BOTTLE GT SCH (22:02)
[2022-03-22] VITALS: BP 133/72
--- NOTE | 2022-03-22 | NUR ---
RN NOTE BS CHECKED AT 83 MG/DL, NO COVERAGE GIVEN PER SLIDING SCALE. WILL CONT TO MONITOR PT.
[2022-03-22 00:30] VITALS: BP 120/74
--- NOTE | 2022-03-22 00:30 | NUR ---
RN RECEIVING NOTE PATIENT TRANSFERRED TO 3W FROM [facility]. PATIENT ARRIVED STABLE. NO S/S OF DISTRESS, BREATHING WITHOUT DIFFICULTY ON ROOM AIR. YULIANA MIDLINE #18 INTACT AND PATENT. NEPRO CONTINUED VIA FEEDING AT 50ML/HR. PATIENT VS WNL AND STABLE. ALL BELONGS ACCOUNTED FOR. WILL CONTINUE TO MONITOR PATIENT.
--- NOTE | 2022-03-22 00:30 | NUR ---
RN NOTE PT TRANSFERRED TO 3W ROOM 304-1. REPORT GIVEN TO LYNNE LUNDBERG FOR CONTINUITY OF CARE.
[2022-03-22] MEDS: BLOOD SUGAR DIAGNOSTIC 1 EACH STRIP IN SCH ×4 (00:39→18:05)
[2022-03-22] MEDS: IV D5/0.45 NACL 1,000 ML IV PRN ×2 (01:09→17:36)
[2022-03-22] MEDS: INSULIN REGULAR, HUMAN 100 UNIT/ML 3 ML VIAL SQ PRN (05:55)
--- NOTE | 2022-03-22 06:50 | NUR ---
RN CLOSING NOTE PATIENT ASLEEP IN BED. NO S/S OF DISTRESS, BREATHIING WITHOUT DIFFICULTY ON ROOM AIR. YULIANA MIDLINE #18 INTACT AND PATENT W/ NS 75ML/HR. NEPRO 1.8 RUNNING AT 50ML/HR. SAFETY MEASURES IN PLACE: BED LOCKED AND IN LOWEST POSITION, RAILS UP X2, CALL CARRERA WITHIN REACH. WILL ENDORSE TO NEXT SHIFT FOR JIMY.
--- NOTE | 2022-03-22 07:46 | NUR ---
RN OPENING NOTE PATIENT AWAKE IN BED RESTING AT THE MOMENT A/O X 1. NO S/S OF PAIN NOTED AT THIS TIME. ON ROOM AIR, NO DISTRESS OR SHORTNESS OF BREATH NOTED. IV ACCESS YULIANA MIDLINE, INTACT, PATENT AND FLUSHING WELL. PATIENT HAVE GOFF CATHETER IN PLACE AN DRAINING WELL. PATIENT HAVE A G-TUBE IN PLACE, FEEDING RUNNING NEPRO1.8 @50ML/HR. FALL AND SAFETY MEASURES IN PLACE, BED ALARM ON, BED IN LOW AND LOCK POSITION, CALL LIGHT AND TABLE WITHIN EASY REACH, SIDE RAILS X2. WILL CONTINUE TO MONITOR.
[2022-03-22 08:00] VITALS: BP 116/77
[2022-03-22] MEDS: METOCLOPRAMIDE HCL 10 MG/2 ML VIAL IV SCH ×3 (10:37→17:11)
[2022-03-22] MEDS: PANTOPRAZOLE 40 MG/PACK PACK GT SCH (10:37)
[2022-03-22] MEDS: ASPIRIN 81 MG TAB.CHEW GT SCH (10:38)
[2022-03-22] MEDS: ALLOPURINOL 100 MG TABLET GT SCH (10:38)
[2022-03-22] MEDS: CARVEDILOL 3.125 MG TABLET GT SCH ×2 (10:39→17:11)
[2022-03-22] MEDS: AMLODIPINE BESYLATE 10 MG TABLET GT SCH (10:42)
[2022-03-22 16:00] VITALS: BP 121/72
[2022-03-22 17:11] VITALS: BP 121/72
--- NOTE | 2022-03-22 19:34 | NUR ---
RN CLOSING NOTE PATIENT AWAKE IN BED RESTING AT THE MOMENT A/O X 1. NO S/S OF PAIN NOTED AT THIS TIME. ON ROOM AIR, NO DISTRESS OR SHORTNESS OF BREATH NOTED. IV ACCESS YULIANA MIDLINE, INTACT, PATENT AND FLUSHING WELL. PATIENT HAVE GOFF CATHETER IN PLACE AN DRAINING WELL, OUTPUT 325ML. PATIENT HAVE A G-TUBE IN PLACE, FEEDING RUNNING NEPRO1.8 @50ML/HR. SCHEDULE MEDICATIONS ADMINISTERED. PATIENT WAS TURNED AND REPOSITIONED PER PROTOCOL. FALL AND SAFETY MEASURES IN PLACE, BED ALARM ON, BED IN LOW AND LOCK POSITION, CALL LIGHT AND TABLE WITHIN EASY REACH, SIDE RAILS X2. WILL ENDORSE TO FACTORY MAINTENANCE TECHNICIAN.
--- NOTE | 2022-03-22 19:50 | NUR ---
RN NOTES CALLED [facility] BY PHONE NUMBER [phone] AT 1950 AND GAVE REPORT TO JUSTICE. CALLED THE FACILITY, JUSTICE STATED THEY CAN NOT HEAR AND THEY HAD ISSUE WITH FACILITY PHONES. JUSTICE CALLED BACK WITH HER OWN PHONE.
--- NOTE | 2022-03-22 22:39 | NUR ---
BRICK VENEER MAKER NOTES DISCHARGE PATIENT IN STABLE CONDITION . 2 MT CAME . ALL THE DISCHARGE INSTRUCTIONS GIVEN TO THE [place] STAFF AND FACILITY NURSE JUSTICE. PATIENT A/O TIMES 1. NO PAIN NOTED. NO SOB NOTED. NO DISTRESS NOTED. RIGHT UPPER ARM MID LINE REMOVED COVERED WITH DRY DRESSING NO BLEEDING NOTED. THE TIP OF THE LINE NOTED INTACT. ID BAND REMOVED . GTUBE INTACT AND PATENT. FLUSHING WELL. PATIENT LEFT HOSPITAL IN STABLE CONDITION AT 2130. MD AND CHARGE NURSE HERBERT AWARE OF THE DISCHARGE.
== END 2022-03-22 21:40 | DRG 720 ==
LOC: ER 14:33 → TELE 19:09 → TELE1 03-11 22:11 → TELE-TD 03-11 22:26 → TELE1 03-17 11:09 → MEDSG1 03-21 09:58 → MED 03-22 00:23
PROVIDERS: ADMIT Nurse Practitioner Acute Care; ATTEND Nurse Practitioner Family
PROC: 05HB33Z Insertion of Infusion Device into Right Basilic Vein, Percutaneous Approach (ICD-10-PCS; principal; 2022-03-12)
DX: A41.9 Sepsis, unspecified organism (principal); J96.01 Acute respiratory failure with hypoxia; N17.0 Acute kidney failure with tubular necrosis; J69.0 Pneumonitis due to inhalation of food and vomit; R53.2 Functional quadriplegia; R64 Cachexia; G93.1 Anoxic brain damage, not elsewhere classified; E43 Unspecified severe protein-calorie malnutrition; K94.23 Gastrostomy malfunction; Z86.74 Personal history of sudden cardiac arrest; N39.0 Urinary tract infection, site not specified; Z20.822 Contact with and (suspected) exposure to COVID-19; Z78.9 Other specified health status; J45.909 Unspecified asthma, uncomplicated; R13.10 Dysphagia, unspecified; Z99.2 Dependence on renal dialysis; Z79.899 Other long term (current) drug therapy; Z68.1 Body mass index [BMI] 19.9 or less, adult; K76.0 Fatty (change of) liver, not elsewhere classified; F19.21 Other psychoactive substance dependence, in remission; Z79.01 Long term (current) use of anticoagulants; Z79.4 Long term (current) use of insulin; Z79.82 Long term (current) use of aspirin; R62.7 Adult failure to thrive; F09 Unspecified mental disorder due to known physiological condition; I70.0 Atherosclerosis of aorta; E83.39 Other disorders of phosphorus metabolism; E87.0 Hyperosmolality and hypernatremia; D75.839 Thrombocytosis, unspecified; D68.59 Other primary thrombophilia; D64.9 Anemia, unspecified; R74.01 Elevation of levels of liver transaminase levels; E78.5 Hyperlipidemia, unspecified; E83.41 Hypermagnesemia; E87.6 Hypokalemia; K64.8 Other hemorrhoids; I12.9 Hypertensive chronic kidney disease with stage 1 through stage 4 chronic kidney disease, or unspecified chronic kidney disease; N18.9 Chronic kidney disease, unspecified; T36.5X5A Adverse effect of aminoglycosides, initial encounter; Y92.129 Unspecified place in nursing home as the place of occurrence of the external cause; M62.58 Muscle wasting and atrophy, not elsewhere classified, other site; S91.111A Laceration without foreign body of right great toe without damage to nail, initial encounter; X58.XXXA Exposure to other specified factors, initial encounter; Y92.9 Unspecified place or not applicable
CPT/HCPCS: 31720; 36410; 36415; 36600; 71045-TC; 76700-TC; 76770-TC; 80048-TC; 80053-TC; 80076-TC; 80170-TC; 80202-TC; 81001; 82247-TC; 82248-TC; 82565-TC; 82803-TC; 82947-TC; 82962-TC; 83605-TC; 83735-TC; 83880; 84100-TC; 84484-TC; 85025-TC; 85730-TC; 87040-TC; 87081-TC; 87086-TC; 93307-TC; 93970-TC; 94762-TC; 94799-TC; A4216; A6253; A6403; C9113; C9803; G0378; J0696; J1580; J1644; J1815; J1956; J2185; J2248; J2765; J3370; J3480; J3490; J7030; J7050; J7060; J7070